=== PATIENT | male | born 1935 | race Caucasian/White ===

== ENCOUNTER 2016-03-05 15:58 | Observation (INO) | payer MEDICARE, BC, OTHER ==
[~2016-03-05] VITALS: Ht 190.5 cm; Wt 100.0 kg
[2016-03-05] VITALS (8 sets, daily range): BP systolic 122–224; BP diastolic 58–95; PULSE 56–78; RESP 16–18; TEMP 97.9; O2SAT 97–98
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
[2016-03-05 16:59] LABS: BLOOD, URINE TRACE (NEG); GLUCOSE,URINE 1000 mg/dL (NEG); KETONE, URINE NEG (NEG); NITRITE,URINE NEG (NEG); PH, URINE 5.5 (5.0-8.5); URINE COLOR LIGHT-YELLOW (YELLW/STRAW)
[2016-03-05 17:00] LABS: AUTOMATED NEUTROPHIL # 6.6 TH/MM3 (1.8-7.7); BASOPHIL % 0.4 % (0.0-2.0); EOSINOPHIL % 0.5 % (0.0-4.0); HEMATOCRIT 38.1 % (39.0-51.0); HEMO FLAGS DIFF FINAL; LYMPH % 16.5 % (9.0-44.0); LYMPHOCYTE # 1.5 TH/MM3 (1.0-4.8); MEAN CELL VOLUME 86.5 FL (80.0-100.0); MEAN CORPUSCULAR HEMOGLOBIN 28.3 PG (27.0-34.0); MEAN CORPUSCULAR HGB CONC 32.8 % (32.0-36.0); MONO % 8.5 % (0.0-8.0); NEUT % 74.1 % (16.0-70.0); PLATELET COUNT 178 TH/MM3 (150-450); RED BLOOD COUNT 4.41 MIL/MM3 (4.50-5.90); RED CELL DISTRIBUTION WIDTH 13.5 % (11.6-17.2); WHITE BLOOD COUNT 8.9 TH/MM3 (4.0-11.0)
[2016-03-05 17:00] LABS: COMMENT (UR) CULT NOT INDICATED; CULTURE IF INDICATED CULT NOT INDICATED
[2016-03-05 17:09] LABS: AMPHETAMINE, URINE NEG (NEG); BARBITURATES, URINE NEG (NEG); COCAINE, URINE NEG (NEG)
--- NOTE | 2016-03-05 17:20 | RADRPT ---
EXAM DATE/TIME: 03/05/2016 16:49 [facility] COMPARISON: No previous studies available for comparison. INDICATIONS : Chest pain, left chest mass removed recently. MEDICAL HISTORY : None. SURGICAL HISTORY : Left chest mass removed 03/03/16. ENCOUNTER: Initial ACUITY: 1 day PAIN SCORE: Non-responsive. LOCATION: Bilateral chest FINDINGS: A single view of the chest demonstrates the lungs to be symmetrically aerated without evidence of mas s, infiltrate or effusion. The cardiomediastinal contours are unremarkable. Osseous structures are intact. CONCLUSION: No acute disease. Gregg Chopra MD FACR on March 05, 2016 at 17:18 Board Certified Radiologist. This report was verified electronically.
[2016-03-05 17:30] LABS: ANION GAP 10 MEQ/L (5-15)
[2016-03-05 17:33] LABS: ALKALINE PHOSPHATASE 151 U/L (45-117); ALT (GPT) 28 U/L (12-78); AST (GOT) 18 U/L (15-37); BICARBONATE 23.6 MEQ/L (21.0-32.0); BLOOD UREA NITROGEN 29 MG/DL (7-18); CHLORIDE 103 MEQ/L (98-107); GLOMERULAR FILTRATION RATE 38 ML/MIN (>89); POTASSIUM 4.1 MEQ/L (3.5-5.1); SODIUM (NA) 137 MEQ/L (136-145); TOTAL BILIRUBIN ADULT 0.3 MG/DL (0.2-1.0)
[2016-03-05] MEDS ORDERED: INSULIN HUMAN REGULAR 1,000 UNITS/10 ML VIAL IVP ONE (18:15)
[2016-03-05] MEDS ORDERED: hydrALAZINE HCL 20 MG/ML VIAL IV PUSH PRN (20:00)
[2016-03-05] MEDS ORDERED: NALOXONE HCL 0.4 MG/ML AMP IV PRN (20:00)
[2016-03-05] MEDS ORDERED: SODIUM CHLORIDE 0.9% FLUSH 5 ML FLUSH FLUSH PRN (20:00)
[2016-03-05] MEDS ORDERED: GLUCAGON 1 MG/ML VIAL OTHER PRN (20:30)
[2016-03-05] MEDS ORDERED: DEXTROSE 50% IN WATER 50 ML VIAL(D50) IV PUSH PRN (20:30)
--- NOTE | 2016-03-05 20:48 | RADRPT ---
EXAM DATE/TIME: 03/05/2016 20:39 [facility] COMPARISON: No previous studies available for comparison. INDICATIONS : Severe confusion, worsening dementia. RADIATION DOSE: 47.63 CTDIvol (mGy) MEDICAL HISTORY : Dementia. Diabetes mellitus type 2. SURGICAL HISTORY : None. ENCOUNTER: Initial ACUITY: 1 day PAIN SCALE: 0/10 LOCATION: cranial TECHNIQUE: Multiple contiguous axial images were obtained of the head. Using automated exposure control and adj ustment of the mA and/or kV according to patient size, radiation dose was kept as low as reasonably a chievable to obtain optimal diagnostic quality images. FINDINGS: CEREBRUM: The ventricles are normal for age. Areas of low-attenuation are seen in the periventricular white mat ter. No evidence of midline shift, mass lesion, hemorrhage or acute infarction. No extra-axial flui d collections are seen. POSTERIOR FOSSA: The cerebellum and brainstem are intact. The 4th ventricle is midline. The cerebellopontine angle i s unremarkable. EXTRACRANIAL: The visualized portion of the orbits is intact. SKULL: The calvaria is intact. No evidence of skull fracture. CONCLUSION: No acute intracranial disease. Ryder Quevedo MD on March 05, 2016 at 20:46 Board Certified Radiologist. This report was verified electronically.
--- NOTE | 2016-03-05 21:26 | HHI.HP ---
[facility] Service [facility] Primary Care Physician Gael Gandhi MD Admission Diagnosis JOSE, dementia, hypertensive urgency Diagnoses: Chief Complaint: Argument with Travel History International Travel<30 Days: No Contact w/Intl Traveler <30 Da: No Traveled to Known Affected Are: No History of Present Illness History from ER PA Williams perez paperwork, and patient himself. patient however no doubt has baseline dementia and at times would forget some details. He tried to explain to me the circumstances of why he is here and her Kramer act. However he does not make much sense when he explained the details. While in emergency room, he was also noted to have blood pressure of 220s over 90s. The vitals were noted since 4 PM. However he did not receive any medications since he was not in a monitored bed in probable part. I was then called for medical admission because of these elevated blood pressure. I therefore requested for patient to be moved to medical pod immediately. Patient on examination was calm, no agitation. Also denies any pain. He reports to me that his blood pressure has been high while it at home as well. However denies any prior history of hypertension as for as he knows. Denies any headache/nausea/vomiting/chest pain/diaphoresis/shortness of breath. He does state that he is a diabetic. Review of Systems Constitutional: DENIES: Fatigue, Fever, Weight gain, Weight loss, Chills, Dizziness Respiratory: DENIES: Apneas, Cough, Wheezing, Hemoptysis, Sputum production, Shortness of breath Cardiovascular: DENIES: Chest pain, Palpitations, Syncope, Dyspnea on Exertion , PND, Lower Extremity Edema, Orthopnea, Claudication Gastrointestinal: DENIES: Abdominal pain, Black stools, Bloody stools, Constipation, Diarrhea, Nausea, Vomiting Genitourinary: DENIES: Urinary frequency, Urinary incontinence, Urgency, Hematuria, Dysuria Neurologic: DENIES: Abnormal gait, Headache, Localized weakness, Seizures, Poor Balance Past Family Social History Past Medical History Diabetes Recent lipoma resection of his chest 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 Past Surgical History Partial colectomy per patient. Reported Medications Patient's medications listed on EMRreviewed Allergies: Coded Allergies: No Known Allergies (Unverified , 03/05/16) Family History Denies family history of any medical issues. Social History Denies smoking/alcohol abuse/drug abuse. Physical Exam Vital Signs Vital Signs Date Time Temp Pulse Resp B/P Pulse Ox O2 Delivery O2 Flow Rate FiO2 03/05/16 21:23 59 16 175/74 98 Room Air 03/05/16 20:23 78 18 203/82 98 Room Air 03/05/16 20:05 63 18 03/05/16 19:59 65 18 176/84 98 Room Air 03/05/16 17:50 61 16 218/95 97 Room Air 03/05/16 16:04 97.9 56 16 224/91 97 Physical Exam GENERAL: This is a well-nourished, well-developed patient, in no apparent distress. SKIN: No rashes, ecchymoses or lesions. Cool and dry. HEAD: Atraumatic. Normocephalic. No temporal or scalp tenderness. EYES: No scleral icterus. No injection or drainage. ENT: Nose without bleeding, purulent drainage or septal hematoma.Airway patent. NECK: Trachea midline. No JVD. Supple, nontender, no meningeal signs. CARDIOVASCULAR: Regular rate and rhythm without murmurs, gallops, or rubs. RESPIRATORY: Clear to auscultation. Breath sounds equal bilaterally. No wheezes , rales, or rhonchi. GASTROINTESTINAL: Abdomen soft, non-tender, nondistended. No guarding. MUSCULOSKELETAL: Extremities without clubbing, cyanosis, or edema. No calf tenderness. NEUROLOGICAL: Awake and alert. Motor and sensory grossly within normal limits.Normal speech. Laboratory Laboratory Tests Test 03/05/16 03/05/16 16:21 16:38 Urine Color LIGHT-YELLOW Urine Turbidity CLEAR Urine pH 5.5 Urine Specific [place] 1.020 Urine Protein TRACE Urine Glucose (UA) 1000 Urine Ketones NEG Urine Occult Blood TRACE Urine Nitrite NEG Urine Bilirubin NEG Urine Urobilinogen LESS THAN 2.0 Urine Leukocyte Esterase NEG Urine RBC 1 Microscopic Urinalysis Comment CULT NOT INDICATED Urine Opiates Screen NEG Urine Barbiturates Screen NEG Urine Amphetamines Screen NEG Urine Benzodiazepines Screen NEG Urine Cocaine Screen NEG Urine Cannabinoids Screen NEG White Blood Count 8.9 Red Blood Count 4.41 Hemoglobin 12.5 Hematocrit 38.1 Mean Corpuscular Volume 86.5 Mean Corpuscular Hemoglobin 28.3 Mean Corpuscular Hemoglobin 32.8 Concent Red Cell Distribution Width 13.5 Platelet Count 178 Mean Platelet Volume 8.9 Neutrophils (%) (Auto) 74.1 Lymphocytes (%) (Auto) 16.5 Monocytes (%) (Auto) 8.5 Eosinophils (%) (Auto) 0.5 Basophils (%) (Auto) 0.4 Neutrophils # (Auto) 6.6 Lymphocytes # (Auto) 1.5 Monocytes # (Auto) 0.8 Eosinophils # (Auto) 0.0 Basophils # (Auto) 0.0 CBC Comment DIFF FINAL Differential Comment Sodium Level 137 Potassium Level 4.1 Chloride Level 103 Carbon Dioxide Level 23.6 Anion Gap 10 Blood Urea Nitrogen 29 Creatinine 1.75 Estimat Glomerular Filtration 38 Rate Random Glucose 308 Calcium Level 8.8 Total Bilirubin 0.3 Aspartate Amino Transf 18 (AST/SGOT) Alanine Aminotransferase 28 (ALT/SGPT) Alkaline Phosphatase 151 Total Protein 6.8 Albumin 3.4 Ethyl Alcohol Level LESS THAN 3 Result Diagram: 03/05/16 1638 03/05/16 1638 Imaging Last [address] 03/05/16 0000 Signed Impressions: Service Date/Time: Saturday, March 05, 2016 20:39 - CONCLUSION: No acute intracranial disease. Ryder Quevedo MD Chest X-Ray 03/05/16 0000 Signed Impressions: Service Date/Time: Saturday, March 05, 2016 16:49 - CONCLUSION: No acute disease. Gregg Chopra MD FACR Assessment and Plan Problem List: (1) Dementia ICD Code: F03.90 Status: Acute (2) Acute kidney injury ICD Code: N17.9 Status: Acute (3) Hypertensive urgency ICD Code: I16.0 Status: Acute Assessment and Plan Impression: Dementiawith acute worsening Acute renal failuresecondary to dehydration Dehydration Hypertensive crisis Kramer act status History of diabetes History of recent lipoma resection a few years ago from the chest Plan: Start patient on Norvasc 10 mg by mouth one dose now. If the blood pressure does not reach goal in about 40 minutes after Norvasc, will use hydralazine 10 mg IV every 30 minutes when necessary for blood pressure greater than 170/90. Patient's nurse is informed of the above orders and to be cautious with BP control. Head CT stat. DVT prophylaxiswith Xarelto. GI prophylaxis on pantoprazole. Discussed Condition With patient, ER Problem Qualifiers (1) Dementia: Qualified Code: F03.91 - Dementia with behavioral disturbance, unspecified dementia type Rafa Cunningham MD Mar 05, 2016 21:26
[2016-03-05] MEDS: SODIUM CHLORIDE 0.9% FLUSH 5 ML FLUSH FLUSH SCH (21:31)
[2016-03-05] MEDS: INSULIN ASPART SUPPLEMENTAL SCALE SQ SCH (21:31)
[2016-03-06] VITALS (9 sets, daily range): BP systolic 131–193; BP diastolic 60–94; PULSE 57–82; RESP 18–20; TEMP 96.7–98.2; O2SAT 95–98
[2016-03-06 04:49] LABS: AUTOMATED NEUTROPHIL # 4.9 TH/MM3 (1.8-7.7); BASOPHIL % 0.6 % (0.0-2.0); EOSINOPHIL # 0.1 TH/MM3 (0-0.4); EOSINOPHIL % 1.7 % (0.0-4.0); HEMATOCRIT 35.5 % (39.0-51.0); HEMO FLAGS DIFF FINAL; LYMPH % 25.6 % (9.0-44.0); LYMPHOCYTE # 2.1 TH/MM3 (1.0-4.8); MEAN CORPUSCULAR HEMOGLOBIN 28.6 PG (27.0-34.0); MEAN CORPUSCULAR HGB CONC 33.7 % (32.0-36.0); MONO % 10.6 % (0.0-8.0); NEUT % 61.5 % (16.0-70.0); PLATELET COUNT 196 TH/MM3 (150-450); RED BLOOD COUNT 4.17 MIL/MM3 (4.50-5.90); RED CELL DISTRIBUTION WIDTH 13.3 % (11.6-17.2)
[2016-03-06 05:13] LABS: BICARBONATE 28.2 MEQ/L (21.0-32.0); POTASSIUM 3.9 MEQ/L (3.5-5.1)
[2016-03-06] MEDS: INSULIN ASPART SUPPLEMENTAL SCALE SQ SCH ×4 (06:37→21:00)
[2016-03-06] MEDS ORDERED: DOCUSATE SODIUM 100 MG CAP PO PRN (08:45)
[2016-03-06] MEDS ORDERED: DOCUSATE SODIUM 50 MG/SENNA 8.6 MG TAB PO PRN (08:45)
[2016-03-06] MEDS ORDERED: cloNIDine HCL 0.1 MG TAB PO PRN (08:45)
[2016-03-06] MEDS ORDERED: ONDANSETRON HCL 4 MG/2 ML VIAL IV PRN (08:45)
[2016-03-06] MEDS ORDERED: CALCIUM CARBONATE 500 MG CHEWABLE TAB CHEW PRN (08:45)
[2016-03-06] MEDS ORDERED: ACETAMINOPHEN 325 MG TAB PO PRN (08:45)
[2016-03-06] MEDS ORDERED: amLODIPine BESYLATE 5 MG TAB PO SCH (09:00)
[2016-03-06] MEDS ORDERED: PILL SPLITTER OTHER PRN (09:00)
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
[2016-03-06 09:56] LABS: CKMB 5.4 NG/ML (0.5-3.6)
[2016-03-06] MEDS ORDERED: DONE5TAB7 PO (10:06)
[2016-03-06] MEDS ORDERED: HYDR-3366 PO (10:06)
[2016-03-06] MEDS ORDERED: NAME10TA PO (10:06)
[2016-03-06] MEDS ORDERED: LANTUS2P SQ (10:06)
[2016-03-06] MEDS: SODIUM CHLORIDE 0.9% FLUSH 5 ML FLUSH FLUSH SCH ×2 (10:21→21:00)
[2016-03-06] MEDS ORDERED: CITA10TA4 PO (10:34)
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
[2016-03-06] MEDS: INSULIN DETEMIR 100 UNITS/ML VIAL SQ SCH (16:07)
[2016-03-06] MEDS ORDERED: amLODIPine BESYLATE 5 MG TAB PO ONE (16:45)
[2016-03-06] MEDS: DONEPEZIL HCL 5 MG TAB PO SCH (22:16)
[2016-03-06] MEDS: MEMANTINE HCL 10 MG TAB PO SCH (22:16)
[2016-03-06] MEDS ORDERED: HALOPERIDOL LACTATE 5 MG/ML AMP IV PUSH ONE (23:00)
[2016-03-07] VITALS (8 sets, daily range): BP systolic 108–159; BP diastolic 55–75; PULSE 59–84; RESP 16–20; TEMP 96.9–98.3; O2SAT 93–96
[2016-03-07] MEDS ORDERED: HALOPERIDOL LACTATE 5 MG/ML AMP IM PRN (05:15)
[2016-03-07] MEDS: INSULIN ASPART SUPPLEMENTAL SCALE SQ SCH ×4 (06:21→21:00)
[2016-03-07] MEDS ORDERED: AMLO5 PO (07:58)
[2016-03-07] MEDS ORDERED: QUET1TAB7 PO (07:58)
[2016-03-07] MEDS ORDERED: LEVEMIR SQ (07:58)
[2016-03-07] MEDS ORDERED: NOVOLOGP2 SQ (07:58)
--- NOTE | 2016-03-07 07:59 | HHI.DCPOC ---
Discharge Care Plan Diagnosis: (1) Dementia (2) DM (diabetes mellitus) (3) HTN (hypertension) Goals to Promote Your Health * To prevent worsening of your condition and complications * To maintain your health at the optimal level Directions to Meet Your Goals Take your medications as prescribed Follow your dietary instruction Follow activity as directed Keep your appointments as scheduled Take your immunizations and boosters as scheduled If your symptoms worsen call your PCP, if no PCP go to Urgent Care Center or Emergency Room Smoking is Dangerous to Your Health. Avoid second hand smoke Call the 24-hour hour crisis hotline for domestic abuse at Tamela Vela PA-C Mar 07, 2016 07:59
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
[2016-03-07] MEDS: MEMANTINE HCL 10 MG TAB PO SCH ×2 (09:00→22:25)
[2016-03-07 09:26] LABS: AUTOMATED NEUTROPHIL # 5.3 TH/MM3 (1.8-7.7); BASOPHIL % 0.4 % (0.0-2.0); EOSINOPHIL # 0.1 TH/MM3 (0-0.4); EOSINOPHIL % 1.1 % (0.0-4.0); HEMATOCRIT 36.7 % (39.0-51.0); HEMO FLAGS DIFF FINAL; LYMPH % 19.3 % (9.0-44.0); LYMPHOCYTE # 1.5 TH/MM3 (1.0-4.8); MEAN CELL VOLUME 84.6 FL (80.0-100.0); MEAN CORPUSCULAR HEMOGLOBIN 28.6 PG (27.0-34.0); MEAN CORPUSCULAR HGB CONC 33.8 % (32.0-36.0); MONO % 9.6 % (0.0-8.0); NEUT % 69.6 % (16.0-70.0); PLATELET COUNT 200 TH/MM3 (150-450); RED BLOOD COUNT 4.34 MIL/MM3 (4.50-5.90); RED CELL DISTRIBUTION WIDTH 13.3 % (11.6-17.2); WHITE BLOOD COUNT 7.7 TH/MM3 (4.0-11.0)
[2016-03-07 09:32] LABS: BICARBONATE 26.5 MEQ/L (21.0-32.0); MAGNESIUM 2.1 MG/DL (1.5-2.5); POTASSIUM 3.7 MEQ/L (3.5-5.1)
[2016-03-07] MEDS: QUEtiapine FUMARATE 25 MG TAB PO SCH ×2 (09:32→13:45)
[2016-03-07] MEDS: HEPARIN SODIUM - SQ 10,000 UNITS/ML VIAL SQ SCH ×2 (09:32→22:25)
[2016-03-07] MEDS: SODIUM CHLORIDE 0.9% FLUSH 5 ML FLUSH FLUSH SCH ×2 (09:32→22:25)
[2016-03-07] MEDS: amLODIPine BESYLATE 5 MG TAB PO SCH (09:32)
[2016-03-07] MEDS: INSULIN DETEMIR 100 UNITS/ML VIAL SQ SCH (09:32)
[2016-03-07] MEDS: DONEPEZIL HCL 5 MG TAB PO SCH (22:25)
[2016-03-08 01:26] VITALS: PULSE 73
[2016-03-08 04:32] VITALS: BP 125/60; PULSE 62; RESP 20; TEMP 98.1; O2SAT 94
[2016-03-08] MEDS: INSULIN ASPART SUPPLEMENTAL SCALE SQ SCH ×2 (06:20→13:29)
[2016-03-08 07:52] VITALS: BP 146/65; PULSE 67; RESP 18; O2SAT 95
[2016-03-08 08:15] LABS: BICARBONATE 27.2 MEQ/L (21.0-32.0); MAGNESIUM 2.2 MG/DL (1.5-2.5); POTASSIUM 4.3 MEQ/L (3.5-5.1)
[2016-03-08] MEDS: INSULIN DETEMIR 100 UNITS/ML VIAL SQ SCH (08:46)
[2016-03-08] MEDS: HEPARIN SODIUM - SQ 10,000 UNITS/ML VIAL SQ SCH (08:46)
[2016-03-08] MEDS: amLODIPine BESYLATE 5 MG TAB PO SCH (08:47)
[2016-03-08] MEDS: QUEtiapine FUMARATE 25 MG TAB PO SCH ×2 (08:47→13:29)
[2016-03-08] MEDS: MEMANTINE HCL 10 MG TAB PO SCH (08:47)
[2016-03-08] MEDS: SODIUM CHLORIDE 0.9% FLUSH 5 ML FLUSH FLUSH SCH (08:47)
--- NOTE | 2016-03-08 10:12 | HHI.PR ---
Subjective Remarks Follow-up for dementia with agitation, awaiting psychiatric bed. The patient is seen with sitter at bedside. Discussed with RN, no acute events overnight. He denies any headache or dizziness. No medical complaints today. Objective Vitals Vital Signs Date Time Temp Pulse Resp B/P Pulse Ox O2 Delivery O2 Flow Rate FiO2 03/08/16 07:52 67 18 146/65 95 03/08/16 04:32 98.1 62 20 125/60 94 03/08/16 01:26 73 03/07/16 23:52 98.2 65 20 129/60 93 03/07/16 20:10 98.2 60 20 120/59 96 03/07/16 18:13 59 03/07/16 15:50 97.9 60 18 108/55 95 03/07/16 11:44 97.6 74 18 138/62 94 I/O 03/07/16 03/07/16 03/07/16 03/08/16 03/08/16 03/08/16 07:00 15:00 23:00 07:00 15:00 23:00 Intake Total 240 ml Output Total 25 ml 10 ml Balance 215 ml -10 ml Intake Oral 240 ml Output Drainage Total 25 ml 10 ml # Voids 1 2 1 Result Diagram: 03/07/16 0832 03/08/16 0750 Imaging Last Impressions Head CT 03/05/16 0000 Signed Impressions: Service Date/Time: Saturday, March 05, 2016 20:39 - CONCLUSION: No acute intracranial disease. Ryder Quevedo MD Chest X-Ray 03/05/16 0000 Signed Impressions: Service Date/Time: Saturday, March 05, 2016 16:49 - CONCLUSION: No acute disease. Gregg Chopra MD FACR Objective Remarks GENERAL: Well-developed well-nourished. In no acute distress. SKIN: Warm and dry. Horizontal surgical incision at left upper chest, secured with steri strips, no surrounding erythema/edema, nontender to palpation, MICK drain in place. HEENT: Normocephalic. Pupils equal and round. Mucous membranes pink and moist. CARDIOVASCULAR: Regular rate and rhythm. No murmur appreciated. RESPIRATORY: No accessory muscle use. Clear to auscultation. Breath sounds equal bilaterally. GASTROINTESTINAL: Abdomen soft, non-tender, nondistended. Bowel sounds x4. MUSCULOSKELETAL: No obvious deformities. No clubbing or cyanosis. No edema. NEUROLOGICAL: Awake and alert. No focal neurological deficits. Moves upper and lower extremities spontaneously. Normal speech. PSYCHIATRIC: Demented, calm mood and affect; insight and judgment limited. A/P Problem List: (1) Dementia ICD Code: F03.90 Status: Acute (2) Acute kidney injury ICD Code: N17.9 Status: Acute (3) Hypertensive urgency ICD Code: I16.0 Status: Resolved Assessment and Plan 80-year-old male with: Dementia with Behavioral Disturbance: presented under Kramer Act for aggressive behavior towards his . Likely worsening dementia compounded by dehydration with JOSE and hypertensive urgency. No SI/HI. Continue patient's Namenda/ Aricept. Consult PT/OT. Consulted psychiatry, recommended admission to inpatient psychiatry, started on Seroquel. Haldol IM prn. Restraints prn. Hypertensive Urgency with Accelerated HTN: BP 224/91 upon arrival with AMS as above. S/p Norvasc 10mg x1, BP now improving. Started on low dose Norvasc 5mg daily. DVT significantly improved. IV hydralazine and po clonidine prn. Diabetes Mellitus with hypoglycemia: Patient reported taking Lantus 30u daily, resumed at 20u hs. and blood glucose 74. Check hemoglobin A1c. Decreased baseline insulin to 14 units at bedtime. Continue Accu-cheks and cover with SSI. Hypoglycemic protocol. JOSE: Cr 1.75, likely secondary to dehydration, poor oral intake, no previous labs to compare. Renal function improved from admission. Monitor. Recent Lipoma Resection at Left Upper Chest: reportedly done at [facility] by Dr. Love. RN contacted surgeon, plan to remove MICK drain when < 20 cc output in 24 hrs. Patient with 35ml output today. Continue to monitor. DVT prophylaxis: SCDs Written by Anshul Bonilla, acting as scribe for Dr. Muniz on 03/08/16 at 10:09. The documentation accurately reflects the work performed [id number] by me on at [id number] Discharge Planning The patient is medically cleared for discharge awaiting psychiatric bed. Problem Qualifiers (1) Dementia: Qualified Code: F03.91 - Dementia with behavioral disturbance, unspecified dementia type Anshul Bonilla Mar 08, 2016 10:12 Heriberto Muniz MD Mar 08, 2016 14:31
[2016-03-08 12:00] VITALS: BP 132/63; PULSE 67; RESP 20; TEMP 95.5; O2SAT 96
--- NOTE | 2016-03-08 14:31 | HHI.DS ---
Discharge Summary Admission Date Mar 05, 2016 at 19:55 Discharge Date: Mar 08, 2016 Admitting Diagnosis JOSE, dementia, hypertensive urgency (1) Dementia ICD Code: F03.90 Diagnosis: Principal (2) Acute kidney injury ICD Code: N17.9 Diagnosis: Principal (3) Hypertensive urgency ICD Code: I16.0 Diagnosis: Principal Procedures none Brief History - From Admission History from ER ANGELIA perez paperwork, and patient himself. patient however no doubt has baseline dementia and at times would forget some details. He tried to explain to me the circumstances of why he is here and her Kramer act. However he does not make much sense when he explained the details. While in emergency room, he was also noted to have blood pressure of 220s over 90s. The vitals were noted since 4 PM. However he did not receive any medications since he was not in a monitored bed in probable part. I was then called for medical admission because of these elevated blood pressure. I therefore requested for patient to be moved to medical pod immediately. Patient on examination was calm, no agitation. Also denies any pain. He reports to me that his blood pressure has been high while it at home as well. However denies any prior history of hypertension as for as he knows. Denies any headache/nausea/vomiting/chest pain/diaphoresis/shortness of breath. He does state that he is a diabetic. CBC/BMP: 03/07/16 0832 03/08/16 0750 Significant Findings Laboratory Tests Test 03/05/16 03/05/16 03/06/16 03/07/16 16:21 16:38 04:29 08:32 Urine Glucose (UA) 1000 mg/dL (NEG) Urine Occult Blood TRACE (NEG) Red Blood Count 4.41 MIL/MM3 4.17 MIL/MM3 4.34 MIL/MM3 (4.50-5.90) (4.50-5.90) (4.50-5.90) Hemoglobin 12.5 GM/DL 11.9 GM/DL 12.4 GM/DL (13.0-17.0) (13.0-17.0) (13.0-17.0) Hematocrit 38.1 % 35.5 % 36.7 % (39.0-51.0) (39.0-51.0) (39.0-51.0) Neutrophils (%) (Auto) 74.1 % (16.0-70.0) Monocytes (%) (Auto) 8.5 % (0.0-8.0) 10.6 % 9.6 % (0.0-8.0) (0.0-8.0) Blood Urea Nitrogen 29 MG/DL (7-18) 27 MG/DL (7-18) 23 MG/DL (7-18) Creatinine 1.75 MG/DL 1.40 MG/DL 1.34 MG/DL (0.60-1.30) (0.60-1.30) (0.60-1.30) Estimat Glomerular Filtration 38 ML/MIN (>89) 49 ML/MIN (>89) 51 ML/MIN (>89) Rate Random Glucose 308 MG/DL (74-106) Alkaline Phosphatase 151 U/L (45-117) Total Creatine Kinase 430 U/L (39-308) Creatine Kinase MB 5.4 NG/ML (0.5-3.6) Test 03/08/16 07:50 Chloride Level 110 MEQ/L (98-107) Blood Urea Nitrogen 32 MG/DL (7-18) Creatinine 1.58 MG/DL (0.60-1.30) Estimat Glomerular Filtration 42 ML/MIN (>89) Rate Imaging Last Impressions Head CT 03/05/16 0000 Signed Impressions: Service Date/Time: Saturday, March 05, 2016 20:39 - CONCLUSION: No acute intracranial disease. Ryder Quevedo MD Chest X-Ray 03/05/16 0000 Signed Impressions: Service Date/Time: Saturday, March 05, 2016 16:49 - CONCLUSION: No acute disease. Gregg Chopra MD FACR PE at Discharge GENERAL: Well-developed well-nourished. In no acute distress. SKIN: Warm and dry. Horizontal surgical incision at left upper chest, secured with steri strips, no surrounding erythema/edema, nontender to palpation, MICK drain in place. HEENT: Normocephalic. Pupils equal and round. Mucous membranes pink and moist. CARDIOVASCULAR: Regular rate and rhythm. No murmur appreciated. RESPIRATORY: No accessory muscle use. Clear to auscultation. Breath sounds equal bilaterally. GASTROINTESTINAL: Abdomen soft, non-tender, nondistended. Bowel sounds x4. MUSCULOSKELETAL: No obvious deformities. No clubbing or cyanosis. No edema. NEUROLOGICAL: Awake and alert. No focal neurological deficits. Moves upper and lower extremities spontaneously. Normal speech. PSYCHIATRIC: Demented, calm mood and affect; insight and judgment limited. Hospital Course 80-year-old male with: Dementia with Behavioral Disturbance: presented under Kramer Act for aggressive behavior towards his . Likely worsening dementia compounded by dehydration with JOSE and hypertensive urgency. No SI/HI. Continue patient's Namenda/ Aricept. Consult PT/OT. Consulted psychiatry, recommended admission to inpatient psychiatry, started on Seroquel. Haldol IM prn. Restraints prn. Hypertensive Urgency with Accelerated HTN: BP 224/91 upon arrival with AMS as above. S/p Norvasc 10mg x1, BP now improving. Started on low dose Norvasc 5mg daily. DVT significantly improved. IV hydralazine and po clonidine prn. Diabetes Mellitus with hypoglycemia: Patient reported taking Lantus 30u daily, resumed at 20u hs. and blood glucose 74. Check hemoglobin A1c. Decreased baseline insulin to 14 units at bedtime. Continue Accu-cheks and cover with SSI. Hypoglycemic protocol. JOSE: Cr 1.75, likely secondary to dehydration, poor oral intake, no previous labs to compare. Renal function improved from admission. Monitor. Recent Lipoma Resection at Left Upper Chest: reportedly done at [facility] by Dr. Love. RN contacted surgeon, plan to remove MICK drain when < 20 cc output in 24 hrs. Patient with 35ml output today. Continue to monitor. DVT prophylaxis: SCDs Pt Condition on Discharge: Stable Discharge Disposition: Disc to Psych Care Fac Discharge Time: > 30 minutes Discharge Instructions DIET: Follow Instructions for: Heart Healthy Diet, Diabetic Diet Activities you can perform: Regular-No Restrictions Follow up Referrals: PCP Follow-up - 1 Week with Gael Gandhi MD New Medications: Insulin Aspart Inj (Novolog Inj) 1,000 Unit/10 Ml Vial 1-9 UNITS SQ ACHS sugars < 70,0units; sugars 150-199,1 unit sugars 200-249,3 units; sugars 250-299,5 units sugars 300-349,7 units; sugars > 349,9 units Blood Sugar Management #10 Ref 0 ML Amlodipine (Norvasc) 5 Mg Tab 5 MG PO DAILY Blood Pressure Management #30 TAB Insulin Detemir Inj (Levemir Inj) 1,000 unit/ 10 ML Vial 20 UNITS SQ DAILYAC Blood Sugar Management #10 INJECTION Quetiapine (Quetiapine) 25 Mg Tab 25 MG PO BID@09,12 Control Mood Swing #60 TAB Continued Medications: Donepezil (Donepezil) 5 Mg Tab 5 MG PO HS Dementia #30 Ref 0 TAB Memantine (Namenda) 10 Mg Tab 10 MG PO BID Alzheimer Disease #30 Ref 0 TAB Discontinued Medications: Hydrocodone-Acetaminophen (Elmo) 10-325 Mg Tab 1 TAB PO Q4H PRN PAIN Ref 0 TAB Insulin Glargine Inj (Lantus Inj) 1,000 Unit/10 Ml Vial 25-32 UNITS SQ SLIDING SCALE PROTOC Blood Sugar Management Ref 0 VIAL Heriberto Muniz MD Mar 08, 2016 14:31
[2016-03-08] MEDS ORDERED: LANTUS2P SQ (16:29)
[2016-03-08] MEDS ORDERED: LOPE7.5C PO (16:30)
[2016-03-09] MEDS ORDERED: INSULIN DETEMIR 100 UNITS/ML VIAL SQ SCH (08:00)
[2016-03-09 10:02] LABS: HEMOGLOBIN A1a 1.1 %; HEMOGLOBIN A1b 1.9 %; HEMOGLOBIN Ao 81.6 %; HEMOGLOBIN LA1C 2.5 %; HEMOGLOBIN P3 4.4 %
== END 2016-03-08 15:00 ==
LOC: NEPB 15:58 → INTOOBSV 19:55 → NEDA 19:55 → OBSVTOIN 19:55 → NEDH 03-06 00:20 → NEPFCDU 03-06 14:42 → NEPHCDU 03-06 16:37
PROVIDERS: ADMIT Internal Medicine; ATTEND Internal Medicine
DX: F03.91 Unspecified dementia, unspecified severity, with behavioral disturbance (principal); N17.9 Acute kidney failure, unspecified; I16.0 Hypertensive urgency; E86.0 Dehydration; E11.649 Type 2 diabetes mellitus with hypoglycemia without coma; I10 Essential (primary) hypertension; S80.211A Abrasion, right knee, initial encounter; Z78.1 Physical restraint status; Z86.73 Personal history of transient ischemic attack (TIA), and cerebral infarction without residual deficits; Z79.4 Long term (current) use of insulin; W01.0XXA Fall on same level from slipping, tripping and stumbling without subsequent striking against object, initial encounter
CPT/HCPCS: 70450; 71010; 80048; 80053; 80307; 81001; 82550; 82552; 82948; 83036; 83735; 85025; 96374; 97110; 97163; 97166; 97530; 99285; G0378; G8987; G8988; G8989; J1630; J1644; J1815; 80320

== ENCOUNTER 2016-03-08 12:35 | Inpatient (IN) | payer MEDICARE, BC ==
[~2016-03-08] VITALS: Ht 190.5 cm; Wt 87.7 kg
[~2016-03-08 12:35] MED LIST: AMLO5 PO; DONE5TAB7 PO; LEVEMIR SQ; NAME10TA PO; NOVOLOGP2 SQ; QUET1TAB7 PO
[2016-03-08 15:22] VITALS: BP 119/60; PULSE 85; RESP 18; TEMP 97.4; O2SAT 96
--- NOTE | 2016-03-08 15:28 | HHI.HP ---
Provisional Diagnosis Admission Date Mar 08, 2016 at 12:35 [place] I. Dementia with behavior disturbance [place] II. Deferred [place] III. History of hypertension and kidney injury [place] IV. Moderate stress with aggressive behavior [place] V. GAF of 40 Certification of Person's Competence To Provide Express and Informed Consent I have personally examined Janes Fields , a person being served at [facility] on, Mar 08, 2016 15:17. Express and informed consent means consent voluntarily given in writing, by a competent person, after sufficient explanation and disclosure of the subject matter involved to enable the person to make a knowing and willful decision without any element of force, fraud, deceit, duress, or other form of constraint or coercion. This person is 18 years of age or older, is not now known to be incompetent to consent to treatment with a guardian advocate, and does not have a health care surrogate or proxy currently making medical treatment decisions. I have found this person to be one of the following: [] Competent to provide express and informed consent, as defined above, for voluntary admission to this facility and is competent to provide express and informed consent for treatment. He/she has the consistent capacity to make well reasoned, willful, and knowing decisions concerning his or her medical or mental health treatment. The person fully and consistently understands the purpose of the admission for examination/placement and is fully capable of personally exercising all rights assured [place] [x] Incompetent to provide express and informed consent to voluntary admission, and this is incompetent to provide express and informed consent to treatment. The person must be transferred to involuntary status and a petition for a guardian advocate filed with the Circuit Court. [] Refusing to provide express and informed consent to voluntary admission but is competent to provide express and informed consent for treatment. The person must be discharged or transferred to involuntary status. Form shall be completed within 24 hours of a person's arrival at the receiving facility and filed in the clinical record of each person: 1. Admitted on a voluntary basis 2. Permitted to provide express and informed consent to his/her own treatment 3. Allowed to transfer from involuntary to voluntary status 4. Prior to permitting a person to consent to his or her own treatment after having been previously found incompetent to consent to treatment. History of Present Illness Capacity: Lacks Capacity HPI This is a 80-year-old white man who was transferred from [facility] for further evaluation and treatment. Patient was brought under Kramer act for his aggressive behavior towards his . Reportedly patient became extremely aggressive towards his due to thinking that he had been kidnapped. Patient was disoriented. Patient was under observation for hypertensive crisis and acute kidney injury. Once she was medically stable then he was transferred to psychiatric unit for further care. Patient has a history of dementia with aggressive behavior reportedly patient has been suffering with dementia for the last 3 or 4 years but in the last 6 months is getting worse where he has been having difficulty forming his thoughts he still believes that he may be in [place]. And his memory is declining. Patient is now fully dependent on his . And the feels that she is not able to take care of him and needs some professional assistance. Patient doesn't seem to be actively hallucinating however he has been having difficulty forming his thoughts he was not agitated Review of Systems Except as stated in HPI: all other systems reviewed are Neg Psychiatric: COMPLAINS OF: Confusion, Mood changes Past Psych History Psychological trauma history Denies any physical verbal or sexual abuse growing up Violence risk - others (6 mos) Patient has recently become aggressive towards his Violence risk - self (6 mos) Denied any suicidal ideation intentions or plan Substance Abuse History Drugs/Alcohol past 12 months Denies any alcohol or drug use and/or abuse Past Family Social History Coded Allergies: No Known Allergies (Unverified , 03/05/16) Active Scripts Insulin Aspart Inj (Novolog Inj)1,000 Unit/10 Ml Vial1-9 Units SQ ACHS #10 ML Ref 0 sugars < 70,0units; sugars 150-199,1 unit sugars 200-249,3 units; sugars 250-299,5 units sugars 300-349,7 units; sugars > 349,9 units Prov:Tamela Vela PA-C 03/07/16 Amlodipine (Norvasc)5 Mg Tab5 Mg PO DAILY #30 TAB Prov:Tamela Vela PA-C 03/07/16 Quetiapine 25 Mg Tab25 Mg PO BID@09,12 #60 TAB Prov:Tamela Vela PA-C 03/07/16 Insulin Detemir Inj (Levemir Inj)1,000 unit/ 10 ML Vial20 Units SQ DAILYAC #10 INJECTION Prov:Tamela Vela PA-C 03/07/16 Reported Medications Donepezil 5 Mg Tab5 Mg PO HS #30 TAB Ref 0 03/06/16 Memantine (Namenda)10 Mg Tab10 Mg PO BID #30 TAB Ref 0 03/06/16 Discontinued Reported Medications Hydrocodone-Acetaminophen ([place])10-325 Mg Tab1 Tab PO Q4H PRN (PAIN) Ref 0 03/06/16 Insulin Glargine Inj (Lantus Inj)1,000 Unit/10 Ml M[place]06-33 Units SQ SLIDING SCALE PROTOC Ref 0 03/06/16 Citalopram 10 Mg Tab10 Mg PO DAILY #30 TAB Ref 0 03/06/16 Family History Negative for any emotional difficulty nervous breakdown or suicide attempt Social History Patient was born in [place] and raised there. At the present time he lives in [place]. With his . He has bachelor's and master's degree. He has been to his and has 3 adult children. Patient worked prior to retiring in the [employer] department. Patient denied any alcohol or drug use and/ or abuse. No legal difficulty reported. Patient's Strengths (min. 2) Patient is cooperative and willing to take the medication to control his behavior Physical Exam Please see the emergency room evaluation patient is not complaining of any physical problem his vital signs are stable and he was medically cleared Mental Status Examination This is a 80-year-old white tall male who looks about the same as his stated age was alert oriented 1 cooperative casually dressed his speech was at times hesitant and difficulty forming his thoughts. His mood was described as feeling okay. His affect was labile. He denied any suicidal ideation intentions or plan. He has some difficulty forming his thoughts so he has loose association. He denied any active auditory or visual hallucinations. Or any suicidal ideation intentions of plan. Reportedly patient had been having difficulty controlling his impulses and aggression. Patient has a history of dementia and memory problem. His insight and judgment is poor gait is normal fund of knowledge average Previous Suicide Attempts: No Previous Homicide Attempts: No Assessment & Plan Problem List: (1) Dementia ICD Code: F03.90 Assessment & Plan Estimated LOS: 5 days. This is a 80-year-old white male with a history of advanced dementia. Gradually is becoming worse in terms of his cognitive impairment. He also has been becoming aggressive towards his and she feels unable to care for himself and needs some help area patient was hospitalized for stabilization of on office medication and management of his behavior dysregulation and poor impulse control. Admitted observe and evaluate and treat. Patient will participate in therapeutic activity on the floor We will initiate the first opinion cost for the second opinion. We will adjust the medication to control his behavior. Ask social staff worker to assist in aftercare and discharge planning as is not able to look after him. Vital signs every shift.. Request HC Surrog/Guard Advoc?: Yes Himanshu Duque MD Mar 08, 2016 15:28
[2016-03-08] MEDS ORDERED: ACETAMINOPHEN 325 MG TAB PO PRN ×2 (15:45)
[2016-03-08] MEDS ORDERED: LORazepam 2 MG/ML VIAL IM PRN (15:45)
[2016-03-08] MEDS ORDERED: ALUMINUM/MAGNESIUM/SIMETH 30 ML CUP PO PRN ×2 (15:45)
[2016-03-08] MEDS ORDERED: LORazepam 0.5 MG TAB PO PRN (15:45)
[2016-03-08] MEDS ORDERED: LORazepam 2 MG/ML VIAL - age > 65 yrs IM PRN (15:45)
[2016-03-08] MEDS ORDERED: LORazepam 0.5 MG TAB age > 65 yrs PO PRN (15:45)
[2016-03-08] MEDS ORDERED: MAGNESIUM HYDROXIDE SUSP 30 ML CUP PO PRN ×2 (15:45)
[2016-03-08] MEDS ORDERED: LANTUS2P SQ (16:29)
[2016-03-08] MEDS ORDERED: LOPE7.5C PO (16:30)
[2016-03-08] MEDS: LORazepam 0.5 MG TAB PO PRN (16:45)
[2016-03-08] MEDS ORDERED: DEXTROSE 50% IN WATER 50 ML VIAL(D50) IV PUSH PRN (18:00)
[2016-03-08] MEDS ORDERED: GLUCAGON 1 MG/ML VIAL OTHER PRN (18:00)
[2016-03-08] MEDS: QUEtiapine FUMARATE 100 MG TAB PO SCH ×2 (18:00→19:56)
[2016-03-08] MEDS: INSULIN ASPART SUPPLEMENTAL SCALE SQ SCH (19:45)
[2016-03-08] MEDS: INSULIN DETEMIR 100 UNITS/ML VIAL SQ SCH (19:57)
[2016-03-08] MEDS: REMOVE OLD NICOTINE PATCH T-DERMAL SCH (20:02)
[2016-03-09 05:46] VITALS: BP 172/72; PULSE 78; RESP 16; TEMP 98.4; O2SAT 96
[2016-03-09] MEDS: INSULIN ASPART SUPPLEMENTAL SCALE SQ SCH ×4 (06:06→21:00)
--- NOTE | 2016-03-09 08:35 | PD.CONS ---
[facility] team Reason for Consult Medical management hypertension, diabetes Primary Care Physician Gael Gandhi MD Diagnoses: History of Present Illness Patient is an 80 year old white male who came into the hospital under Kramer act. In the ED, patient's blood pressure noted to be 220s. He was admitted in the observation unit secondary to hypertensive crisis. Primary medical history includes dementia, diabetes. He was started on Norvasc, and when necessary hydralazine. CT of the head was done with no acute intracranial disease. Patient also has acute kidney injury during this admission but has improved. His overall status has improved. He is now admitted to inpatient psychiatry unit. Consulted for medical management. Patient seen today. Oriented to self only. Follows commands and answers questions occasionally. Denies pain and discomfort. Denies SOB/ dyspnea. Denies chestpain, palpitations, headaches, dizziness. Denies fevers, chills, n/v /d. Review of Systems ROS Limitations: Poor Historian Other Negative except for what is noted on history of present illness. Past Family Social History Allergies: Coded Allergies: No Known Allergies (Unverified , 03/05/16) Past Medical History Based on chart review Diabetes Recent lipoma resection on his chest History of colon cancer Past Surgical History Based on chart review Partial colectomy Reported Medications New Medications: Insulin Aspart Inj (Novolog Inj) 1,000 Unit/10 Ml Vial 1-9 UNITS SQ ACHS sugars < 70,0units; sugars 150-199,1 unit sugars 200-249,3 units; sugars 250-299,5 units sugars 300-349,7 units; sugars > 349,9 units Blood Sugar Management #10 Ref 0 ML Amlodipine (Norvasc) 5 Mg Tab 5 MG PO DAILY Blood Pressure Management #30 TAB Insulin Detemir Inj (Levemir Inj) 1,000 unit/ 10 ML Vial 20 UNITS SQ DAILYAC Blood Sugar Management #10 INJECTION Quetiapine (Quetiapine) 25 Mg Tab 25 MG PO BID@09,12 Control Mood Swing #60 TAB Continued Medications: Donepezil (Donepezil) 5 Mg Tab 5 MG PO HS Dementia #30 Ref 0 TAB Memantine (Namenda) 10 Mg Tab 10 MG PO BID Alzheimer Disease #30 Ref 0 TAB Active Ordered Medications Current Medications Medications (Trade) Dose Ordered Sig/Rose Mary Route Start Time Stop Time Status Last Admin (SEROquel) 100 mg DAILY@1800 PO 03/08/16 18:00 03/08/16 18:00 (SEROquel) 100 mg HS PO 03/08/16 21:00 03/08/16 19:56 (Ativan) 0.5 mg Q8H PRN PO 03/08/16 15:30 03/08/16 16:45 (Ativan) 0.5 mg Q12H PRN PO 03/08/16 15:45 (Ativan Inj) 0.5 mg Q12H PRN IM 03/08/16 15:45 (Tylenol) 650 mg Q4H PRN PO 03/08/16 15:45 (Milk Of Magnesia Liq) 30 ml DAILY PRN PO 03/08/16 15:45 (Mag-Al Plus Susp Liq) 30 ml Q6H PRN PO 03/08/16 15:45 (Habitrol 21 Mg Patch.24 Hr) 1 patch DAILY T-DERMAL 03/09/16 09:00 Miscellaneous Information 1 HS T-DERMAL 03/08/16 21:00 03/08/16 20:02 (Levemir Inj) 14 units HS SQ 03/08/16 21:00 03/08/16 19:57 (D50w (Vial) Inj) 25 ml UNSCH PRN IV PUSH 03/08/16 18:00 (Glucagon Inj) 1 mg UNSCH PRN OTHER 03/08/16 18:00 Family History Patient reports family history of hypertension and diabetes Social History Patient reports he is a former smoker but has not had a cigarette for "many years" Denies alcohol use Denies illicit drug use Physical Exam Vital Signs Vital Signs Date Time Temp Pulse Resp B/P Pulse Ox O2 Delivery O2 Flow Rate FiO2 03/09/16 05:46 98.4 78 16 172/72 96 03/08/16 15:22 97.4 85 18 119/60 96 Physical Exam GENERAL: This is a well-nourished, well-developed patient, in no apparent distress. SKIN: No rashes, ecchymoses or lesions. Cool and dry. HEAD: Atraumatic. Normocephalic. No temporal or scalp tenderness. EYES: Pupils equal round and reactive. Extraocular motions intact. No scleral icterus. No injection or drainage. ENT: Nose without bleeding. Throat without erythema. Uvula midline. Airway patent. NECK: Trachea midline. No JVD or lymphadenopathy. Supple, nontender, no meningeal signs. CARDIOVASCULAR: Regular rate and rhythm without murmurs, gallops, or rubs. RESPIRATORY: Clear to auscultation. Breath sounds equal bilaterally. No wheezes , rales, or rhonchi. GASTROINTESTINAL: Abdomen soft, non-tender, nondistended. No hepato-splenomegaly , or palpable masses. No guarding. MUSCULOSKELETAL: Extremities without clubbing, cyanosis, or edema. No joint tenderness, effusion, or edema noted. No calf tenderness. Negative Homans sign bilaterally. NEUROLOGICAL: Awake and alert. Oriented to self. VOGEL weakly. Slightly slurred speech. Assessment and Plan Problem List: (1) Dementia ICD Code: F03.90 Status: Acute (2) DM (diabetes mellitus) ICD Code: E11.9 Status: Acute (3) HTN (hypertension) ICD Code: I10 Status: Acute (4) Acute kidney injury ICD Code: N17.9 Status: Acute Assessment and Plan 80-year-old male with: Dementia with Behavioral Disturbance: presented under Kramer Act for aggressive behavior towards his . Likely worsening dementia compounded by dehydration with JOSE and hypertensive urgency. No SI/HI. Continue patient's Namenda/ Aricept. Consult PT/OT. Consulted psychiatry, recommended admission to inpatient psychiatry, started on Seroquel. Haldol IM prn. Restraints prn. HTN - continue Norvasc 5 mg daily, - Monitor BP trend Diabetes Mellitus 2 - hemoglobin A1c 8.2 - continue Levemir 14 units QHS. - Insulin sliding scale. May benefit with prandial insulin. - Monitor Accu-Cheks. Monitor for hypoglycemia. Chronic kidney disease - was in acute kidney injury during hospital admission. Improving creatinine. Probably baseline is 1.2-1.3 - Monitor BMP Recent Lipoma Resection at Left Upper Chest: reportedly done at [facility] by Dr. Love. RN contacted surgeon, plan to remove MICK drain when < 20 cc output in 24 hrs. Patient with 35ml output today. Continue to monitor. Thank you for this consultation. We will follow patient with you. Written by Abel Walker, acting as scribe for Dr. Barnes on 03/09/16 at 09: 56. The documentation accurately reflects the work performed [id number] by me on at 09:56. Code Status Full code Discussed Condition With Patient, nursing Abel Calero Mar 09, 2016 08:35 Elvira Barnes MD Mar 09, 2016 11:00
[2016-03-09] MEDS: NICOTINE 21 MG/24 HR PATCH T-DERMAL SCH (09:00)
[2016-03-09] MEDS ORDERED: QUEtiapine FUMARATE 100 MG TAB PO SCH (09:00)
[2016-03-09] MEDS ORDERED: hydrALAZINE HCL 10 MG TAB PO PRN (11:00)
[2016-03-09] MEDS ORDERED: cloNIDine HCL 0.1 MG TAB PO PRN (11:00)
[2016-03-09] MEDS: amLODIPine BESYLATE 5 MG TAB PO SCH (12:30)
[2016-03-09] MEDS: MEMANTINE HCL 10 MG TAB PO SCH (12:30)
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
[2016-03-09] MEDS: QUEtiapine FUMARATE 100 MG TAB PO SCH ×2 (18:56→21:21)
[2016-03-09] MEDS: REMOVE OLD NICOTINE PATCH T-DERMAL SCH (21:00)
[2016-03-09] MEDS: DONEPEZIL HCL 5 MG TAB PO SCH (21:20)
[2016-03-09] MEDS: INSULIN DETEMIR 100 UNITS/ML VIAL SQ SCH (21:26)
[2016-03-10] MEDS: LORazepam 0.5 MG TAB PO PRN ×2 (02:22→16:00)
[2016-03-10 05:20] VITALS: BP 138/60; PULSE 76; RESP 16; TEMP 97.7; O2SAT 95
[2016-03-10] MEDS: INSULIN ASPART SUPPLEMENTAL SCALE SQ SCH ×4 (06:32→21:02)
[2016-03-10 07:43] LABS: ANION GAP 6 MEQ/L (5-15); BLOOD UREA NITROGEN 43 MG/DL (7-18); CHLORIDE 105 MEQ/L (98-107); GLOMERULAR FILTRATION RATE 37 ML/MIN (>89); HDL CHOLESTEROL 84.8 MG/DL (40.0-60.0); LDL CHOLESTEROL 59 MG/DL (0-99); POTASSIUM 4.1 MEQ/L (3.5-5.1); SODIUM (NA) 139 MEQ/L (136-145)
[2016-03-10] MEDS: MEMANTINE HCL 10 MG TAB PO SCH (08:37)
[2016-03-10] MEDS: amLODIPine BESYLATE 5 MG TAB PO SCH (08:37)
[2016-03-10] MEDS: NICOTINE 21 MG/24 HR PATCH T-DERMAL SCH (08:40)
[2016-03-10 12:02] LABS: HEMOGLOBIN A1a 1.1 %; HEMOGLOBIN A1b 1.9 %; HEMOGLOBIN Ao 82.1 %; HEMOGLOBIN P3 4.6 %
--- NOTE | 2016-03-10 15:10 | HHI.PYPN ---
Subjective Remarks Patient discussed with treatment team, chart reviewed, patient seen on unit. Patient seen in [place] chair initially drowsing though arousable to awake alert though diffusely confused to place time and situation. Staff states he needs much encouragement with ADLs hygiene ambulation and eating. So far other been no behavioral problems. Will adjust schedule Seroquel to 50 mg noon 50 mg 6 PM and 100 mg at at bedtime. We'll also get PT referral to assess for ambulation Review of Systems Except as stated in HPI: all other systems reviewed are Neg Objective Alert: Yes (patient drowsy to alert) [place]: Person Mood: Calm Affect: Restricted Memory Intact: Comment (very poor) Hallucinations: Other (denies) Delusions: No Delusion Type: Paranoid Suicidal: Ideation (denies) Homicidal: Ideation (denies) Insight/Judgement Very poor Labs Test 03/10/16 06:44 Sodium Level 139 MEQ/L Potassium Level 4.1 MEQ/L Chloride Level 105 MEQ/L Carbon Dioxide Level 28.0 MEQ/L Anion Gap 6 MEQ/L Blood Urea Nitrogen 43 MG/DL Creatinine 1.76 MG/DL Estimat Glomerular Filtration 37 ML/MIN Rate Random Glucose 94 MG/DL Hemoglobin A1c 8.0 % Calcium Level 8.9 MG/DL Triglycerides Level 147 MG/DL Cholesterol Level 173 MG/DL LDL Cholesterol 59 MG/DL HDL Cholesterol 84.8 MG/DL Cholesterol/HDL Ratio 2.04 RATIO Vitals/IOs Vital Signs Date Time Temp Pulse Resp B/P Pulse Ox O2 Delivery O2 Flow Rate FiO2 03/10/16 05:20 97.7 76 16 138/60 95 Intake and Output 03/09/16 03/09/16 03/09/16 07:59 15:59 23:59 Intake Total 0 ml 720 ml 480 ml Balance 0 ml 720 ml 480 ml Assessment & Plan Problem List: (1) Dementia ICD Code: F03.90 Assessment & Plan Estimated LOS: days patient continues quite demented though no behavior problems noted so far. Please see medication changes above Justification for Cont. Inpt. At this time patient would significantly decompensated place a lower level of care Discharge Planning To be determined Request HC Surrog/Guard Advoc?: Yes Problem Qualifiers (1) Dementia: Qualified Code: F03.91 - Dementia with behavioral disturbance, unspecified dementia type Ari Antonio MD Mar 10, 2016 15:10
[2016-03-10 18:00] VITALS: BP 131/89; PULSE 92; RESP 17; O2SAT 96
[2016-03-10] MEDS: QUEtiapine FUMARATE 25 MG TAB PO SCH (18:12)
[2016-03-10] MEDS: REMOVE OLD NICOTINE PATCH T-DERMAL SCH (21:00)
[2016-03-10] MEDS: INSULIN DETEMIR 100 UNITS/ML VIAL SQ SCH (21:02)
[2016-03-10] MEDS: DONEPEZIL HCL 5 MG TAB PO SCH (21:03)
[2016-03-10] MEDS: QUEtiapine FUMARATE 100 MG TAB PO SCH (21:03)
[2016-03-11 05:07] VITALS: BP 142/74; PULSE 72; RESP 16; TEMP 97.9; O2SAT 96
[2016-03-11] MEDS: INSULIN ASPART SUPPLEMENTAL SCALE SQ SCH ×4 (06:04→21:00)
[2016-03-11] MEDS: NICOTINE 21 MG/24 HR PATCH T-DERMAL SCH (08:51)
[2016-03-11] MEDS: MEMANTINE HCL 10 MG TAB PO SCH (08:51)
[2016-03-11] MEDS: amLODIPine BESYLATE 5 MG TAB PO SCH (08:51)
--- NOTE | 2016-03-11 10:46 | HHI.PR ---
Subjective Remarks Follow-up hypertension, diabetes mellitus, acute on chronic kidney injury. Patient seen in day room in geriatric chair. Patient alert and oriented to person only poor historian and offers no specific complaints. Appears to be in no acute distress. Objective Vitals Vital Signs Date Time Temp Pulse Resp B/P Pulse Ox O2 Delivery O2 Flow Rate FiO2 03/11/16 05:07 97.9 72 16 142/74 96 03/10/16 18:00 92 17 131/89 96 I/O 03/10/16 03/10/16 03/10/16 03/11/16 03/11/16 03/11/16 07:00 15:00 23:00 07:00 15:00 23:00 Intake Total 0 ml 840 ml 0 ml Balance 0 ml 840 ml 0 ml Intake Oral 0 ml 840 ml 0 ml # Voids 2 3 1 # Bowel Movements 0 Result Diagram: 03/10/16 0644 Objective Remarks GENERAL: This is a well-nourished, well-developed patient, in no apparent distress. SKIN: No rashes, ecchymoses or lesions. Cool and dry. HEAD: Atraumatic. Normocephalic. No temporal or scalp tenderness. EYES: Extraocular motions intact. No scleral icterus. No injection or drainage. CARDIOVASCULAR: Regular rate and rhythm without murmurs, gallops, or rubs. RESPIRATORY: Clear to auscultation. Breath sounds equal bilaterally. No wheezes , rales, or rhonchi. GASTROINTESTINAL: Abdomen soft, non-tender, nondistended. No hepato-splenomegaly , or palpable masses. No guarding. MUSCULOSKELETAL: Extremities without clubbing, cyanosis, or edema. No joint tenderness, effusion, or edema noted. No calf tenderness. Negative Homans sign bilaterally. NEUROLOGICAL: Awake and alert. Oriented to self. Slightly slurred speech. A/P Problem List: (1) Dementia ICD Code: F03.90 Status: Acute (2) DM (diabetes mellitus) ICD Code: E11.9 Status: Acute (3) HTN (hypertension) ICD Code: I10 Status: Acute (4) Acute kidney injury ICD Code: N17.9 Status: Acute Assessment and Plan 80-year-old male with: Dementia with Behavioral Disturbance: presented under [place] Act for aggressive behavior towards his . Likely worsening dementia compounded by dehydration with JOSE and hypertensive urgency. No SI/HI. Continue patient's Namenda/ Aricept. Consult PT/OT. Consulted psychiatry, recommended admission to inpatient psychiatry, started on Seroquel. Haldol IM prn. Restraints prn. HTN - continue Norvasc 5 mg daily, - Monitor BP trend Diabetes Mellitus 2 - hemoglobin A1c 8.2 - continue Levemir 14 units QHS. - Insulin sliding scale. May benefit with prandial insulin. - Monitor Accu-Cheks. Monitor for hypoglycemia. JOSE on Chronic kidney disease - was in acute kidney injury during hospital admission. Creatinine had improved in patient with fluid but 03/10/2016 worsened 1.76. Probably baseline is 1.2-1.3 - Monitor BMP - encourage PO fluid intake Recent Lipoma Resection at Left Upper Chest: reportedly done at [facility] by Dr. Love. RN contacted surgeon, plan to remove MICK drain when < 20 cc output in 24 hrs. Patient with 35ml output today. Continue to monitor. Code Status Full code Discussed Condition With Patient, nursing and Dr. Sinha Problem Qualifiers (1) Dementia: Qualified Code: F03.91 - Dementia with behavioral disturbance, unspecified dementia type Nanci Paniagua Mar 11, 2016 10:46
[2016-03-11] MEDS: QUEtiapine FUMARATE 25 MG TAB PO SCH ×2 (12:22→16:38)
--- NOTE | 2016-03-11 13:08 | HHI.PYPN ---
Subjective Remarks Patient seen in day room with nurse Lorena, chart review, patient sitting in [place] chair he is alert though diffusely confused all 4 spheres responses are quite disorganized almost the point of word salad. He is showing no behavior problems at this time. He has been compliant with medications. Review of Systems Except as stated in HPI: all other systems reviewed are Neg Objective Alert: Yes (patient drowsy to alert) [place]: Person Mood: Calm Affect: Restricted Memory Intact: Comment (very poor) Hallucinations: Other (denies) Delusions: No Delusion Type: Paranoid Suicidal: Ideation (denies) Homicidal: Ideation (denies) Insight/Judgement Very poor Vitals/IOs Vital Signs Date Time Temp Pulse Resp B/P Pulse Ox O2 Delivery O2 Flow Rate FiO2 03/11/16 05:07 97.9 72 16 142/74 96 Intake and Output 03/10/16 03/10/16 03/11/16 08:00 16:00 00:00 Intake Total 0 ml 840 ml Balance 0 ml 840 ml Assessment & Plan Problem List: (1) Dementia ICD Code: F03.90 Assessment & Plan Estimated LOS: days patient is severely demented, but this time compliant medications no behavior problems. Need to observe further with his behaviors as reproach late afternoon and early evening Justification for Cont. Inpt. At this time patient would severely decompensate if placed on the lower level of care Discharge Planning To be determined Request HC Surrog/Guard Advoc?: Yes Problem Qualifiers (1) Dementia: Qualified Code: F03.91 - Dementia with behavioral disturbance, unspecified dementia type Ari Antonio MD Mar 11, 2016 13:08
[2016-03-11 20:15] VITALS: BP 175/85; PULSE 82; RESP 15; TEMP 98; O2SAT 96
[2016-03-11] MEDS: REMOVE OLD NICOTINE PATCH T-DERMAL SCH (21:00)
[2016-03-11] MEDS: QUEtiapine FUMARATE 100 MG TAB PO SCH (21:08)
[2016-03-11] MEDS: INSULIN DETEMIR 100 UNITS/ML VIAL SQ SCH (21:08)
[2016-03-11] MEDS: DONEPEZIL HCL 5 MG TAB PO SCH (21:08)
[2016-03-11 21:13] VITALS: BP 131/61; PULSE 73
[2016-03-11] MEDS: LORazepam 2 MG/ML VIAL IM PRN (22:29)
[2016-03-11] MEDS: OLANZapine IM 10 MG VIAL IM PRN (22:30)
[2016-03-12 06:14] VITALS: BP 101/56; PULSE 76; RESP 18; O2SAT 96
[2016-03-12] MEDS: INSULIN ASPART SUPPLEMENTAL SCALE SQ SCH ×4 (06:30→20:23)
[2016-03-12 07:35] LABS: BICARBONATE 25.7 MEQ/L (21.0-32.0); POTASSIUM 4.8 MEQ/L (3.5-5.1)
[2016-03-12] MEDS: NICOTINE 21 MG/24 HR PATCH T-DERMAL SCH (09:00)
[2016-03-12] MEDS: amLODIPine BESYLATE 5 MG TAB PO SCH (10:15)
[2016-03-12] MEDS: MEMANTINE HCL 10 MG TAB PO SCH (10:15)
[2016-03-12] MEDS: QUEtiapine FUMARATE 25 MG TAB PO SCH ×2 (11:30→17:28)
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
[2016-03-12] MEDS: OLANZapine IM 10 MG VIAL IM PRN (13:49)
[2016-03-12] MEDS: DONEPEZIL HCL 5 MG TAB PO SCH (20:13)
[2016-03-12] MEDS: QUEtiapine FUMARATE 100 MG TAB PO SCH (20:13)
[2016-03-12] MEDS: INSULIN DETEMIR 100 UNITS/ML VIAL SQ SCH (20:14)
[2016-03-12] MEDS: REMOVE OLD NICOTINE PATCH T-DERMAL SCH (20:24)
[2016-03-12 23:26] VITALS: BP 118/64; RESP 18; TEMP 97.9; O2SAT 97
[2016-03-12 23:41] LABS: C. DIFF EPI 027 PRESUMPTIVE NEGATIVE (NEGATIVE); C. DIFF TOXIN PCR NEGATIVE (NEGATIVE)
[2016-03-13] MEDS: LORazepam 2 MG/ML VIAL IM PRN (01:18)
[2016-03-13] MEDS: OLANZapine IM 10 MG VIAL IM PRN (01:18)
[2016-03-13] MEDS: INSULIN ASPART SUPPLEMENTAL SCALE SQ SCH ×4 (07:00→19:47)
[2016-03-13] MEDS: MEMANTINE HCL 10 MG TAB PO SCH (09:00)
[2016-03-13] MEDS: amLODIPine BESYLATE 5 MG TAB PO SCH (09:00)
[2016-03-13] MEDS: NICOTINE 21 MG/24 HR PATCH T-DERMAL SCH (09:00)
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
[2016-03-13 09:52] LABS: POTASSIUM 4.3 MEQ/L (3.5-5.1)
[2016-03-13] MEDS: QUEtiapine FUMARATE 25 MG TAB PO SCH ×2 (11:12→16:53)
--- NOTE | 2016-03-13 12:18 | HHI.PYPN ---
Subjective Remarks Patient seen in [place], retained by Compliance Representative Dealer Susana, to be guardian advocate. Patient continued with sundowning behaviors yesterday evening and night. Though he is calm today. He continues markedly confused disoriented in all 4 spheres. Will increase daily schedule Seroquel to 75 mg twice a day and increase at bedtime Seroquel to 150 mg Review of Systems Except as stated in HPI: all other systems reviewed are Neg Objective Alert: Yes (patient drowsy to alert) [place]: Person Mood: Calm Affect: Restricted Memory Intact: Comment (very poor) Hallucinations: Other (denies) Delusions: No Delusion Type: Paranoid Suicidal: Ideation (denies) Homicidal: Ideation (denies) Insight/Judgement Very poor Labs Test 03/12/16 03/13/16 21:30 09:15 Stool C. difficile Toxin (PCR) NEGATIVE Stl C. difficile Toxin PRESUMPTIVE Epiderm 027 NEGATIVE Sodium Level 139 MEQ/L Potassium Level 4.3 MEQ/L Chloride Level 106 MEQ/L Carbon Dioxide Level 25.0 MEQ/L Anion Gap 8 MEQ/L Blood Urea Nitrogen 51 MG/DL Creatinine 1.74 MG/DL Estimat Glomerular Filtration 38 ML/MIN Rate Random Glucose 129 MG/DL Calcium Level 9.3 MG/DL Vitals/IOs Vital Signs Date Time Temp Pulse Resp B/P Pulse Ox O2 Delivery O2 Flow Rate FiO2 03/12/16 23:26 97.9 18 118/64 97 03/12/16 06:14 76 Intake and Output 03/12/16 03/12/16 03/13/16 08:00 16:00 00:00 Intake Total 240 ml Balance 240 ml Assessment & Plan Problem List: (1) Dementia ICD Code: F03.90 Assessment & Plan Estimated LOS: days patient continues demented confused, with increased behavioral issues towards late afternoon into the evening. Also some irritability resistance when assisted with hygiene and ADLs Justification for Cont. Inpt. At this time the patient would significantly decompensated if placed on the lower level of care Discharge Planning To be determined Request HC Surrog/Guard Advoc?: Yes Problem Qualifiers (1) Dementia: Qualified Code: F03.91 - Dementia with behavioral disturbance, unspecified dementia type Ari Antonio MD Mar 13, 2016 12:18
[2016-03-13] MEDS ORDERED: PILL SPLITTER OTHER PRN (12:30)
[2016-03-13] MEDS: LORazepam 0.5 MG TAB PO PRN (19:48)
[2016-03-13] MEDS: DONEPEZIL HCL 5 MG TAB PO SCH (19:48)
[2016-03-13] MEDS: QUEtiapine FUMARATE 300 MG TAB PO SCH (19:48)
[2016-03-13] MEDS: INSULIN DETEMIR 100 UNITS/ML VIAL SQ SCH (19:49)
[2016-03-13 20:00] VITALS: BP 131/63; PULSE 70; RESP 16; TEMP 97; O2SAT 95
[2016-03-14 06:46] VITALS: BP 180/78; PULSE 73; RESP 18; TEMP 97.5; O2SAT 96
[2016-03-14] MEDS: INSULIN ASPART SUPPLEMENTAL SCALE SQ SCH ×4 (07:00→21:29)
[2016-03-14 07:51] LABS: BICARBONATE 24.3 MEQ/L (21.0-32.0); POTASSIUM 3.9 MEQ/L (3.5-5.1)
[2016-03-14] MEDS: MEMANTINE HCL 10 MG TAB PO SCH (10:33)
[2016-03-14] MEDS: amLODIPine BESYLATE 5 MG TAB PO SCH (10:33)
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
--- NOTE | 2016-03-14 12:37 | HHI.PYPN ---
Subjective Remarks Patient seen in day room with nurse Lorena, chart review, it appears patient had a somewhat quiet night last night. He is napping at this time though arousable to pleasantly confused. For now continue treatment Review of Systems Except as stated in HPI: all other systems reviewed are Neg Objective Alert: Yes (patient drowsy to alert) [place]: Person Mood: Calm Affect: Restricted Memory Intact: Comment (very poor) Hallucinations: Other (denies) Delusions: No Delusion Type: Paranoid Suicidal: Ideation (denies) Homicidal: Ideation (denies) Insight/Judgement Very poor Labs Test 03/14/16 06:29 Sodium Level 140 MEQ/L Potassium Level 3.9 MEQ/L Chloride Level 107 MEQ/L Carbon Dioxide Level 24.3 MEQ/L Anion Gap 9 MEQ/L Blood Urea Nitrogen 50 MG/DL Creatinine 1.75 MG/DL Estimat Glomerular Filtration 38 ML/MIN Rate Random Glucose 63 MG/DL Calcium Level 9.3 MG/DL Vitals/IOs Vital Signs Date Time Temp Pulse Resp B/P Pulse Ox O2 Delivery O2 Flow Rate FiO2 03/14/16 06:46 97.5 73 18 180/78 96 Intake and Output 03/13/16 03/13/16 03/14/16 08:00 16:00 00:00 Intake Total 360 ml 840 ml Balance 360 ml 840 ml Assessment & Plan Problem List: (1) Dementia ICD Code: F03.90 Assessment & Plan Estimated LOS: days patient continues demented that appears some of his "sundowning" behaviors have softened, for now continue treatment Justification for Cont. Inpt. At this time patient was significantly decompensated placed in a lower level of care Discharge Planning To be determined Request HC Surrog/Guard Advoc?: Yes Problem Qualifiers (1) Dementia: Qualified Code: F03.91 - Dementia with behavioral disturbance, unspecified dementia type Ari Antonio MD Mar 14, 2016 12:37
[2016-03-14] MEDS: QUEtiapine FUMARATE 25 MG TAB PO SCH ×3 (13:08→18:06)
[2016-03-14] MEDS: OLANZapine IM 10 MG VIAL IM PRN (13:26)
[2016-03-14] MEDS: LORazepam 2 MG/ML VIAL IM PRN (13:27)
[2016-03-14 19:23] VITALS: BP 117/63; PULSE 72; RESP 18; TEMP 97.6
[2016-03-14] MEDS: INSULIN DETEMIR 100 UNITS/ML VIAL SQ SCH (21:29)
[2016-03-14] MEDS: QUEtiapine FUMARATE 300 MG TAB PO SCH (21:30)
[2016-03-14] MEDS: DONEPEZIL HCL 5 MG TAB PO SCH (21:30)
[2016-03-15 06:15] VITALS: BP 154/70; PULSE 84; RESP 18; TEMP 96.9; O2SAT 98
[2016-03-15] MEDS: amLODIPine BESYLATE 5 MG TAB PO SCH (09:00)
[2016-03-15] MEDS: MEMANTINE HCL 10 MG TAB PO SCH (09:00)
[2016-03-15 09:02] LABS: BICARBONATE 25.7 MEQ/L (21.0-32.0); POTASSIUM 3.9 MEQ/L (3.5-5.1)
[2016-03-15] MEDS: INSULIN ASPART SUPPLEMENTAL SCALE SQ SCH ×3 (11:00→20:57)
[2016-03-15] MEDS: QUEtiapine FUMARATE 25 MG TAB PO SCH ×2 (12:00→18:28)
--- NOTE | 2016-03-15 12:12 | HHI.PR ---
Blank section for building Patient's creatinine stable between 1.5-1.7. Patient continues to refuse renal US for further workup. Blood glucose improved Will sign off. If patient's condition changes or further assistance is needed please reconsult. Recommend patient follow up with PCP after DC (Nanci Paniagua) Nanci Paniagua Mar 15, 2016 12:12 Arvind Sinha DO Mar 15, 2016 14:08
--- NOTE | 2016-03-15 13:48 | HHI.PYPN ---
Subjective Remarks Patient was seen and case discussed with nursing. Patient is nonverbal for this interview. His creatinine is elevated. Behaving well on the unit. Objective Alert: Yes (patient drowsy to alert) [place]: Person Mood: Calm Affect: Restricted Memory Intact: Comment (very poor) Hallucinations: Other (denies) Delusions: No Delusion Type: Paranoid Suicidal: Ideation (denies) Homicidal: Ideation (denies) Insight/Judgement Poor Labs Test 03/15/16 08:01 Sodium Level 140 MEQ/L Potassium Level 3.9 MEQ/L Chloride Level 105 MEQ/L Carbon Dioxide Level 25.7 MEQ/L Anion Gap 9 MEQ/L Blood Urea Nitrogen 47 MG/DL Creatinine 1.72 MG/DL Estimat Glomerular Filtration 38 ML/MIN Rate Random Glucose 106 MG/DL Calcium Level 9.7 MG/DL Vitals/IOs Vital Signs Date Time Temp Pulse Resp B/P Pulse Ox O2 Delivery O2 Flow Rate FiO2 03/15/16 06:15 96.9 84 18 154/70 98 Intake and Output 03/14/16 03/14/16 03/15/16 08:00 16:00 00:00 Intake Total 240 ml 0 ml Balance 240 ml 0 ml Assessment & Plan Problem List: (1) Dementia ICD Code: F03.90 Assessment & Plan Encourage fluids, consult medicine, medicine will consider treatment for rash Justification for Cont. Inpt. Patient would decompensate a less restrictive setting Request HC Surrog/Guard Advoc?: Yes Problem Qualifiers (1) Dementia: Qualified Code: F03.91 - Dementia with behavioral disturbance, unspecified dementia type Aman Casillas DO Mar 15, 2016 13:48
[2016-03-15] MEDS ORDERED: SODIUM CHLOR 0.9% 1000 ML INJ 1,000 ML IV SCH (15:15)
--- NOTE | 2016-03-15 16:23 | HHI.PR ---
Subjective Remarks Reconsulted for acute kidney injury as well as possible psoriasis lesions on finger nails. Patient is an 80 year male with a history of Alzheimer's dementia who was brought to the hospital under kramer act due to aggressive behavior towards his . Although this patient's baseline creatinine is not known, recent labs indicate his baseline is likely 1.2 - 1.3 range. He does not drink enough water per RN. Patient's and son present at the time of this interview. Patient's fingernail condition is not new, is aware of possible fungal nail. Objective Vitals Vital Signs Date Time Temp Pulse Resp B/P Pulse Ox O2 Delivery O2 Flow Rate FiO2 03/15/16 06:15 96.9 84 18 154/70 98 03/14/16 19:23 97.6 72 18 117/63 I/O 03/14/16 03/14/16 03/14/16 03/15/16 03/15/16 03/15/16 07:00 15:00 23:00 07:00 15:00 23:00 Intake Total 240 ml 0 ml Balance 240 ml 0 ml Intake Oral 240 ml 0 ml # Voids 2 1 2 3 # Bowel Movements 1 Result Diagram: 03/15/16 0801 Objective Remarks GENERAL: Alert, NAD. SKIN: Warm and dry. Fingernails are yellow and damaged diffusely. HEAD: Normocephalic. EYES: No scleral icterus. No injection or drainage. NECK: Supple, trachea midline. No JVD or lymphadenopathy. CARDIOVASCULAR: Regular rate and rhythm without murmurs, gallops, or rubs. RESPIRATORY: Breath sounds equal bilaterally. No accessory muscle use. GASTROINTESTINAL: Abdomen soft, non-tender, nondistended. MUSCULOSKELETAL: No cyanosis, or edema. BACK: Nontender without obvious deformity. No CVA tenderness. Procedures None. A/P Problem List: (1) Dementia ICD Code: F03.90 Status: Acute (2) DM (diabetes mellitus) ICD Code: E11.9 Status: Acute (3) HTN (hypertension) ICD Code: I10 Status: Acute (4) Acute kidney injury ICD Code: N17.9 Status: Acute Assessment and Plan Mr. Fields is an 80 year old male with a history of Alzheimer's dementia who was brought to the hospital under kramer act due to aggressive behavior towards his . - Dementia with Behavioral Disturbance: presented under Kramer Act for aggressive behavior towards his . Management per psychiatry. - HTN - continue Norvasc 5 mg daily, - Diabetes Mellitus 2 - hemoglobin A1c 8.2 - Continue Levemir 14 units and Sliding scale insulin. - Acute kidney injury - Probably has baseline CKD with creatinine around 1.2 - 1.3 - Currently Creatinine is around 1.7. This is likely due to poor oral intake. - Encouraged patient to drink more fluid. Patient's family will also encourage patient. - No need to transfer patient to medical or med-psych floor. - Will monitor BMP. - Patient has refused renal US before. - Probable dystrophic onychomycosis - Would avoid oral anti-fungal at this point. His nail lesions are not new. - If desired by family members, topical antifungal (Efinaconazole 10%) can be used for 48 weeks. Thank you for the consult. We will continue to follow this patient with you. Problem Qualifiers (1) Dementia: Qualified Code: F03.91 - Dementia with behavioral disturbance, unspecified dementia type Arvind Sinha DO Mar 15, 2016 16:23
[2016-03-15 20:15] VITALS: BP 152/68; PULSE 63; RESP 18; TEMP 96.9; O2SAT 96
[2016-03-15] MEDS: DONEPEZIL HCL 5 MG TAB PO SCH (20:55)
[2016-03-15] MEDS: OLANZapine IM 10 MG VIAL IM PRN (20:55)
[2016-03-15] MEDS: QUEtiapine FUMARATE 300 MG TAB PO SCH (20:56)
[2016-03-15] MEDS: INSULIN DETEMIR 100 UNITS/ML VIAL SQ SCH (20:57)
[2016-03-16] MEDS: INSULIN ASPART SUPPLEMENTAL SCALE SQ SCH ×4 (06:05→20:14)
[2016-03-16 06:24] VITALS: BP 135/73; PULSE 65; RESP 18; TEMP 97.6; O2SAT 100
[2016-03-16] MEDS: MEMANTINE HCL 10 MG TAB PO SCH (09:00)
[2016-03-16] MEDS: amLODIPine BESYLATE 5 MG TAB PO SCH (09:00)
[2016-03-16] MEDS: OLANZapine IM 10 MG VIAL IM PRN ×2 (09:20→16:22)
[2016-03-16] MEDS: QUEtiapine FUMARATE 25 MG TAB PO SCH ×2 (12:50→18:00)
--- NOTE | 2016-03-16 13:56 | HHI.PYPN ---
Subjective Remarks Patient was seen and case discussed with nursing. Medicine evaluated the patient and they decided not to transfer him to the medical floor. Creatinine remains elevated. Nursing has difficulty administering fluids to patient. Patient remains nonverbal during the interview Objective Alert: Yes (patient drowsy to alert) [place]: Person Mood: Calm Affect: Restricted Memory Intact: Comment (very poor) Hallucinations: Other (denies) Delusions: No Delusion Type: Paranoid Suicidal: Ideation (denies) Homicidal: Ideation (denies) Insight/Judgement Poor Vitals/IOs Vital Signs Date Time Temp Pulse Resp B/P Pulse Ox O2 Delivery O2 Flow Rate FiO2 03/16/16 06:24 97.6 65 18 135/73 100 Intake and Output 03/15/16 03/15/16 03/16/16 08:00 16:00 00:00 Intake Total 1200 ml Balance 1200 ml Assessment & Plan Problem List: (1) Dementia ICD Code: F03.90 Assessment & Plan We will contact medicine and consider transferring patient to the psych/ medicine unit for IV fluids. Justification for Cont. Inpt. Patient will decompensate outside of a less restrictive setting Request HC Surrog/Guard Advoc?: Yes Problem Qualifiers (1) Dementia: Qualified Code: F03.91 - Dementia with behavioral disturbance, unspecified dementia type Aman Casillas DO Mar 16, 2016 13:56
[2016-03-16 19:51] VITALS: BP 133/62; PULSE 73; RESP 18; TEMP 97.3; O2SAT 97
[2016-03-16] MEDS: DONEPEZIL HCL 5 MG TAB PO SCH (20:13)
[2016-03-16] MEDS: QUEtiapine FUMARATE 300 MG TAB PO SCH (20:13)
[2016-03-16] MEDS: INSULIN DETEMIR 100 UNITS/ML VIAL SQ SCH (20:14)
[2016-03-17 06:13] VITALS: BP 139/63; PULSE 71; RESP 18; TEMP 96; O2SAT 90
[2016-03-17] MEDS: INSULIN ASPART SUPPLEMENTAL SCALE SQ SCH ×4 (06:46→21:00)
[2016-03-17 07:45] LABS: BICARBONATE 26.1 MEQ/L (21.0-32.0); POTASSIUM 4.1 MEQ/L (3.5-5.1)
[2016-03-17] MEDS: MEMANTINE HCL 10 MG TAB PO SCH (09:48)
[2016-03-17] MEDS: amLODIPine BESYLATE 5 MG TAB PO SCH (09:48)
--- NOTE | 2016-03-17 11:29 | HHI.PR ---
Subjective Remarks Follow-up acute kidney injury on chronic kidney disease as well as possible psoriasis lesions on finger nails. Patient is an 80 year male with a history of Alzheimer's dementia who was brought to the hospital under kramer act due to aggressive behavior towards his . Although this patient's baseline creatinine is not known, recent labs indicate his baseline is likely 1.2 - 1.3 range. Patient has had periods of sleeping through meals and missing nutrition. Patient's fingernail condition is not new, is aware of possible fungal nail. Patient seen today more alert than he's been in the past. Coming out of the shower with assistance of attacks. Appears to be in no acute distress although continues to be confused. Objective Vitals Vital Signs Date Time Temp Pulse Resp B/P Pulse Ox O2 Delivery O2 Flow Rate FiO2 03/17/16 06:13 96.0 71 18 139/63 90 03/16/16 19:51 97.3 73 18 133/62 97 I/O 03/16/16 03/16/16 03/16/16 03/17/16 03/17/16 03/17/16 07:00 15:00 23:00 07:00 15:00 23:00 Intake Total 720 ml 240 ml 120 ml Balance 720 ml 240 ml 120 ml Intake Oral 720 ml 240 ml 120 ml # Voids 2 1 Result Diagram: 03/17/16 0639 Objective Remarks GENERAL: This is a well-nourished, well-developed patient, in no apparent distress. SKIN: No rashes, ecchymoses or lesions. Cool and dry. HEAD: Atraumatic. Normocephalic. No temporal or scalp tenderness. EYES: Extraocular motions intact. No scleral icterus. No injection or drainage. CARDIOVASCULAR: Regular rate and rhythm without murmurs, gallops, or rubs. RESPIRATORY: Clear to auscultation. Breath sounds equal bilaterally. No wheezes , rales, or rhonchi. GASTROINTESTINAL: Abdomen soft, non-tender, nondistended. No hepato-splenomegaly , or palpable masses. No guarding. MUSCULOSKELETAL: Extremities without clubbing, cyanosis, or edema. No joint tenderness, effusion, or edema noted. No calf tenderness. Negative Homans sign bilaterally. NEUROLOGICAL: Oriented to self. Procedures None. A/P Problem List: (1) Dementia ICD Code: F03.90 Status: Acute (2) DM (diabetes mellitus) ICD Code: E11.9 Status: Acute (3) HTN (hypertension) ICD Code: I10 Status: Acute (4) Acute kidney injury ICD Code: N17.9 Status: Acute Assessment and Plan 80-year-old male with: Dementia with Behavioral Disturbance: presented under Kramer Act for aggressive behavior towards his . Likely worsening dementia compounded by dehydration with JOSE and hypertensive urgency. No SI/HI. Continue patient's Namenda/ Aricept. Consult PT/OT. Consulted psychiatry, recommended admission to inpatient psychiatry, started on Seroquel. Haldol IM prn. Restraints prn. HTN - continue Norvasc 5 mg daily, - Monitor BP trend Diabetes Mellitus 2 - hypoglycemia this a.m. -hemoglobin A1c 8.2 -Decrease Levemir to 10 units QHS.- Patient's oral intake seems to be erratic therefore difficult to maintain - Insulin sliding scale. max nighttime dose of insulin 4 units. - Monitor Accu-Cheks. Monitor for hypoglycemia. Chronic kidney disease - was in acute kidney injury during hospital admission. Creatinine remains elevated - Continue to encourage PO fluid intake -Renal ultrasound has been canceled 2 patient has been uncooperative and refusing Probable dystrophic onychomycosis - Would avoid oral anti-fungal at this point. His nail lesions are not new. Code Status Full code Discussed Condition With Patient, nursing and patient Written by Nanci Paniagua, acting as scribe for Dr. Muniz on 03/17/16 at 11:29. The documentation accurately reflects the work performed [id number] by me on at 1129 Problem Qualifiers (1) Dementia: Qualified Code: F03.91 - Dementia with behavioral disturbance, unspecified dementia type Nanci Paniagua Mar 17, 2016 11:29 Heriberto Muniz MD Mar 17, 2016 14:47
[2016-03-17] MEDS: QUEtiapine FUMARATE 25 MG TAB PO SCH ×2 (12:00→17:13)
--- NOTE | 2016-03-17 17:17 | HHI.PYPN ---
Subjective Remarks Patient discussed with treatment team patient's and patient's son. Is much discussion about discharge and placement. Both the son and his son in [place] are working with arrangements for transfer of the patient to that. The facility there in a safe organized manner I'll also Hollywood that the closing up the parents apartment here and relocating their mother to that area. Patient continues somewhat labile and irritable though compliant with medications. For now continue treatment no change Review of Systems Except as stated in HPI: all other systems reviewed are Neg Objective Alert: Yes (patient drowsy to alert) [place]: Person Mood: Calm Affect: Restricted Memory Intact: Comment (very poor) Hallucinations: Other (denies) Delusions: No Delusion Type: Paranoid Suicidal: Ideation (denies) Homicidal: Ideation (denies) Insight/Judgement Very poor Labs Test 03/17/16 06:39 Sodium Level 141 MEQ/L Potassium Level 4.1 MEQ/L Chloride Level 106 MEQ/L Carbon Dioxide Level 26.1 MEQ/L Anion Gap 9 MEQ/L Blood Urea Nitrogen 50 MG/DL Creatinine 1.82 MG/DL Estimat Glomerular Filtration 36 ML/MIN Rate Random Glucose 58 MG/DL Calcium Level 9.2 MG/DL Vitals/IOs Vital Signs Date Time Temp Pulse Resp B/P Pulse Ox O2 Delivery O2 Flow Rate FiO2 03/17/16 06:13 96.0 71 18 139/63 90 Intake and Output 03/16/16 03/16/16 03/17/16 08:00 16:00 00:00 Intake Total 720 ml 360 ml Balance 720 ml 360 ml Assessment & Plan Problem List: (1) Dementia ICD Code: F03.90 Assessment & Plan Estimated LOS: days patient continues demented confused at times somewhat irritable labile. Justification for Cont. Inpt. At this time patient would significantly decompensated placed in a lower level of care Discharge Planning To be determined Request HC Surrog/Guard Advoc?: Yes Problem Qualifiers (1) Dementia: Qualified Code: F03.91 - Dementia with behavioral disturbance, unspecified dementia type Ari Antonio MD Mar 17, 2016 17:17
[2016-03-17 19:48] VITALS: BP 134/60; PULSE 69; O2SAT 95
[2016-03-17] MEDS: DONEPEZIL HCL 5 MG TAB PO SCH (21:44)
[2016-03-17] MEDS: QUEtiapine FUMARATE 300 MG TAB PO SCH (21:44)
[2016-03-17] MEDS: INSULIN DETEMIR 100 UNITS/ML VIAL SQ SCH (21:45)
[2016-03-18] MEDS: LORazepam 0.5 MG TAB PO PRN (01:00)
[2016-03-18 05:41] VITALS: BP 144/67; PULSE 55; RESP 15; TEMP 98.3; O2SAT 93
[2016-03-18] MEDS: INSULIN ASPART SUPPLEMENTAL SCALE SQ SCH ×4 (06:17→21:03)
[2016-03-18] MEDS: QUEtiapine FUMARATE 25 MG TAB PO SCH ×2 (12:33→17:14)
[2016-03-18] MEDS: MEMANTINE HCL 10 MG TAB PO SCH (12:33)
[2016-03-18] MEDS: amLODIPine BESYLATE 5 MG TAB PO SCH (12:33)
--- NOTE | 2016-03-18 13:25 | HHI.PYPN ---
Subjective Remarks Patient seen in day room with nurse Karen and patient's , patient initially was dosing with his sitting beside him, however lady did wake up and been seen by me was sitting in a Lavern chair a week alert calm but diffusely confused and appeared that he was not able to recognize either myself or his . However we have confirmed that there is a bed available at the facility, [facility], in [facility]. It appears that a staff from there [facility] located locally will be in 2 assess the patient today patient compliant with his medications Review of Systems Except as stated in HPI: all other systems reviewed are Neg Objective Alert: Yes (patient drowsy to alert) [place]: Person Mood: Calm Affect: Restricted Memory Intact: Comment (very poor) Hallucinations: Other (denies) Delusions: No Delusion Type: Paranoid Suicidal: Ideation (denies) Homicidal: Ideation (denies) Insight/Judgement Very poor Vitals/IOs Vital Signs Date Time Temp Pulse Resp B/P Pulse Ox O2 Delivery O2 Flow Rate FiO2 03/18/16 05:41 98.3 55 15 144/67 93 Intake and Output 03/17/16 03/17/16 03/18/16 08:00 16:00 00:00 Intake Total 0 ml 360 ml 720 ml Balance 0 ml 360 ml 720 ml Assessment & Plan Problem List: (1) Dementia ICD Code: F03.90 Assessment & Plan Estimated LOS: days patient continues demented markedly confused, though quite at the present time visiting with his staff his motor the patient is showing some sundowning late afternoon early evening with increased restlessness. For now continue treatment no change. Counselor has a verified that there is a bed available at the [facility], and that a staff member from there [facility] locally will begin today to assess patient Justification for Cont. Inpt. At this time patient would decompensate if placed in a lower level of care Discharge Planning To be determined Request HC Surrog/Guard Advoc?: Yes Problem Qualifiers (1) Dementia: Qualified Code: F03.91 - Dementia with behavioral disturbance, unspecified dementia type Ari Antonio MD Mar 18, 2016 13:25
[2016-03-18 19:00] VITALS: BP 147/63; PULSE 50; RESP 15; TEMP 98.2; O2SAT 97
[2016-03-18] MEDS: DONEPEZIL HCL 5 MG TAB PO SCH (21:00)
[2016-03-18] MEDS: QUEtiapine FUMARATE 300 MG TAB PO SCH ×2 (21:04→22:29)
[2016-03-18] MEDS: INSULIN DETEMIR 100 UNITS/ML VIAL SQ SCH (21:04)
[2016-03-19] MEDS: INSULIN ASPART SUPPLEMENTAL SCALE SQ SCH ×4 (06:52→21:16)
[2016-03-19] MEDS: amLODIPine BESYLATE 5 MG TAB PO SCH (09:00)
[2016-03-19] MEDS: MEMANTINE HCL 10 MG TAB PO SCH (09:00)
[2016-03-19] MEDS: QUEtiapine FUMARATE 25 MG TAB PO SCH ×2 (11:27→17:08)
--- NOTE | 2016-03-19 11:51 | HHI.PYPN ---
Subjective Remarks Patient seen in day room nurse Iraida and family practice resident Faye, he continues confused those pleasant with us at the present time. However review of nurse's notes show he was up through much of the night last night a did refuses nighttime meds for now continue to observe and continue treatment no change Review of Systems Except as stated in HPI: all other systems reviewed are Neg Objective Alert: Yes (patient drowsy to alert) [place]: Person Mood: Calm Affect: Restricted Memory Intact: Comment (very poor) Hallucinations: Other (denies) Delusions: No Delusion Type: Paranoid Suicidal: Ideation (denies) Homicidal: Ideation (denies) Insight/Judgement Very poor Vitals/IOs Vital Signs Date Time Temp Pulse Resp B/P Pulse Ox O2 Delivery O2 Flow Rate FiO2 03/18/16 19:00 98.2 50 15 147/63 97 Intake and Output 03/18/16 03/18/16 03/19/16 08:00 16:00 00:00 Intake Total 120 ml 240 ml Balance 120 ml 240 ml Assessment & Plan Problem List: (1) Dementia ICD Code: F03.90 Assessment & Plan Estimated LOS: days patient continues confused and demented, calm at the present time, but appears short some own late evening we'll continue to observe Justification for Cont. Inpt. At this time patient would significantly decompensate placed in a lower level of care Discharge Planning To be determined Request HC Surrog/Guard Advoc?: Yes Problem Qualifiers (1) Dementia: Qualified Code: F03.91 - Dementia with behavioral disturbance, unspecified dementia type Ari Antonio MD Mar 19, 2016 11:51
--- NOTE | 2016-03-19 14:23 | HHI.PR ---
Subjective Remarks Follow-up visit JOSE on CKD, lethargy, poor by mouth intake. Patient seen today. As per staff, she has been eating and drinking well 100% of meals. More awake than usual but gets tired in the afternoon and takes his naps. Patient with history of Alzheimer's dementia. Continues to have confusion answer some questions. Denies pain and discomfort. Denies SOB/ dyspnea. Denies chest pain, palpitations, headaches, dizziness. Denies fevers, chills, n/ v/d. Objective Vitals Vital Signs Date Time Temp Pulse Resp B/P Pulse Ox O2 Delivery O2 Flow Rate FiO2 03/18/16 19:00 98.2 50 15 147/63 97 I/O 03/18/16 03/18/16 03/18/16 03/19/16 03/19/16 03/19/16 07:00 15:00 23:00 07:00 15:00 23:00 Intake Total 360 ml 0 ml 240 ml 240 ml Balance 360 ml 0 ml 240 ml 240 ml Intake Oral 360 ml 0 ml 240 ml 240 ml # Voids 2 2 2 Result Diagram: 03/17/16 0639 Objective Remarks GENERAL: This is a well-nourished, well-developed patient, in no apparent distress. SKIN: No rashes, ecchymoses or lesions. Cool and dry. HEAD: Atraumatic. Normocephalic. No temporal or scalp tenderness. EYES: Extraocular motions intact. No scleral icterus. No injection or drainage. CARDIOVASCULAR: Regular rate and rhythm without murmurs, gallops, or rubs. RESPIRATORY: Clear to auscultation. Breath sounds equal bilaterally. No wheezes , rales, or rhonchi. GASTROINTESTINAL: Abdomen soft, non-tender, nondistended. No hepato-splenomegaly , or palpable masses. No guarding. MUSCULOSKELETAL: Extremities without clubbing, cyanosis, or edema. No joint tenderness, effusion, or edema noted. No calf tenderness. Negative Homans sign bilaterally. NEUROLOGICAL: Patient is awake/alert during exam. Confuse. Oriented to self. Moves all extremities weakly. Procedures None. A/P Problem List: (1) Dementia ICD Code: F03.90 Status: Acute (2) DM (diabetes mellitus) ICD Code: E11.9 Status: Acute (3) HTN (hypertension) ICD Code: I10 Status: Acute (4) Acute kidney injury ICD Code: N17.9 Status: Acute Assessment and Plan 80-year-old male with: Dementia with Behavioral Disturbance: presented under Kramer Act for aggressive behavior towards his . Likely worsening dementia compounded by dehydration with JOSE and hypertensive urgency. No SI/HI. Continue patient's Namenda/ Aricept. Consult PT/OT. Consulted psychiatry, recommended admission to inpatient psychiatry, started on Seroquel. Haldol IM prn. Restraints prn. HTN - continue Norvasc 5 mg daily, - Monitor BP trend Diabetes Mellitus 2 - hypoglycemia this a.m. -hemoglobin A1c 8.2 -Decrease Levemir to 10 units QHS.- Patient's oral intake seems to be erratic therefore difficult to maintain - Insulin sliding scale. max nighttime dose of insulin 4 units. - Monitor Accu-Cheks. Monitor for hypoglycemia. Chronic kidney disease - was in acute kidney injury during hospital admission. Creatinine remains elevated - Continue to encourage PO fluid intake - Renal ultrasound has been canceled 2 patient has been uncooperative and refusing - Creatinine continues to be elevated. May need IV fluids for hydration if persistent, however, family made note previously that they don't want to proceed with aggressive treatment for patient. Might benefit from Palliative care/ Hospice. Will consult Palliative Care. Probable dystrophic onychomycosis - Would avoid oral anti-fungal at this point. His nail lesions are not new. Code Status Full code Discussed Condition with Patient, nursing Written by Abel Walker, acting as scribe for Dr. Muniz on 03/19/16 at 14:12. The documentation accurately reflects the work performed [id number] by me on at 16:19. Problem Qualifiers (1) Dementia: Qualified Code: F03.91 - Dementia with behavioral disturbance, unspecified dementia type Abel Calero Mar 19, 2016 14:23 Heriberto Muniz MD Mar 19, 2016 16:19
[2016-03-19 19:25] VITALS: BP 136/65; PULSE 56; RESP 16; TEMP 97.8; O2SAT 98
[2016-03-19 21:00] VITALS: BP 131/70; PULSE 62; RESP 17; O2SAT 99
[2016-03-19] MEDS: DONEPEZIL HCL 5 MG TAB PO SCH (21:00)
[2016-03-19] MEDS: INSULIN DETEMIR 100 UNITS/ML VIAL SQ SCH (21:16)
[2016-03-19 22:00] VITALS: BP 126/61; PULSE 63; RESP 17; O2SAT 96
[2016-03-20 02:00] VITALS: BP 129/63; PULSE 56; RESP 16; O2SAT 96
[2016-03-20 05:42] VITALS: BP 138/63; PULSE 54; RESP 16
[2016-03-20] MEDS: INSULIN ASPART SUPPLEMENTAL SCALE SQ SCH ×4 (06:05→20:36)
[2016-03-20 06:19] VITALS: BP 138/63; PULSE 54; RESP 16; O2SAT 97
[2016-03-20] MEDS: amLODIPine BESYLATE 5 MG TAB PO SCH (09:00)
[2016-03-20] MEDS: MEMANTINE HCL 10 MG TAB PO SCH (09:00)
[2016-03-20] MEDS: QUEtiapine FUMARATE 25 MG TAB PO SCH ×2 (11:24→17:23)
--- NOTE | 2016-03-20 12:44 | HHI.PYPN ---
Subjective Remarks Patient seen in day room with nurse Iraida, chart reviewed, patient continues confused and disorganized patient drowsing in a Lavern chair, no arousable especially with questions by the nurse. This time no behavioral problems, compliant with his medications Review of Systems Except as stated in HPI: all other systems reviewed are Neg Objective Alert: Yes (patient drowsy to alert) [place]: Person Mood: Calm Affect: Restricted Memory Intact: Comment (very poor) Hallucinations: Other (denies) Delusions: No Delusion Type: Paranoid Suicidal: Ideation (denies) Homicidal: Ideation (denies) Insight/Judgement Very poor Vitals/IOs Vital Signs Date Time Temp Pulse Resp B/P Pulse Ox O2 Delivery O2 Flow Rate FiO2 03/20/16 06:19 54 16 138/63 97 03/19/16 19:25 97.8 Intake and Output 03/19/16 03/19/16 03/20/16 08:00 16:00 00:00 Intake Total 240 ml 1230 ml Balance 240 ml 1230 ml Assessment & Plan Problem List: (1) Dementia ICD Code: F03.90 Assessment & Plan Estimated LOS: days patient continues severely demented needing constant assistance. Compliant medications. For now continue treatment Justification for Cont. Inpt. At this time patient will decompensate if placed in a lower level of care Discharge Planning To be determined Request HC Surrog/Guard Advoc?: Yes Problem Qualifiers (1) Dementia: Qualified Code: F03.91 - Dementia with behavioral disturbance, unspecified dementia type Ari Antonio MD Mar 20, 2016 12:44
--- NOTE | 2016-03-20 16:01 | HHI.PR ---
Addendum To [facility] Progress Not Reason for addendum: Additonal documentation (Patient's creatinine stable between 1.5-1.8. Blood glucose within range. Has been eating and drinking as per staff. Palliative care consulted. Stable from hospitalist standpoint. We will sign off for now. Please reconsult us as needed.) (Abel Calero) Abel Calero Mar 20, 2016 16:01 Heriberto Muniz MD Mar 20, 2016 16:51
--- NOTE | 2016-03-20 16:31 | HHI.PR ---
Subjective Remarks Follow-up diabetes mellitus. Fingersticks reviewed. Patient tolerating by mouth. Discussed with RN Objective Vitals Vital Signs Date Time Temp Pulse Resp B/P Pulse Ox O2 Delivery O2 Flow Rate FiO2 03/20/16 06:19 54 16 138/63 97 03/20/16 05:42 54 16 138/63 03/20/16 02:00 56 16 129/63 96 03/19/16 22:00 63 17 126/61 96 03/19/16 21:00 62 17 131/70 99 03/19/16 19:25 97.8 56 16 136/65 98 I/O 03/19/16 03/19/16 03/19/16 03/20/16 03/20/16 03/20/16 07:00 15:00 23:00 07:00 15:00 23:00 Intake Total 240 ml 1230 ml 120 ml Balance 240 ml 1230 ml 120 ml Intake Oral 240 ml 1230 ml 120 ml # Voids 2 3 2 # Bowel Movements 1 Result Diagram: 03/17/16 0639 Objective Remarks GENERAL: This is a well-nourished, well-developed patient, in no apparent distress. SKIN: No rashes, ecchymoses or lesions. Cool and dry. HEAD: Atraumatic. Normocephalic. No temporal or scalp tenderness. EYES: Extraocular motions intact. No scleral icterus. No injection or drainage. CARDIOVASCULAR: Regular rate and rhythm without murmurs, gallops, or rubs. RESPIRATORY: Clear to auscultation. Breath sounds equal bilaterally. No wheezes , rales, or rhonchi. GASTROINTESTINAL: Abdomen soft, non-tender, nondistended. No guarding. MUSCULOSKELETAL: Extremities without clubbing, cyanosis, or edema. No joint tenderness, effusion, or edema noted. No calf tenderness. Negative Homans sign bilaterally. NEUROLOGICAL: Patient is awake/alert during exam. Confuse. Oriented to self. Moves all extremities weakly. Procedures None. A/P Problem List: (1) Dementia ICD Code: F03.90 Status: Acute (2) DM (diabetes mellitus) ICD Code: E11.9 Status: Acute (3) HTN (hypertension) ICD Code: I10 Status: Acute (4) Acute kidney injury ICD Code: N17.9 Status: Acute Assessment and Plan 80-year-old male with: Dementia with Behavioral Disturbance: presented under Kramer Act for aggressive behavior towards his . Likely worsening dementia compounded by dehydration with JOSE and hypertensive urgency. No SI/HI. Continue patient's Namenda/ Aricept. Consult PT/OT. Consulted psychiatry, recommended admission to inpatient psychiatry, started on Seroquel. Haldol IM prn. Restraints prn. HTN - continue Norvasc 5 mg daily, - Monitor BP trend Diabetes Mellitus 2 - stable -hemoglobin A1c 8.2 -Continue Levemir to 10 units QHS.- - Insulin sliding scale. max nighttime dose of insulin 2 units. - Monitor Accu-Cheks. Monitor for hypoglycemia. Chronic kidney disease - was in acute kidney injury during hospital admission. Creatinine remains elevated - Continue to encourage PO fluid intake - Renal ultrasound has been canceled 2 patient has been uncooperative and refusing - Creatinine continues to be elevated. May need IV fluids for hydration if persistent, however, family made note previously that they don't want to proceed with aggressive treatment for patient. Might benefit from Palliative care/ Hospice. Will consult Palliative Care. Probable dystrophic onychomycosis - Would avoid oral anti-fungal at this point. His nail lesions are not new. Code Status Full code Discussed Condition with Patient, nursing Discharge Planning Patient medically stable. We'll sign off. Problem Qualifiers (1) Dementia: Qualified Code: F03.91 - Dementia with behavioral disturbance, unspecified dementia type Heriberto Muniz MD Mar 20, 2016 16:31
--- NOTE | 2016-03-20 16:38 | PD.CONS ---
Consult Service Palliative Care Consult Requested By Dr. Heriberto Muniz MD. Primary Care Physician Gael Gandhi MD Reason for Consultation a. To assist with evaluation and management of symptoms including: debility. b. To assist medical decision maker(s) with: better understanding of current medical conditions; weighing benefits/burdens of medical treatment options; making medical treatment decisions. HPI History of Present Illness Mr. Fields is an 80 y/o male with a medical history significant for Alzheimer's dementia with behavioral disturbances, HTN, diabetes mellitus type 2 and CKD. Patient presented to the ED on 03/08/16 secondary to aggressive behavior towards his , patient was placed under Kramer Act and evaluated by psychiatry. Patient seen in psychiatry floor, he us unable to provide medical history secondary to clinical condition/dementia. Medical history obtained from medical records. It was reported that prior to presented to the ED, patient became very aggressive towards his . Upon immediate presentation, patient was noted to be severely hypertensive with SBP in the 220s and was in the observation unit secondary to hypertensive crisis. As per medical records, patient has been suffering with dementia for the last 3- 4 years, with worsening cognitive and functional decline in the past 6 months. It appears that he was residing at home with his , who has been his primary caregiver. At time of admission, reports that she was no longer able to care for him and required some professional assistance. Patient was admitted to the psychiatric floor for further evaluation and management. While in the inpatient psychiatric unit, patient continued severely demented requiring constant supervision and assistance. As per medical records, family verbalize previously that they do not want to proceed with aggressive treatment for patient and requested a no CODE STATUS. Palliative care has been consulted for assistance and clarifications of goals of care in the setting of patient's progressive cognitive and physical decline and poor prognosis for an improved quality of life or long-term survival. Telephone call to patient's Paula Fields, left message on voicemail. Patient seen in psychiatric floor, he was sitting up eating geriatric chair in no acute distress. Patient resting with eyes closed, not arousable to tactile or verbal stimuli. Patient appears calm. A febrile, stable blood pressure. Last laboratory 03/17/16, NA 141, K4.1, BUN/creatinine 50/1.82. Head CT on negative for acute process. Chest x-ray 03/05/16 negative for acute disease. Telephone conversation the patient's Paula Fields. Reviewed the role of palliative care and advance illness in regards to symptom management as well as support surrounding goals of care and advance care planning. Pt's tells me that patient is to be transferred to assisted facility in [place], [place] on 04/05/16. She reports that medical transport has been already set up. Reviewed progression of dementia as a terminal condition, to include continuation of cognitive and physical decline and dysphagia. Patient's not receptive of this conversation. However she tells me that patient is a no code. Discussed the future role of hospice services should patient's symptoms burden continues to increase or continued decline. tells me that patient is not ready for hospice at this time. . Function/Cognitive Trajectory Progressive cognitive and physical decline over the past 4 year secondary to dementia. Independently living with is the primary caregiver. Patient requires full assistance with all ADLs. . Review of Systems ROS Limitations: Clinical Condition, Altered Mental Status Constitutional: COMPLAINS OF: Change in appetite Respiratory: DENIES: Cough Gastrointestinal: DENIES: Abdominal pain, Diarrhea, Nausea, Vomiting Integumentary: COMPLAINS OF: Pruritus Hematologic/Lymphatics: COMPLAINS OF: Bruising Immunologic/Allergic: COMPLAINS OF: Eczema Psychiatric: COMPLAINS OF: Anxiety, Confusion, Hallucinations, Agitation Other ROS: Limited review of systems secondary to patient's clinical condition, dementia. Past Family Social History Coded Allergies: No Known Allergies (Unverified , 03/05/16) Past Medical History Alzheimer's dementia, with behavioral disturbances Hypertension Diabetes mellitus type 2 Chronic kidney disease History of colon cancer . Past Surgical History Partial colectomy Recent lipoma resection at left upper chest . Reported Medications Amlodipine 5 mg by mouth daily Seroquel 25 mg by mouth twice a day Donepezil 5 mg by mouth at bedtime Namenda 10 mg by mouth twice a day . Current Medications Medications (Trade) Dose Ordered Sig/Rose Mary Route Start Time Stop Time Status Last Admin (Ativan) 0.5 mg Q8H PRN PO 03/08/16 15:30 03/18/16 01:00 (Tylenol) 650 mg Q4H PRN PO 03/08/16 15:45 (D50w (Vial) Inj) 25 ml UNSCH PRN IV PUSH 03/08/16 18:00 (Glucagon Inj) 1 mg UNSCH PRN OTHER 03/08/16 18:00 (Norvasc) 5 mg DAILY PO 03/09/16 11:00 03/20/16 09:00 (Catapres) 0.1 mg Q6H PRN PO 03/09/16 11:00 (Apresoline) 10 mg Q6HR PRN PO 03/09/16 11:00 (Aricept) 5 mg HS PO 03/09/16 21:00 03/19/16 21:00 (Namenda) 10 mg DAILY PO 03/09/16 11:00 03/20/16 09:00 (ZyPREXA INJ) 5 mg Q6H PRN IM 03/11/16 18:30 03/16/16 16:22 (Ativan Inj) 1 mg Q6H PRN IM 03/11/16 18:30 03/14/16 13:27 (SEROquel) 150 mg HS PO 03/13/16 21:00 03/18/16 21:04 (SEROquel) 75 mg DAILY@12,18 PO 03/13/16 18:00 03/20/16 11:24 (Pill Splitter) 1 ea UNSCH PRN OTHER 03/13/16 12:30 (Levemir Inj) 10 units HS SQ 03/17/16 21:00 03/19/16 21:16 Family History Family history of diabetes and hypertension. Patient has 3 children who are alive and well. . Substance Use Tobacco: Former smoker. Unknown when he quit. Alcohol: Denies. Prescription med abuse: Denies. Illicits: Denies. . Psychosocial History Patient is to Paual Fields. They have 3 children together. Retired, independently living prior to these hospitalization. Patient originally from [place]. Patient worked as a scientist engineer prior to alf. . Spiritual/Cultural Factors No confucianist affiliation. . Living Will: Never completed Health Care Surrogate: Never completed Durable Power of Associate Dean Of Students: Never completed Health Care Surrogate(s): As per [place] statute, healthcare proxy decision falls to his , Paula Fields. . Documented care wishes: No living will completed. . Today's verbally stated goals: Patient unable to participate in goals of care conversation secondary to clinical state. . Family/friends goals: NO CODE. Continue current medical plan of care for symptom management with the goal of transferring patient to a assisted facility in [place], [place]. . Ethical and Legal Issues No ethical legal issues have been identified. No living will completed. . Physical Exam Vital Signs Date Time Temp Pulse Resp B/P Pulse Ox O2 Delivery O2 Flow Rate FiO2 03/20/16 06:19 54 16 138/63 97 03/20/16 05:42 54 16 138/63 03/20/16 02:00 56 16 129/63 96 03/19/16 22:00 63 17 126/61 96 03/19/16 21:00 62 17 131/70 99 03/19/16 19:25 97.8 56 16 136/65 98 03/19/16 03/20/16 19:00 07:00 Intake Total 960 ml 510 ml Balance 960 ml 510 ml Intake Oral 960 ml 510 ml # Voids 2 3 # Bowel Movements 1 Exam CONSTITUTIONAL/GENERAL: This is an elderly man in no apparent distress. SKIN: Pale. No jaundice. Ecchymoses on upper extremities. Dressing to right forearm. Dry scabs to right knee. Skin temperature appropriate. Not diaphoretic. Dry skin. HEAD: Atraumatic. Normocephalic. EYES: Eyes closed. Did not open eyes during my visit. ENT: Unable to assess hearing. Nose without bleeding or purulent drainage. Mouth close, unable to assess. NECK: Trachea midline. Supple, nontender. CARDIOVASCULAR: Regular rate and rhythm. Peripheral pulses symmetric. Ankle edema bilaterally. RESPIRATORY/CHEST: Symmetric, unlabored respirations. Diminished, Clear to auscultation. Breath sounds equal bilaterally. GASTROINTESTINAL: Abdomen soft, non-tender, nondistended. Bowel sounds present. GENITOURINARY: Without palpable bladder distension. MUSCULOSKELETAL: Extremities without clubbing, or mottling. NEUROLOGICAL: Eyes closed during the visit, did not arouse to verbal or tactile stimuli. PSYCHIATRIC: Unable to assess secondary to clinical condition. Appears calm. . Diagnostic Tests Result Diagram: 03/17/16 0639 Patient/Family Conference Present at Family Conference: Paula Fields. Family Conference Time (mins): 26 Family Conference Location: Telephone Issues Discussed: * Palliative care role, purpose, approach * Additional medical, psychosocial, and spiritual history * Patients general health, functional status, and cognitive changes in the months leading up to the current hospitalization * Family understanding of the current medical problems * Family understanding of prognosis --including dementia as a terminal condition. * Patients goals of care as best understood from advance directives and/or conversations and/or values * Current medical treatment options * Likely scenarios comparing ongoing aggressive care with a transition to comfort measures only * Questions answered to the best of my ability * Palliative care contact information provided * Hospice philosophy and benefits . Assessment and Plan Disease Oriented Problem List: (1) Dementia Comment: With behavioral disturbances (2) HTN (hypertension) (3) DM (diabetes mellitus) Symptom Scale: (1) Debility 0-10 Scale: Unable to quantify Comment: Progressive over the past 4 years, worsened. Pertinent Non-Medical Issues Psychosocial: . Has 3 children. Spiritual: No confucianist affiliation. Legal: No living will completed. Ethical issues impacting care: No ethical issues have been identified. . Important Contacts Paula Fields [phone]. . Prognosis Mr. Fields is an 80 y/o male with a medical history significant for Alzheimer's dementia with behavioral disturbances, HTN, diabetes mellitus type 2 and CKD. Patient presented to the ED on 03/08/16 secondary to aggressive behavior towards his , patient was placed under Kramer Act and evaluated by psychiatry. Patient at high risk for complications, continued decline and . Patient's overall prognosis is poor and improved quality of life or long-term survival given his age, pre-existing functional status, advanced dementia, and multiple chronic comorbidities. Patient appears hospice appropriate, however, not in line with family's goals of care. . Code Status: No Code Plan * NO CODE. * Patient incapacitated to make medical decisions secondary to severe Alzheimer' s dementia. As per [place] statute, healthcare proxy decision falls to his , Paula Fields. * NO CODE. Continue current medical plan of care for symptom management with the goal of transferring patient to a assisted facility in [place], [place]. As per , transfer has been set up for 04/06/16 via medical transport. One of patient's sons resides in [facility]. Patient' s will also be relocating. Reviewed with pt's progression of dementia as a terminal condition, to include continuation of cognitive and physical decline and dysphagia. Patient's not receptive of this conversation. However she confirmed that patient is a no code. tells me that patient is not ready for hospice at this time. Discussed the future role of hospice services should patient's symptoms burden continues to increase or continued decline. * SYMPTOMS: == Debility: Progressive over the past 4 years secondary to dementia. Patient is a total care. PPS 30%. * Palliative care contact information has been provided to patient's . * Palliative care will continue to follow-up for further clarification of goals. However at this time goals appear to be clear. . Time Spent Total Floor Time (mins): 75 (Total time to include review of available medical records, physical exam, telephone conversation with patient's , and case discussion with psych staff.) Face to Face Time (mins): 28 >50% Counseling/Coord of Care: Yes Thank you for the opportunity to participate in the care of Mr. Fields. Attestation To help prompt me to consider important information that might be impacting today's encounter and assessment, information from prior notes written by myself or my colleagues may have been "brought forward" into today's note. My signature on this note, however, is an attestation that I personally performed the exam, history, and/or decision-making noted today, and, unless otherwise indicated, the interactions with patient, family, and staff as well as the review of records all occurred today. I also attest that the listed assessment and stated plan reflect my best clinical judgment today based on the combination of historical information, prior notes, and today's exam/ interactions. When time spent is documented, it refers only to time spent today by the signer, or if indicated, combined time spent today by collaborating physician/nurse practitioner. Angela Ellis Mar 20, 2016 16:36
[2016-03-20] MEDS: QUEtiapine FUMARATE 300 MG TAB PO SCH (20:21)
[2016-03-20] MEDS: INSULIN DETEMIR 100 UNITS/ML VIAL SQ SCH (20:21)
[2016-03-20] MEDS: DONEPEZIL HCL 5 MG TAB PO SCH (20:21)
[2016-03-21] MEDS: LORazepam 0.5 MG TAB PO PRN (00:39)
[2016-03-21] MEDS: OLANZapine IM 10 MG VIAL IM PRN ×2 (01:44→08:30)
[2016-03-21 05:13] VITALS: BP 113/56; PULSE 60; RESP 16; TEMP 97.9
[2016-03-21] MEDS: INSULIN ASPART SUPPLEMENTAL SCALE SQ SCH ×4 (06:27→21:00)
[2016-03-21] MEDS: amLODIPine BESYLATE 5 MG TAB PO SCH (09:00)
[2016-03-21] MEDS: MEMANTINE HCL 10 MG TAB PO SCH (09:00)
[2016-03-21] MEDS: QUEtiapine FUMARATE 25 MG TAB PO SCH ×2 (11:26→18:00)
[2016-03-21] MEDS: LORazepam 2 MG/ML VIAL IM PRN (11:36)
--- NOTE | 2016-03-21 14:00 | HHI.PYPN ---
Subjective Remarks Patient seen in dayroom with floor staff, patient continues at times irritable special ed being approached for hygiene are care. Continues markedly demented with little responses to verbal stimuli. Compliant medications. For now continue treatment Review of Systems Except as stated in HPI: all other systems reviewed are Neg Objective Alert: Yes (patient drowsy to alert) [place]: Person Mood: Calm Affect: Restricted Memory Intact: Comment (very poor) Hallucinations: Other (denies) Delusions: No Delusion Type: Paranoid Suicidal: Ideation (denies) Homicidal: Ideation (denies) Insight/Judgement Poor Vitals/IOs Vital Signs Date Time Temp Pulse Resp B/P Pulse Ox O2 Delivery O2 Flow Rate FiO2 03/21/16 05:13 97.9 60 16 113/56 03/20/16 06:19 97 Intake and Output 03/20/16 03/20/16 03/21/16 08:00 16:00 00:00 Intake Total 120 ml 0 ml Balance 120 ml 0 ml Assessment & Plan Problem List: (1) Dementia ICD Code: F03.90 Assessment & Plan Estimated LOS: days patient continues to mentate with some agitation, compliant medications. Justification for Cont. Inpt. At this time patient was seriously decompensate if placed in the lower level of care Discharge Planning To be determined Request HC Surrog/Guard Advoc?: Yes Problem Qualifiers (1) Dementia: Qualified Code: F03.91 - Dementia with behavioral disturbance, unspecified dementia type Ari Antonio MD Mar 21, 2016 14:00
[2016-03-21] MEDS: DONEPEZIL HCL 5 MG TAB PO SCH ×2 (20:31→20:50)
[2016-03-21] MEDS: QUEtiapine FUMARATE 300 MG TAB PO SCH ×2 (20:32→20:50)
[2016-03-21] MEDS: INSULIN DETEMIR 100 UNITS/ML VIAL SQ SCH (20:32)
[2016-03-22 05:59] VITALS: BP 147/60; PULSE 51; RESP 16; TEMP 97.6; O2SAT 99
[2016-03-22] MEDS: INSULIN ASPART SUPPLEMENTAL SCALE SQ SCH ×4 (06:40→19:46)
[2016-03-22] MEDS: LORazepam 2 MG/ML VIAL IM PRN (07:01)
[2016-03-22] MEDS: amLODIPine BESYLATE 5 MG TAB PO SCH (10:02)
[2016-03-22] MEDS: MEMANTINE HCL 10 MG TAB PO SCH (10:02)
[2016-03-22] MEDS: QUEtiapine FUMARATE 25 MG TAB PO SCH ×2 (11:47→18:00)
--- NOTE | 2016-03-22 13:57 | HHI.PYPN ---
Subjective Remarks Pt seen and discussed with staff. Pt was agitated this morning and received an ativan x1. He has been calm and resting in day room. Compliant with medications. No SI/HI Objective Alert: Yes (patient drowsy to alert) [place]: Person Mood: Calm Affect: Restricted Memory Intact: Comment (very poor) Hallucinations: Other (denies) Delusions: No Delusion Type: Paranoid Suicidal: Ideation (denies) Homicidal: Ideation (denies) Insight/Judgement poor Vitals/IOs Vital Signs Date Time Temp Pulse Resp B/P Pulse Ox O2 Delivery O2 Flow Rate FiO2 03/22/16 05:59 97.6 51 16 147/60 99 Intake and Output 03/21/16 03/21/16 03/22/16 08:00 16:00 00:00 Intake Total 1440 ml 480 ml Balance 1440 ml 480 ml Assessment & Plan Problem List: (1) Dementia ICD Code: F03.90 Assessment & Plan Continue current tx plan. Estimated LOS: days Justification for Cont. Inpt. impairments in safety Request HC Surrog/Guard Advoc?: Yes Problem Qualifiers (1) Dementia: Qualified Code: F03.91 - Dementia with behavioral disturbance, unspecified dementia type Tasha Baum MD Mar 22, 2016 13:57
[2016-03-22] MEDS ORDERED: diphenhydrAMINE HCL 50 MG/ML VIAL IM PRN (17:15)
[2016-03-22] MEDS ORDERED: diphenhydrAMINE HCL 50 MG CAP PO PRN (17:15)
[2016-03-22] MEDS ORDERED: BENZTROPINE MESYLATE 2 MG/2 ML VIAL IM ONE (17:15)
[2016-03-22] MEDS: INSULIN DETEMIR 100 UNITS/ML VIAL SQ SCH (19:45)
[2016-03-22] MEDS: LORazepam 0.5 MG TAB PO PRN (20:27)
[2016-03-22] MEDS: QUEtiapine FUMARATE 300 MG TAB PO SCH (20:27)
[2016-03-22] MEDS: DONEPEZIL HCL 5 MG TAB PO SCH (20:27)
[2016-03-23 05:13] VITALS: BP 116/59; PULSE 49; RESP 18; O2SAT 95
[2016-03-23] MEDS: INSULIN ASPART SUPPLEMENTAL SCALE SQ SCH ×4 (06:14→21:00)
[2016-03-23] MEDS: amLODIPine BESYLATE 5 MG TAB PO SCH (09:00)
[2016-03-23] MEDS: MEMANTINE HCL 10 MG TAB PO SCH (09:00)
[2016-03-23 11:46] VITALS: BP 103/54; PULSE 55
[2016-03-23] MEDS: QUEtiapine FUMARATE 25 MG TAB PO SCH ×2 (12:00→17:23)
--- NOTE | 2016-03-23 16:40 | HHI.PYPN ---
Subjective Remarks Pt seen and discussed with staff. Pt has been sleeping off and on most of day. Staff report that pt's appetite has decreased. No agitation. Objective Alert: Yes (patient drowsy to alert) [place]: Person Mood: Calm Affect: Restricted Memory Intact: Comment (very poor) Hallucinations: Other (denies) Delusions: No Delusion Type: Other (none) Suicidal: Ideation (denies) Homicidal: Ideation (denies) Insight/Judgement poor Vitals/IOs Vital Signs Date Time Temp Pulse Resp B/P Pulse Ox O2 Delivery O2 Flow Rate FiO2 03/23/16 11:46 55 103/54 03/23/16 05:13 18 95 03/22/16 05:59 97.6 Intake and Output 03/22/16 03/22/16 03/23/16 08:00 16:00 00:00 Intake Total 360 ml 600 ml 180 ml Balance 360 ml 600 ml 180 ml Assessment & Plan Problem List: (1) Dementia ICD Code: F03.90 Assessment & Plan Continue current tx plans. Estimated LOS: days Justification for Cont. Inpt. impairments in self care Request HC Surrog/Guard Advoc?: Yes Problem Qualifiers (1) Dementia: Qualified Code: F03.91 - Dementia with behavioral disturbance, unspecified dementia type Tasha Baum MD Mar 23, 2016 16:40
[2016-03-23 19:35] VITALS: BP 116/59; PULSE 49; RESP 18
[2016-03-23] MEDS: DONEPEZIL HCL 5 MG TAB PO SCH (20:47)
[2016-03-23] MEDS: QUEtiapine FUMARATE 300 MG TAB PO SCH (20:48)
[2016-03-23] MEDS: INSULIN DETEMIR 100 UNITS/ML VIAL SQ SCH (21:00)
[2016-03-24 05:18] VITALS: BP 107/62; PULSE 61; RESP 18; O2SAT 97
[2016-03-24] MEDS: INSULIN ASPART SUPPLEMENTAL SCALE SQ SCH ×4 (06:28→21:00)
[2016-03-24] MEDS: amLODIPine BESYLATE 5 MG TAB PO SCH (09:29)
[2016-03-24] MEDS: MEMANTINE HCL 10 MG TAB PO SCH (09:29)
[2016-03-24] MEDS: QUEtiapine FUMARATE 25 MG TAB PO SCH ×2 (11:54→18:00)
--- NOTE | 2016-03-24 15:48 | HHI.PR ---
Subjective Remarks patient sitting up in chair. Denies any pain. Objective Vitals Vital Signs Date Time Temp Pulse Resp B/P Pulse Ox O2 Delivery O2 Flow Rate FiO2 03/24/16 05:18 61 18 107/62 97 03/23/16 19:35 49 18 116/59 I/O 03/23/16 03/23/16 03/23/16 03/24/16 03/24/16 03/24/16 07:00 15:00 23:00 07:00 15:00 23:00 Intake Total 0 ml 0 ml 360 ml Balance 0 ml 0 ml 360 ml Intake Oral 0 ml 0 ml 360 ml # Voids 2 2 2 Objective Remarks GENERAL: This is a well-nourished, well-developed patient, in no apparent distress. SKIN: No rashes, ecchymoses or lesions. Cool and dry. HEAD: Atraumatic. Normocephalic. No temporal or scalp tenderness. EYES: Extraocular motions intact. No scleral icterus. No injection or drainage. CARDIOVASCULAR: Regular rate and rhythm without murmurs, gallops, or rubs. RESPIRATORY: Clear to auscultation. Breath sounds equal bilaterally. No wheezes , rales, or rhonchi. GASTROINTESTINAL: Abdomen soft, non-tender, nondistended. No hepato-splenomegaly , or palpable masses. No guarding. MUSCULOSKELETAL: Extremities without clubbing, cyanosis, or edema. No joint tenderness, effusion, or edema noted. No calf tenderness. Negative Homans sign bilaterally. NEUROLOGICAL: Patient is awake/alert during exam. Confused. Oriented to self. Moves all extremities weakly. Procedures None. A/P Problem List: (1) Dementia ICD Code: F03.90 Status: Acute (2) DM (diabetes mellitus) ICD Code: E11.9 Status: Acute (3) HTN (hypertension) ICD Code: I10 Status: Acute (4) Acute kidney injury ICD Code: N17.9 Status: Acute Assessment and Plan 80-year-old male with: Dementia with Behavioral Disturbance: presented under Kramer Act for aggressive behavior towards his . Likely worsening dementia compounded by dehydration with JOSE and hypertensive urgency. No SI/HI. Continue patient's Namenda/ Aricept. Consult PT/OT. Consulted psychiatry, recommended admission to inpatient psychiatry, started on Seroquel. Haldol IM prn. Restraints prn. HTN - continue Norvasc 5 mg daily, - Monitor BP trend Diabetes Mellitus 2 - stable -hemoglobin A1c 8.2 -Continue Levemir to 10 units QHS.- - Insulin sliding scale. max nighttime dose of insulin 2 units. - Monitor Accu-Cheks. Monitor for hypoglycemia. Chronic kidney disease - was in acute kidney injury during hospital admission. Creatinine remains elevated. - Continue to encourage PO fluid intake - Renal ultrasound has been canceled 2 patient has been uncooperative and refusing - Creatinine continues to be elevated. Recheck BMP - Palliative care was consulted. As per , plan for patient is to go to a shelter facility and [place]. He declines hospice involvement. Probable dystrophic onychomycosis - Would avoid oral anti-fungal at this point. His nail lesions are not new. Encourage PO fluid intake, ensure with meals Code Status Full code Discussed Condition with Patient, nursing Written by Abel Walker, acting as scribe for Dr. Gonzalez on 03/24/16 at 15:00. The documentation accurately reflects the work performed [id number] by me, Dr. Gonzalez on 03/24/16 at 15:00. Problem Qualifiers (1) Dementia: Qualified Code: F03.91 - Dementia with behavioral disturbance, unspecified dementia type Abel Calero Mar 24, 2016 15:48 Cholo Gonzalez MD Mar 25, 2016 18:37
--- NOTE | 2016-03-24 16:17 | HHI.PYPN ---
Subjective Remarks Patient discussed with treatment team patient's and medical student Chandni, chart reviewed, patient seen on unit, patient just has some difficulty with feeding though he does better when assisted by his at lunchtime. It appears plans are being finalized for transfer this patient to a facility in [place] to be near his and children. It appears this will be done on 04/07 patient was does notice some decrease in his functioning we will check his urine Review of Systems Except as stated in HPI: all other systems reviewed are Neg Objective Alert: Yes (patient drowsy to alert) [place]: Person Mood: Calm Affect: Restricted Memory Intact: Comment (very poor) Hallucinations: Other (denies) Delusions: No Delusion Type: Other (none) Suicidal: Ideation (denies) Homicidal: Ideation (denies) Insight/Judgement Very poor Vitals/IOs Vital Signs Date Time Temp Pulse Resp B/P Pulse Ox O2 Delivery O2 Flow Rate FiO2 03/24/16 05:18 61 18 107/62 97 03/22/16 05:59 97.6 Intake and Output 03/23/16 03/23/16 03/24/16 08:00 16:00 00:00 Intake Total 0 ml 0 ml Balance 0 ml 0 ml Assessment & Plan Problem List: (1) Dementia ICD Code: F03.90 Assessment & Plan Estimated LOS: days patient continues demented, times somewhat irritable, it appears transportation schedule is being set up for this gentleman, will check urine Justification for Cont. Inpt. This time patient would significant a decompensate if placed on lower level of care Discharge Planning To be determined Request HC Surrog/Guard Advoc?: Yes Problem Qualifiers (1) Dementia: Qualified Code: F03.91 - Dementia with behavioral disturbance, unspecified dementia type Ari Antonio MD Mar 24, 2016 16:17
[2016-03-24] MEDS: DONEPEZIL HCL 5 MG TAB PO SCH (21:00)
[2016-03-24] MEDS: QUEtiapine FUMARATE 300 MG TAB PO SCH (21:00)
[2016-03-24] MEDS: INSULIN DETEMIR 100 UNITS/ML VIAL SQ SCH (21:00)
[2016-03-24 21:32] VITALS: BP 99/54; PULSE 50; RESP 18
[2016-03-25] MEDS: INSULIN ASPART SUPPLEMENTAL SCALE SQ SCH ×3 (06:11→16:18)
[2016-03-25 06:17] VITALS: BP 126/61; PULSE 71; RESP 18; TEMP 97.3; O2SAT 95
[2016-03-25 08:22] LABS: BLOOD, URINE NEG (NEG); COMMENT (UR) CULT NOT INDICATED; CULTURE IF INDICATED CULT NOT INDICATED; GLUCOSE,URINE NEG (NEG); GRANULAR CAST, URINE 1 /lpf; HYALINE CAST, URINE 25 /lpf (RARE); KETONE, URINE NEG (NEG); MUCUS URINE FEW /lpf (OCC); NITRITE,URINE NEG (NEG); SQUAMOUS EPITHELIAL CELL URINE <1 /hpf (0-5); URINE COLOR YELLOW (YELLW/STRAW)
[2016-03-25] MEDS: amLODIPine BESYLATE 5 MG TAB PO SCH (08:26)
[2016-03-25] MEDS: MEMANTINE HCL 10 MG TAB PO SCH (08:31)
[2016-03-25] MEDS: QUEtiapine FUMARATE 25 MG TAB PO SCH (12:13)
--- NOTE | 2016-03-25 14:00 | HHI.PYPN ---
Subjective Remarks Patient seen in day room with floor staff, patient in [place] chair somewhat sleepy and mapping arousable to confused. Discussed case with nursing staff patient showing very poor oral intake, is concerned about patient's hydration and ability to care for self at this time that is showing a significant international exchange coordinator the past 1-2 days. I did discuss this with the hospitalist on-call for this unit he is coming down to assess patient. I will order stat CBC with differential and CMP for him. Review of Systems Except as stated in HPI: all other systems reviewed are Neg Objective Alert: Yes (patient drowsy to alert) [place]: Person Mood: Calm Affect: Restricted Memory Intact: Comment (very poor) Hallucinations: Other (denies) Delusions: No Delusion Type: Other (none) Suicidal: Ideation (denies) Homicidal: Ideation (denies) Insight/Judgement Very poor Labs Test 03/25/16 07:30 Urine Color YELLOW Urine Turbidity CLEAR Urine pH 5.0 Urine Specific [place] 1.021 Urine Protein NEG mg/dL Urine Glucose (UA) NEG mg/dL Urine Ketones NEG mg/dL Urine Occult Blood NEG Urine Nitrite NEG Urine Bilirubin NEG Urine Urobilinogen LESS THAN 2.0 MG/DL Urine Leukocyte Esterase NEG Urine RBC 1 /hpf Urine WBC 2 /hpf Urine Squamous Epithelial <1 /hpf Cells Urine Hyaline Casts 25 /lpf Urine Granular Casts 1 /lpf Urine Mucus FEW /lpf Microscopic Urinalysis Comment CULT NOT INDICATED Vitals/IOs Vital Signs Date Time Temp Pulse Resp B/P Pulse Ox O2 Delivery O2 Flow Rate FiO2 03/25/16 06:17 97.3 71 18 126/61 95 Intake and Output 03/24/16 03/24/16 03/25/16 08:00 16:00 00:00 Intake Total 360 ml 0 ml Balance 360 ml 0 ml Assessment & Plan Problem List: (1) Dementia ICD Code: F03.90 Assessment & Plan Estimated LOS: days patient showing altered level of consciousness, with poor oral intake, have reconsulted hospitalist to assess and make recommendations. Stat labs have been drawn Justification for Cont. Inpt. At this time there is altered level of consciousness, hospitalist is being reconsulted stat labs drawn Discharge Planning To be determined Request HC Surrog/Guard Advoc?: Yes Problem Qualifiers (1) Dementia: Qualified Code: F03.91 - Dementia with behavioral disturbance, unspecified dementia type Caliendo,Ari E. MD Mar 25, 2016 14:00
[2016-03-25 14:06] LABS: AUTOMATED NEUTROPHIL # 10.1 TH/MM3 (1.8-7.7); BASOPHIL % 0.3 % (0.0-2.0); EOSINOPHIL % 0.3 % (0.0-4.0); HEMO FLAGS DIFF FINAL; LYMPH % 7.6 % (9.0-44.0); LYMPHOCYTE # 0.9 TH/MM3 (1.0-4.8); MEAN CELL VOLUME 83.8 FL (80.0-100.0); MEAN CORPUSCULAR HEMOGLOBIN 28.6 PG (27.0-34.0); MEAN CORPUSCULAR HGB CONC 34.2 % (32.0-36.0); NEUT % 83.8 % (16.0-70.0); PLATELET COUNT 169 TH/MM3 (150-450); RED BLOOD COUNT 4.29 MIL/MM3 (4.50-5.90); RED CELL DISTRIBUTION WIDTH 14.1 % (11.6-17.2); WHITE BLOOD COUNT 12.1 TH/MM3 (4.0-11.0)
--- NOTE | 2016-03-25 16:14 | HHI.PYPN ---
Subjective Remarks Patient seen in room with nurse Davie and medical student Mary, patient calm though somewhat confused and delusional. It appears we have been contacted by some type of governmental agency. They claim that they have letter 's that were sent on this patient to the government and wish to visit with him. We will see if we get permission from the guardian advocate for this. I did speak with Lavern about this he denies having any letters to any government agencies. He became somewhat adamant and upset with this. I reassured him that we will be investigated and this also. Otherwise patient overall no behavioral problems continue to work with placement issues. Review of Systems Except as stated in HPI: all other systems reviewed are Neg Objective Alert: Yes (patient drowsy to alert) [place]inton: Person Mood: Calm Affect: Restricted Memory Intact: Comment (very poor) Hallucinations: Other (denies) Delusions: No Delusion Type: Other (none) Suicidal: Ideation (denies) Homicidal: Ideation (denies) Insight/Judgement Very poor Labs Test 03/25/16 03/25/16 07:30 13:52 Urine Color YELLOW Urine Turbidity CLEAR Urine pH 5.0 Urine Specific [place] 1.021 Urine Protein NEG mg/dL Urine Glucose (UA) NEG mg/dL Urine Ketones NEG mg/dL Urine Occult Blood NEG Urine Nitrite NEG Urine Bilirubin NEG Urine Urobilinogen LESS THAN 2.0 MG/DL Urine Leukocyte Esterase NEG Urine RBC 1 /hpf Urine WBC 2 /hpf Urine Squamous Epithelial <1 /hpf Cells Urine Hyaline Casts 25 /lpf Urine Granular Casts 1 /lpf Urine Mucus FEW /lpf Microscopic Urinalysis Comment CULT NOT INDICATED White Blood Count 12.1 TH/MM3 Red Blood Count 4.29 MIL/MM3 Hemoglobin 12.3 GM/DL Hematocrit 36.0 % Mean Corpuscular Volume 83.8 FL Mean Corpuscular Hemoglobin 28.6 PG Mean Corpuscular Hemoglobin 34.2 % Concent Red Cell Distribution Width 14.1 % Platelet Count 169 TH/MM3 Mean Platelet Volume 8.9 FL Neutrophils (%) (Auto) 83.8 % Lymphocytes (%) (Auto) 7.6 % Monocytes (%) (Auto) 8.0 % Eosinophils (%) (Auto) 0.3 % Basophils (%) (Auto) 0.3 % Neutrophils # (Auto) 10.1 TH/MM3 Lymphocytes # (Auto) 0.9 TH/MM3 Monocytes # (Auto) 1.0 TH/MM3 Eosinophils # (Auto) 0.0 TH/MM3 Basophils # (Auto) 0.0 TH/MM3 CBC Comment DIFF FINAL Differential Comment Vitals/IOs Vital Signs Date Time Temp Pulse Resp B/P Pulse Ox O2 Delivery O2 Flow Rate FiO2 03/25/16 06:17 97.3 71 18 126/61 95 Intake and Output 03/24/16 03/24/16 03/25/16 08:00 16:00 00:00 Intake Total 360 ml 0 ml Balance 360 ml 0 ml Assessment & Plan Problem List: (1) Dementia ICD Code: F03.90 Assessment & Plan Estimated LOS: days patient continues confused and disorganized, translucent increased irritability when discussing the communication and some government agency Justification for Cont. Inpt. At this time patient would significantly decompensate if placed in a lower level of care Discharge Planning To be determined Request HC Surrog/Guard Advoc?: Yes Problem Qualifiers (1) Dementia: Qualified Code: F03.91 - Dementia with behavioral disturbance, unspecified dementia type Ari Antonio MD Mar 25, 2016 16:14
--- NOTE | 2016-03-25 17:23 | HHI.PR ---
Subjective Remarks Follow up JOSE on CKD, poor PO intake, DM and sedation. Frail elderly 80 year old male patient, sitting in kvng chair in day room lethargic/sedated offers minimal response Patient offer no complaints Per RN and tech poor PO intake Objective Vitals Vital Signs Date Time Temp Pulse Resp B/P Pulse Ox O2 Delivery O2 Flow Rate FiO2 03/25/16 06:17 97.3 71 18 126/61 95 03/24/16 21:32 50 18 99/54 I/O 03/24/16 03/24/16 03/24/16 03/25/16 03/25/16 03/25/16 07:00 15:00 23:00 07:00 15:00 23:00 Intake Total 360 ml 0 ml 480 ml Output Total 200 ml Balance 360 ml 0 ml 280 ml Intake Oral 360 ml 0 ml 480 ml Output Urine Total 200 ml # Voids 2 2 2 0 Result Diagram: 03/25/16 1352 Objective Remarks GENERAL: This is a frail elderly 80 year old male patient, lethargic/sedated in day room offers minimal response SKIN: No rashes, ecchymoses or lesions. dry. HEAD: Atraumatic. Normocephalic. No temporal or scalp tenderness. EYES: Extraocular motions intact. No scleral icterus. No injection or drainage. CARDIOVASCULAR: Regular rate and rhythm without murmurs, gallops, or rubs. RESPIRATORY: Clear to auscultation. Breath sounds equal bilaterally. No wheezes , rales, or rhonchi. GASTROINTESTINAL: Abdomen soft, non-tender, nondistended. No hepato-splenomegaly , or palpable masses. No guarding. MUSCULOSKELETAL: Extremities without clubbing, cyanosis, or edema. No joint tenderness, effusion, or edema noted. No calf tenderness. Negative Homans sign bilaterally. NEUROLOGICAL: Patient lethargic/sedated in day room. Oriented to self. Moves all extremities weakly. Procedures None. A/P Problem List: (1) Dementia ICD Code: F03.90 Status: Acute (2) DM (diabetes mellitus) ICD Code: E11.9 Status: Acute (3) HTN (hypertension) ICD Code: I10 Status: Acute (4) Acute kidney injury ICD Code: N17.9 Status: Acute Assessment and Plan 80-year-old male with dementia with Behavioral Disturbance: presented under [place] Act for aggressive behavior towards his . Likely worsening dementia compounded by dehydration with JOSE and hypertensive urgency. No SI/HI. Continue patient's Namenda/Aricept. Consult PT/OT. Consulted psychiatry, recommended admission to inpatient psychiatry, started on Seroquel. HTN - continue Norvasc 5 mg daily, - Monitor BP trend Diabetes Mellitus 2 - stable -hemoglobin A1c 8.2 -Continue Levemir to 10 units QHS.- - Insulin sliding scale. max nighttime dose of insulin 2 units. - Monitor Accu-Cheks. Monitor for hypoglycemia. //toxic encephalopathy Likely secondary to Seroquel in the setting of renal failure //Possible uremic encephalopathy. Secondary to kidney failure. We'll need IV hydration in the hospital. acute kidney injury with Chronic kidney disease - Creatinine remains elevated. - Continue to encourage PO fluid intake - Renal ultrasound has been canceled 2 patient has been uncooperative and refusing - Creatinine continues to be elevated. Recheck CMP pending - Palliative care was consulted. As per , plan for patient is to go to a intermediate facility and [place]. He declines hospice involvement. -03/25. Worsening renal failure. Creatinine 2.4. Very poor by mouth intake. Most likely secondary to Seroquel, which is 70% renally cleared. Have discontinued Seroquel, however patient will need hydration at least for a couple days while Seroquel clears. patient's previously declined IV fluids during this admission, however have discussed with her on 03/25, and she agrees with transfer to Hospital for IV fluids. 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 His nail lesions are not new. Encourage PO fluid intake, ensure with meals Code Status Full code Discussed Condition with Patient, nursing, Dr. Antonio and Patient's Paula Written by Nanci Paniagua, acting as scribe for Dr. Gonzalez on 03/25/16 at 17 :19. The documentation accurately reflects the work performed [id number] by me, Dr. Gonzalez on 03/25/16 at 17:19. Discharge Planning discharge patient, admit to inpatient setting for IV hydration while Seroquel wears off Problem Qualifiers (1) Dementia: Qualified Code: F03.91 - Dementia with behavioral disturbance, unspecified dementia type Nanci Paniagua Mar 25, 2016 17:22 Cholo Gonzalez MD Mar 25, 2016 18:42
[2016-03-25 17:29] LABS: ALT (GPT) 58 U/L (12-78); ANION GAP 8 MEQ/L (5-15); AST (GOT) 25 U/L (15-37); BICARBONATE 25.5 MEQ/L (21.0-32.0); BLOOD UREA NITROGEN 70 MG/DL (7-18); CHLORIDE 100 MEQ/L (98-107); GLOMERULAR FILTRATION RATE 26 ML/MIN (>89); POTASSIUM 4.9 MEQ/L (3.5-5.1); SODIUM (NA) 133 MEQ/L (136-145)
[2016-03-25 17:31] LABS: ALKALINE PHOSPHATASE 131 U/L (45-117); TOTAL BILIRUBIN ADULT 0.3 MG/DL (0.2-1.0)
[2016-03-25] MEDS ORDERED: LEVEMIR SQ (18:35)
[2016-03-25 19:36] VITALS: BP 117/58; PULSE 51; RESP 18; TEMP 97.6; O2SAT 96
--- NOTE | 2016-05-01 08:34 | HHI.DS ---
Psychiatry Discharge Summary Inpatient Psychiatric care?: Yes Advance Directive: No Reason Not Provided: Due to Patient Condition Mental Health AdvanceDirective: No Health Care Proxy: Yes Admission Admission Date Mar 08, 2016 at 12:35 Admission Diagnosis: (1) Acute renal failure ICD Code: N17.9 (2) Dementia with behavioral disturbance ICD Code: F03.91 Brief History Pt was seen and discussed with staff. Chart reviewed. Pt is an 80 YOWM with a hx of dementia who was admitted to psychiatry under a BA due to aggression towards . Allegedly pt became aggressive due to belief that he had been kidnapped. Dementia has worsened significantly over past six months. He is noted to be oriented only to self. He states he thinks it is November 17, 1993 and he is in [facility]. He displays poverty of thought. He requires assistance with ADLs. He sings God FabZat when MD asks why he is in the hospital. Tobacco Use In Past 30 Days: No Tobacco Past 30 Days Alcohol Use: Never Hospital Course Patient's dementing process was consistent through his stay. The was various communications with his family and . With the goal for transfer facility in [place] to be near his family since the had already made plans to move to that area. However during the process patient experienced acute renal failure and was transferred to the medical floor under visit [phone]. Patient is treated at that unit, when he recovered the timing was such that he was transferred directly to the facility in [place]. He did not return to the psychiatric unit Results Blood Pressure 117 / 58 Blood pressure 117/58 pulse 51 respirations 18 Please see EMR for full lab results Summary of Procedures None done Pending results at discharge: No Medications # of Antipsychotic meds at D/C: 1 Approp Antipsych med options 1 - Minimum of three failed multiple trials of monotherapy. 2 - Documented plan to taper to monotherapy due to previous use of multiple meds OR cross-taper in progress at D/C. 3 - Documentation of augmentation of Clozapine. 4 - Justification other than those listed in allowable values 1-3, document here : Discharge Discharge Date: Mar 25, 2016 Discharge Diagnosis: (1) Acute renal failure ICD Code: N17.9 (2) Alzheimer's dementia with behavioral disturbance ICD Code: G30.8 Mental Status Exam at Disch Alert diffusely disorganized white male appears stated age sitting in [place] chair , affect shows decreased range intensity mood is quite restricted. Speech rate and rhythm are somewhat decreased markedly circumstantial and tangential. No autofusion hallucinations noted no delusions noted insight and judgment is very poor cognition markedly limited Pt Condition on Discharge: Guarded Discharge Disposition: Disch to Another Hospital Discharge Instructions Diet Instructions: As Tolerated, No Restrictions Activities you can perform: Regular-No Restrictions Scheduled Appointment: admit to [facility] medical service Discharge Time > 30 minutes Discharge/Advance Care Plan Health Problems: (1) Dementia Goals to promote your health * To prevent worsening of your condition and complications * To maintain your health at the optimal level Directions to meet your goals Take your medications as prescribed Follow your dietary instruction Follow activity as directed Keep your appointments as scheduled Take your immunizations and boosters as scheduled If your symptoms worsen call your PCP, if no PCP go to Urgent Care Center or Emergency Room For 24/ questions related to your inpatient stay or results of tests pending at discharge, please contact Dr. Ari Antonio at Smoking is Dangerous to Your Health. Avoid second hand smoking Ari Antonio MD May 01, 2016 08:34
== END 2016-03-25 19:55 | disposition short-term general hospital (02) | DRG 56 ==
LOC: H250 12:35
PROVIDERS: ADMIT Psychiatry & Neurology Psychiatry; ATTEND Psychiatry & Neurology Psychiatry
DX: G30.9 Alzheimer's disease, unspecified (principal); G92 Toxic encephalopathy; N17.9 Acute kidney failure, unspecified; F02.81 Dementia in other diseases classified elsewhere, unspecified severity, with behavioral disturbance; B35.1 Tinea unguium; I16.0 Hypertensive urgency; I12.9 Hypertensive chronic kidney disease with stage 1 through stage 4 chronic kidney disease, or unspecified chronic kidney disease; N18.9 Chronic kidney disease, unspecified; Z87.891 Personal history of nicotine dependence; Z79.4 Long term (current) use of insulin; Z85.038 Personal history of other malignant neoplasm of large intestine; Z66 Do not resuscitate; Z98.890 Other specified postprocedural states; Z48.03 Encounter for change or removal of drains; E86.0 Dehydration; E11.649 Type 2 diabetes mellitus with hypoglycemia without coma; S80.211A Abrasion, right knee, initial encounter; Z78.1 Physical restraint status; Z86.73 Personal history of transient ischemic attack (TIA), and cerebral infarction without residual deficits; W01.0XXA Fall on same level from slipping, tripping and stumbling without subsequent striking against object, initial encounter
CPT/HCPCS: 80048; 80053; 80061; 81001; 82948; 83036; 83735; 85025; 87493; J0515; J1644; J1815; J2060

== ENCOUNTER 2016-03-25 21:55 | Inpatient (IN) | payer MEDICARE, BC ==
[~2016-03-25] VITALS: Ht 182.9 cm; Wt 93.1 kg
[2016-03-25 20:05] VITALS: BP 122/60; PULSE 53; RESP 16; TEMP 95; O2SAT 94
[~2016-03-25 21:55] MED LIST changes: -QUET1TAB7 PO
[2016-03-26] VITALS: BP 117/73; PULSE 54; RESP 16; TEMP 94.5; O2SAT 94
[2016-03-26] MEDS: SODIUM CHLOR 0.9% 1000 ML INJ 1,000 ML IV SCH ×3 (01:13→20:18)
[2016-03-26 04:00] VITALS: BP 123/58; PULSE 65; RESP 16; TEMP 95.1; O2SAT 94
[2016-03-26 08:05] VITALS: BP 110/72; PULSE 70; RESP 20; TEMP 97.2; O2SAT 94
--- NOTE | 2016-03-26 11:35 | HHI.HP ---
[facility] Gael Gandhi MD Admission Diagnosis Diagnoses: (1) Acute renal injury Diagnosis: Principal Chief Complaint: Confused, none of which appear. Travel History International Travel<30 Days: No Contact w/Intl Traveler <30 Da: No Traveled to Known Affected Are: No History of Present Illness 80-year-old white male with a history of dementia, hypertension, diabetes mellitus type 2, chronic kidney disease stage III who was recently admitted to psychiatric unit for dementia with behavior disturbance who was recently transferred to be admitted to the medical surgical floor due to acute kidney injury superimposed on chronic kidney disease stage III due to poor oral intake and dehydration and increased sedation due to Seroquel use. At this time, patient is sitting in the geriatric chair pleasantly confused, he was able to follow simple commands 11 exam and his heart and lungs. He has no questions for me. He tells me he can do whatever I wanted. Review of Systems ROS Limitations: Poor Historian Past Family Social History Past Medical History Dementia Hypertension diabetes mellitus type 2, Chronic kidney disease stage 3 Past Surgical History Lipoma resection colon Cancer with partial colectomy Reported Medications Norvasc 5 mg by mouth daily Donepezil 5 mg by mouth daily at bedtime NovoLog sliding scale insulin LEVEMIR 10 units subcutaneous daily at bedtime Namenda 10 mg by mouth twice a day Allergies: Coded Allergies: No Known Allergies (Unverified , 03/05/16) Family History Unable to obtain due to dementia. Social History Unable to obtain Physical Exam Vital Signs Vital Signs Date Time Temp Pulse Resp B/P Pulse Ox O2 Delivery O2 Flow Rate FiO2 03/26/16 08:05 97.2 70 20 110/72 94 03/26/16 04:00 95.1 65 16 123/58 94 03/26/16 00:00 94.5 54 16 117/73 94 03/25/16 20:05 95.0 53 16 122/60 94 Physical Exam GENERAL: This is a well-nourished, well-developed pleasantly confused patient, in no apparent distress sitting up in a geriatric chair. SKIN: Drying of the skin with keratotic take changes in the bilateral nail beds , bilateral dry bandage on bilateral forearm. Cool and dry. HEAD: Atraumatic. Normocephalic. No temporal or scalp tenderness. EYES: Pupils equal round and reactive. Extraocular motions intact. No scleral icterus. No injection or drainage. ENT: Nose without bleeding, purulent drainage or septal hematoma. Throat without erythema, t NECK: Trachea midline. No JVD or lymphadenopathy. Supple, nontender, no meningeal signs. CARDIOVASCULAR: Regular rate and rhythm RESPIRATORY: Clear to auscultation. Breath sounds equal bilaterally. No wheezes , rales, or rhonchi. GASTROINTESTINAL: Abdomen soft, non-tender, nondistended. Normoactive bowel sounds MUSCULOSKELETAL: Extremities without clubbing, cyanosis, elevated, trace edema NEUROLOGICAL: Confused, not oriented to person, time or situation, oriented to place. Cranial nerves II through XII intact. Motor and sensory grossly within normal limits follow simple commands. Normal speech. Assessment and Plan Problem List: (1) Acute renal injury ICD Code: N17.9 Status: Acute Assessment and Plan 1. Acute kidney injury superimposed on chronic kidney disease stage IIIthis is likely due to dehydration report or intake in the psychiatric unit due to increased sedation with Seroquel well which has been discontinued. At this token the will hydration and monitor renal function. Avoid nephrotoxins. Increase oral intake with supplemental feedings. 2. Chronic dementia with recent behavior disturbancescurrently stable internal resume home medications. Will stop Seroquel. 3. Hypertension, benign, essentialresume antihypertensive Norvasc and continue to monitor blood pressure during hospitalization. 4. Diabetes TYPE IIcontinue Accu-Cheks and sliding scale insulin. Resume basal insulin adjustments based on blood sugar trends. 5. Deconditioningphysical therapy consult 6. Moderate malnutrition - dietary consult and Glucerna supplements, and encourage by mouth intake. 6. DVT prophylaxisLovenox Susan Martin MD Mar 26, 2016 11:34
[2016-03-26] MEDS ORDERED: DEXTROSE 50% IN WATER 50 ML VIAL(D50) IV PUSH PRN (11:45)
[2016-03-26] MEDS ORDERED: GLUCAGON 1 MG/ML VIAL OTHER PRN (11:45)
[2016-03-26] MEDS ORDERED: ACETAMINOPHEN 325 MG TAB PO PRN ×2 (11:45)
[2016-03-26] MEDS ORDERED: ONDANSETRON HCL 4 MG/2 ML VIAL IVP PRN (11:45)
[2016-03-26] MEDS ORDERED: SODIUM CHLORIDE 0.9% FLUSH 5 ML FLUSH FLUSH PRN (11:45)
[2016-03-26] MEDS ORDERED: MAGNESIUM HYDROXIDE SUSP 30 ML CUP PO PRN (11:45)
[2016-03-26 12:24] VITALS: BP 108/66; PULSE 62; RESP 20; TEMP 97.4; O2SAT 94
[2016-03-26 12:31] LABS: AUTOMATED NEUTROPHIL # 8.9 TH/MM3 (1.8-7.7); BASOPHIL % 0.3 % (0.0-2.0); EOSINOPHIL % 0.2 % (0.0-4.0); HEMATOCRIT 36.5 % (39.0-51.0); HEMO FLAGS DIFF FINAL; LYMPH % 7.7 % (9.0-44.0); LYMPHOCYTE # 0.8 TH/MM3 (1.0-4.8); MEAN CELL VOLUME 84.7 FL (80.0-100.0); MEAN CORPUSCULAR HEMOGLOBIN 28.8 PG (27.0-34.0); MONO % 6.1 % (0.0-8.0); NEUT % 85.7 % (16.0-70.0); PLATELET COUNT 175 TH/MM3 (150-450); RED BLOOD COUNT 4.31 MIL/MM3 (4.50-5.90); RED CELL DISTRIBUTION WIDTH 14.2 % (11.6-17.2); WHITE BLOOD COUNT 10.3 TH/MM3 (4.0-11.0)
[2016-03-26] MEDS: ENOXAPARIN SODIUM 30 MG/0.3 ML SYRINGE SQ SCH (12:33)
[2016-03-26 14:29] LABS: BICARBONATE 20.9 MEQ/L (21.0-32.0); POTASSIUM 5.1 MEQ/L (3.5-5.1)
[2016-03-26] MEDS: INSULIN ASPART SUPPLEMENTAL SCALE SQ SCH ×2 (15:51→20:19)
[2016-03-26 16:05] VITALS: BP 98/56; PULSE 62; RESP 21; TEMP 97.6; O2SAT 94
[2016-03-26 20:00] VITALS: BP 123/75; PULSE 60; RESP 20; TEMP 98.8; O2SAT 94
[2016-03-26] MEDS: SODIUM CHLORIDE 0.9% FLUSH 5 ML FLUSH FLUSH SCH (20:16)
[2016-03-27] VITALS: BP 137/67; PULSE 68; RESP 22; TEMP 98.7; O2SAT 94
[2016-03-27 04:00] VITALS: BP 122/75; PULSE 67; RESP 20; TEMP 98.6; O2SAT 94
[2016-03-27] MEDS: INSULIN ASPART SUPPLEMENTAL SCALE SQ SCH ×4 (06:06→20:12)
[2016-03-27 06:49] LABS: BICARBONATE 22.4 MEQ/L (21.0-32.0)
[2016-03-27 07:04] LABS: POTASSIUM 5.3 MEQ/L (3.5-5.1)
[2016-03-27 08:00] VITALS: BP 133/71; PULSE 63; RESP 20; TEMP 97.8; O2SAT 96
[2016-03-27] MEDS: SODIUM CHLORIDE 0.9% FLUSH 5 ML FLUSH FLUSH SCH ×2 (09:00→20:13)
[2016-03-27] MEDS: SODIUM CHLOR 0.9% 1000 ML INJ 1,000 ML IV SCH ×3 (10:19→12:12)
[2016-03-27 12:00] VITALS: BP 124/58; PULSE 74; RESP 20; TEMP 97.8; O2SAT 98
[2016-03-27] MEDS ORDERED: SODIUM POLYSTYRENE SULFONATE SUSP 15 GM/60 ML CUP PO ONE (12:00)
[2016-03-27] MEDS: ENOXAPARIN SODIUM 30 MG/0.3 ML SYRINGE SQ SCH (12:13)
--- NOTE | 2016-03-27 12:41 | HHI.PR ---
Subjective Remarks No complaints. at bedside states that he still has poor oral intake and not really eating anything this morning. Objective Vitals Vital Signs Date Time Temp Pulse Resp B/P Pulse Ox O2 Delivery O2 Flow Rate FiO2 03/27/16 08:00 97.8 63 20 133/71 96 03/27/16 04:00 98.6 67 20 122/75 94 03/27/16 00:00 98.7 68 22 137/67 94 03/26/16 20:00 98.8 60 20 123/75 94 03/26/16 16:05 97.6 62 21 98/56 94 I/O 03/26/16 03/26/16 03/26/16 03/27/16 03/27/16 03/27/16 07:00 15:00 23:00 07:00 15:00 23:00 Intake Total 410 ml 360 ml 240 ml Balance 410 ml 360 ml 240 ml Intake Oral 0 ml 360 ml 240 ml IV Total 410 ml # Voids 2 1 3 # Bowel Movements 0 0 Result Diagram: 03/26/16 1130 03/27/16 0505 Objective Remarks GENERAL: This is a well-nourished, well-developed patient, in no apparent distress sitting up in geriatric chair. CARDIOVASCULAR: Regular rate and rhythm RESPIRATORY: Clear to auscultation. Breath sounds equal bilaterally. No wheezes , rales, or rhonchi. GASTROINTESTINAL: Abdomen soft, non-tender, nondistended. Normal active bowel sounds MUSCULOSKELETAL: Extremities without clubbing, cyanosis, trace edema NEURO: Confused and oriented to person only but not to time or situation. Moves all ext x4 and follows instructions A/P Problem List: (1) Acute renal injury ICD Code: N17.9 Status: Acute (2) CKD (chronic kidney disease), stage III ICD Code: N18.3 Status: Chronic Assessment and Plan 1. Acute kidney injury superimposed on chronic kidney disease stage IIIthis is likely due to dehydration and poor oral intake in the psychiatric unit due to increased sedation with Seroquel well which has been discontinued. Continue IV fluid hydration and monitor renal function. I did discuss with his at bedside who will bring food from home to encourage continued oral intake. A Avoid nephrotoxins. Increase oral intake with supplemental feedings, Glucerna. 2. Chronic dementia with recent behavior disturbancescurrently stable internal resume home medications. Will stop Seroquel. 3. Hypertension, benign, essentialresume antihypertensive Norvasc and continue to monitor blood pressure during hospitalization. 4. Diabetes TYPE IIcontinue Accu-Cheks and sliding scale insulin. Resume basal insulin adjustments based on blood sugar trends and oral intake. 5. Deconditioningphysical therapy consult 6. Moderate malnutrition - dietary consult and Glucerna supplements, and encourage by mouth intake. 7. DVT prophylaxisLovenox I discussed with his at bedside who confirmed patient's living will and advanced directive and desires a DO NOT RESUSCITATE status for the patient Discharge Planning states that she's made transportation arrangements to get the patient and her back to [facility] from next Thursday. Case management to assist with coordination. Susan Martin MD Mar 27, 2016 12:41
[2016-03-27 16:00] VITALS: BP 146/62; PULSE 62; RESP 22; TEMP 97.8; O2SAT 100
[2016-03-27 20:00] VITALS: BP 127/76; PULSE 65; RESP 20; TEMP 97.2; O2SAT 96
[2016-03-28 00:30] VITALS: BP 112/84; PULSE 77; RESP 20; TEMP 98.4; O2SAT 95
[2016-03-28 04:00] VITALS: BP 148/62; PULSE 84; RESP 20; TEMP 98.6; O2SAT 95
[2016-03-28] MEDS: SODIUM CHLOR 0.9% 1000 ML INJ 1,000 ML IV SCH ×3 (05:42→18:08)
[2016-03-28] MEDS: INSULIN ASPART SUPPLEMENTAL SCALE SQ SCH ×4 (06:15→21:00)
[2016-03-28] MEDS: SODIUM CHLORIDE 0.9% FLUSH 5 ML FLUSH FLUSH SCH ×2 (07:41→21:00)
[2016-03-28 08:00] VITALS: BP 146/64; PULSE 70; RESP 20; TEMP 98.8; O2SAT 94
--- NOTE | 2016-03-28 10:20 | HHI.PR ---
Subjective Remarks Patient is nonverbal and noninteractive. Not eating or drinking. Objective Vitals Vital Signs Date Time Temp Pulse Resp B/P Pulse Ox O2 Delivery O2 Flow Rate FiO2 03/28/16 08:00 98.8 70 20 146/64 94 03/28/16 04:00 98.6 84 20 148/62 95 03/28/16 00:30 98.4 77 20 112/84 95 03/27/16 20:00 97.2 65 20 127/76 96 03/27/16 16:00 97.8 62 22 146/62 100 03/27/16 12:00 97.8 74 20 124/58 98 I/O 03/27/16 03/27/16 03/27/16 03/28/16 03/28/16 03/28/16 07:00 15:00 23:00 07:00 15:00 23:00 Intake Total 1225 ml 480 ml 1350 ml Balance 1225 ml 480 ml 1350 ml Intake Oral 480 ml 480 ml 0 ml IV Total 745 ml 1350 ml # Voids 3 3 1 3 # Bowel Movements 0 1 Result Diagram: 03/26/16 1130 03/27/16 0505 Objective Remarks GENERAL: Non-interactive, withdraw to pain. Resting. CARDIOVASCULAR: Normal rate and regular rhythm without murmurs, gallops, or rubs. RESPIRATORY: Clear to auscultation bilaterally. GASTROINTESTINAL: Abdomen soft, non-tender, non-distended. Normal active bowel sounds NEURO: Alert to self only, does not interact with me today. PSYCH: Calm A/P Problem List: (1) Acute renal injury ICD Code: N17.9 Status: Acute (2) CKD (chronic kidney disease), stage III ICD Code: N18.3 Status: Chronic Assessment and Plan 80-year-old male with what appeared to be end-stage dementia transferred from the psychiatric unit for dehydration, acute kidney injury due to poor oral intake. Patient's goal is to take him back to [place]. Transport has been arrange for him to go back on Thursday. 1. Acute kidney injury superimposed on chronic kidney disease stage IIIthis is likely due to dehydration and poor oral intake in the psychiatric unit. Continue IV fluid hydration and monitor renal function. Staff to continue to encourage patient to eat and drink. 2. Chronic dementia with recent behavior disturbancescurrently stable. Seroquel was discontinued to avoid oversedation. 3. Hypertension, benign, essentialcontinue antihypertensive Norvasc and continue to monitor blood pressure during hospitalization. 4. Diabetes TYPE IIcontinue Accu-Cheks and sliding scale insulin. 5. Deconditioningphysical therapy consult 6. Moderate malnutrition -probably due to worsening dementia and lack of oral intake. Encourage supplements. 7. DVT prophylaxisLovenox Discharge Planning Plan for discharge Thursday to [place]. states that she's made transportation arrangements to get the patient and her back to [facility] Thursday. CM following. Donavon Staton MD Mar 28, 2016 10:19
[2016-03-28] MEDS: ENOXAPARIN SODIUM 30 MG/0.3 ML SYRINGE SQ SCH (11:30)
[2016-03-28 12:00] VITALS: BP 140/69; PULSE 80; RESP 22; TEMP 98.9; O2SAT 92
[2016-03-28 16:00] VITALS: BP 139/67; PULSE 65; RESP 20; TEMP 98.6; O2SAT 94
[2016-03-28 20:00] VITALS: BP 117/75; PULSE 55; RESP 18; TEMP 97.5; O2SAT 96
[2016-03-29] MEDS: SODIUM CHLOR 0.9% 1000 ML INJ 1,000 ML IV SCH ×2 (00:25→10:54)
[2016-03-29 00:36] VITALS: BP 121/69; PULSE 68; RESP 20; TEMP 98.6; O2SAT 97
[2016-03-29 04:00] VITALS: BP 162/65; PULSE 68; RESP 18; TEMP 98; O2SAT 95
[2016-03-29] MEDS: INSULIN ASPART SUPPLEMENTAL SCALE SQ SCH ×4 (06:11→20:34)
[2016-03-29] MEDS: SODIUM CHLORIDE 0.9% FLUSH 5 ML FLUSH FLUSH SCH ×2 (07:25→20:34)
[2016-03-29 08:00] VITALS: BP 152/66; PULSE 99; RESP 18; TEMP 97; O2SAT 98
[2016-03-29 08:09] LABS: BICARBONATE 17.5 MEQ/L (21.0-32.0); POTASSIUM 4.9 MEQ/L (3.5-5.1)
[2016-03-29] MEDS: ENOXAPARIN SODIUM 30 MG/0.3 ML SYRINGE SQ SCH (10:55)
[2016-03-29 12:00] VITALS: BP 111/64; PULSE 89; RESP 18; TEMP 97; O2SAT 97
--- NOTE | 2016-03-29 14:49 | HHI.PR ---
Subjective Remarks Patient not eating or drinking fluids Unable to answer my questions as per RN poor appetite creatinine trending down episode of HTN Objective Vitals Vital Signs Date Time Temp Pulse Resp B/P Pulse Ox O2 Delivery O2 Flow Rate FiO2 03/29/16 12:00 97.0 89 18 111/64 97 03/29/16 08:00 97.0 99 18 152/66 98 03/29/16 04:00 98.0 68 18 162/65 95 03/29/16 00:36 98.6 68 20 121/69 97 03/28/16 20:00 97.5 55 18 117/75 96 03/28/16 16:00 98.6 65 20 139/67 94 I/O 03/28/16 03/28/16 03/28/16 03/29/16 03/29/16 03/29/16 07:00 15:00 23:00 07:00 15:00 23:00 Intake Total 1350 ml 692 ml 1144 ml 742 ml Balance 1350 ml 692 ml 1144 ml 742 ml Intake Oral 0 ml 120 ml 120 ml 0 ml IV Total 1350 ml 572 ml 1024 ml 742 ml # Voids 3 2 2 2 # Bowel Movements 1 1 Result Diagram: 03/26/16 1130 03/29/16 0717 Objective Remarks GENERAL: Patient is awake and alert, nad CARDIOVASCULAR: Normal rate and regular rhythm without murmurs, gallops, or rubs. RESPIRATORY: Clear to auscultation bilaterally. GASTROINTESTINAL: Abdomen soft, non-tender, non-distended. Normal active bowel sounds NEURO: Alert to self only, does not interact with me today. PSYCH: Calm A/P Problem List: (1) Acute renal injury ICD Code: N17.9 Status: Acute Plan: 80-year-old male with what appears to be end-stage dementia transferred from psychiatric unit for dehydration, acute kidney injury due to poor oral intake. The patient's close taking back to [place]. Apparently transport has been arranged for him to go back on Thursday. JOSE on CKD stage III is likely due to dehydration and poor oral intake in the psychiatric unit. Continue with IV fluids and monitor renal function. Cor oral intake of food and liquids. (2) CKD (chronic kidney disease), stage III ICD Code: N18.3 Status: Chronic (3) Dementia with behavioral disturbance ICD Code: F03.91 Status: Acute Plan: Patient has long-standing dementia, now not eating or drinking. This is likely end-stage dementia. Seroquel has been discontinued to avoid oversedation. Consults palliative care to help address goals of care. (4) HTN (hypertension) ICD Code: I10 Status: Chronic Plan: Blood pressure seems to be stable at this time. Continue Norvasc and continue to monitor vital signs throughout hospitalization. (5) DM (diabetes mellitus) ICD Code: E11.9 Status: Chronic Plan: Continue AzaSite with insulin NovoLog. Blood sugar stable. (6) Debility ICD Code: R53.81 Status: Acute Plan: Patient has physical deconditioning. Physical therapy consulted. Physical therapy recommends PT at rehabilitation and the use of a wheelchair. (7) Moderate protein malnutrition ICD Code: E44.0 Status: Chronic Plan: Due to poor oral intake. Recommended 1999 ADA diet, which is a PhD and encourage by mouth intake. I will start the patient on megestrol acetate for appetite stimulant. I will S dietitian to do a calorie count. Problem Qualifiers (1) HTN (hypertension): Qualified Code: I10 - Essential hypertension (2) DM (diabetes mellitus): Qualified Code: E11.8 - Type 2 diabetes mellitus with complication, without long-term current use of insulin Braxton Ruelas MD Mar 29, 2016 14:49
[2016-03-29] MEDS: LACTATED RINGER'S 1000 ML INJ 1,000 ML IV SCH (14:55)
[2016-03-29 16:00] VITALS: BP 138/56; PULSE 67; RESP 20; TEMP 98.5; O2SAT 93
[2016-03-29 16:40] LABS: BLOOD, URINE TRACE (NEG); GLUCOSE,URINE NEG (NEG); KETONE, URINE 10 mg/dL (NEG); MUCUS URINE FEW /lpf (OCC); NITRITE,URINE NEG (NEG); PH, URINE 5.5 (5.0-8.5); URINE COLOR YELLOW (YELLW/STRAW)
[2016-03-29 16:41] LABS: COMMENT (UR) CULT NOT INDICATED; CULTURE IF INDICATED CULT NOT INDICATED
[2016-03-29] MEDS: MEGESTROL ACETATE SUSP 400 MG/10 ML CUP PO SCH (16:54)
[2016-03-29 20:00] VITALS: BP 163/73; PULSE 67; RESP 16; TEMP 97.6; O2SAT 97
[2016-03-30] VITALS: BP 159/72; PULSE 61; RESP 18; TEMP 97.7; O2SAT 98
[2016-03-30] MEDS: LACTATED RINGER'S 1000 ML INJ 1,000 ML IV SCH (01:11)
[2016-03-30 04:00] VITALS: BP 158/72; PULSE 80; RESP 14; TEMP 98.7; O2SAT 97
[2016-03-30] MEDS: INSULIN ASPART SUPPLEMENTAL SCALE SQ SCH (05:43)
[2016-03-30 07:44] LABS: AUTOMATED NEUTROPHIL # 5.8 TH/MM3 (1.8-7.7); BASOPHIL % 0.2 % (0.0-2.0); EOSINOPHIL # 0.1 TH/MM3 (0-0.4); EOSINOPHIL % 1.1 % (0.0-4.0); HEMATOCRIT 29.5 % (39.0-51.0); HEMO FLAGS DIFF FINAL; LYMPHOCYTE # 1.2 TH/MM3 (1.0-4.8); MEAN CELL VOLUME 84.2 FL (80.0-100.0); MEAN CORPUSCULAR HEMOGLOBIN 28.5 PG (27.0-34.0); MEAN CORPUSCULAR HGB CONC 33.8 % (32.0-36.0); NEUT % 75.7 % (16.0-70.0); PLATELET COUNT 123 TH/MM3 (150-450); RED CELL DISTRIBUTION WIDTH 13.4 % (11.6-17.2); WHITE BLOOD COUNT 7.7 TH/MM3 (4.0-11.0)
[2016-03-30 08:04] VITALS: BP 163/70; PULSE 72; RESP 24; TEMP 98.6; O2SAT 98
[2016-03-30 08:20] LABS: ALKALINE PHOSPHATASE 104 U/L (45-117); ALT (GPT) 49 U/L (12-78); ANION GAP 6 MEQ/L (5-15); AST (GOT) 36 U/L (15-37); BICARBONATE 23.6 MEQ/L (21.0-32.0); BLOOD UREA NITROGEN 39 MG/DL (7-18); CHLORIDE 115 MEQ/L (98-107); GLOMERULAR FILTRATION RATE 41 ML/MIN (>89); SODIUM (NA) 145 MEQ/L (136-145); TOTAL BILIRUBIN ADULT 0.4 MG/DL (0.2-1.0)
[2016-03-30] MEDS: ENOXAPARIN SODIUM 40 MG/0.4 ML SYRINGE SQ SCH (09:57)
[2016-03-30] MEDS: MEGESTROL ACETATE SUSP 400 MG/10 ML CUP PO SCH (09:57)
[2016-03-30] MEDS: SODIUM CHLORIDE 0.9% FLUSH 5 ML FLUSH FLUSH SCH ×2 (09:58→21:00)
[2016-03-30 12:04] VITALS: BP 160/98; PULSE 74; RESP 24; TEMP 98.5; O2SAT 98
--- NOTE | 2016-03-30 15:36 | HHI.PR ---
Subjective Remarks Pressure noted to be elevated. As per our report the patient has been sleeping most of the time today. Phosphorus noted to be low. Objective Vitals Vital Signs Date Time Temp Pulse Resp B/P Pulse Ox O2 Delivery O2 Flow Rate FiO2 03/30/16 12:04 98.5 74 24 160/98 98 03/30/16 08:04 98.6 72 24 163/70 98 03/30/16 04:00 98.7 80 14 158/72 97 03/30/16 00:00 97.7 61 18 159/72 98 03/29/16 20:00 97.6 67 16 163/73 97 03/29/16 16:00 98.5 67 20 138/56 93 I/O 03/29/16 03/29/16 03/29/16 03/30/16 03/30/16 03/30/16 07:00 15:00 23:00 07:00 15:00 23:00 Intake Total 742 ml 2396 ml 1159 ml Balance 742 ml 2396 ml 1159 ml Intake Oral 0 ml 960 ml 180 ml IV Total 742 ml 1436 ml 979 ml # Voids 2 4 4 # Bowel Movements 1 0 Result Diagram: 03/30/16 0619 03/30/1619 Objective Remarks GENERAL: Patient is awake and alert, nad CARDIOVASCULAR: Normal rate and regular rhythm without murmurs, gallops, or rubs. RESPIRATORY: Clear to auscultation bilaterally. GASTROINTESTINAL: Abdomen soft, non-tender, non-distended. Normal active bowel sounds NEURO: Alert to self only, does not interact with me today. PSYCH: Calm Medications and IVs Current Medications Medications (Trade) Dose Ordered Sig/Rose Mary Route Start Time Stop Time Status Last Admin (NS Flush) 2 ml UNSCH PRN FLUSH 03/26/16 11:45 (NS Flush) 2 ml BID FLUSH 03/26/16 21:00 03/30/16 09:58 (Tylenol) 650 mg Q4H PRN PO 03/26/16 11:45 (Zofran Inj) 4 mg Q6H PRN IVP 03/26/16 11:45 (Milk Of Magnesia Liq) 30 ml Q12H PRN PO 03/26/16 11:45 (Tylenol) 650 mg Q6H PRN PO 03/26/16 11:45 (D50w (Vial) Inj) 25 ml UNSCH PRN IV PUSH 03/26/16 11:45 Glucagon 1 mg 1 mg UNSCH PRN OTHER 03/26/16 11:45 (Lr 1000 ml Inj) 1,000 ml @ 100 mls/hr Q10H IV 03/29/16 15:00 03/30/16 01:11 (Megace Liq) 400 mg DAILY PO 03/29/16 15:30 03/30/16 09:57 (Lovenox Inj) 40 mg Q24H SQ 03/30/16 09:00 03/30/16 09:57 (K-Phos Neutral) 250 mg Q8HR PO 03/30/16 15:45 Urinary Catheter: No Vascular Central Line Catheter: No A/P Problem List: (1) Acute renal injury ICD Code: N17.9 Status: Acute Plan: 80-year-old male with what appears to be end-stage dementia transferred from psychiatric unit for dehydration, acute kidney injury due to poor oral intake. The patient's close taking back to [place]. Apparently transport has been arranged for him to go back on Thursday. JOSE on CKD stage III is likely due to dehydration and poor oral intake in the psychiatric unit. Continue with IV fluids and monitor renal function. . (2) CKD (chronic kidney disease), stage III ICD Code: N18.3 Status: Chronic Plan: As above. (3) Dementia with behavioral disturbance ICD Code: F03.91 Status: Acute Plan: Patient has long-standing dementia, now not eating or drinking. This is likely end-stage dementia. Seroquel has been discontinued to avoid oversedation. Consults palliative care to help address goals of care. Resume Namenda (4) HTN (hypertension) ICD Code: I10 Status: Chronic Plan: Blood pressure seems to be elevated and uncontrolled. I will increase the Norvasc to 10 minutes by mouth daily. I will also place limiting as needed for systolic blood pressure more than 160. (5) DM (diabetes mellitus) ICD Code: E11.9 Status: Chronic Plan: Continue AzaSite with insulin NovoLog. Blood sugar stable. (6) Debility ICD Code: R53.81 Status: Acute Plan: Patient has physical deconditioning. Physical therapy consulted. Physical therapy recommends PT at rehabilitation and the use of a wheelchair. (7) Moderate protein malnutrition ICD Code: E44.0 Status: Chronic Plan: Due to poor oral intake. Recommended 1999 ADA diet, which is a PhD and encourage by mouth intake. Continue megestrol acetate, the patient still with poor oral intake. Follow-up dietitian recommendations on calorie count. (8) Hypophosphatemia ICD Code: E83.39 Status: Acute Plan: Due to poor oral intake. I will set the patient on oral Neutra-Phos. Continue to monitor phosphorus and other electrolytes. Assessment and Plan DVT prophylaxis: SCDs, Lovenox subcutaneously Discharge Planning Continue to monitor on the medical floor. DC pending palliative care consultation. Stabilization of blood pressure. Problem Qualifiers (1) HTN (hypertension): Qualified Code: I10 - Essential hypertension (2) DM (diabetes mellitus): Qualified Code: E11.8 - Type 2 diabetes mellitus with complication, without long-term current use of insulin Braxton Ruelas MD Mar 30, 2016 15:36
[2016-03-30] MEDS: POTASSIUM PHOSPHATE/SODIUM PHOSPHATE 250 MG TAB PO SCH (15:45)
[2016-03-30 16:04] VITALS: BP 177/71; PULSE 51; RESP 22; TEMP 98.7; O2SAT 97
[2016-03-30 20:00] VITALS: BP 153/67; PULSE 66; RESP 14; TEMP 98.6; O2SAT 96
[2016-03-31] VITALS (7 sets, daily range): BP systolic 136–169; BP diastolic 60–83; PULSE 57–83; RESP 12–20; TEMP 97.6–98.6; O2SAT 92–97
[2016-03-31] MEDS: LACTATED RINGER'S 1000 ML INJ 1,000 ML IV SCH ×4 (00:03→23:15)
[2016-03-31] MEDS: INSULIN ASPART SUPPLEMENTAL SCALE SQ SCH ×5 (00:04→23:30)
[2016-03-31] MEDS: POTASSIUM PHOSPHATE/SODIUM PHOSPHATE 250 MG TAB PO SCH ×5 (00:07→23:17)
[2016-03-31 07:28] LABS: BICARBONATE 21.5 MEQ/L (21.0-32.0)
[2016-03-31 07:34] LABS: POTASSIUM 4.1 MEQ/L (3.5-5.1)
[2016-03-31 07:46] LABS: HEMATOCRIT 32.3 % (39.0-51.0); MEAN CELL VOLUME 86.5 FL (80.0-100.0); MEAN CORPUSCULAR HEMOGLOBIN 28.8 PG (27.0-34.0); MEAN CORPUSCULAR HGB CONC 33.2 % (32.0-36.0); PLATELET COUNT 121 TH/MM3 (150-450); RED BLOOD COUNT 3.73 MIL/MM3 (4.50-5.90); RED CELL DISTRIBUTION WIDTH 13.5 % (11.6-17.2); REVIEW FLAG FINAL; WHITE BLOOD COUNT 10.3 TH/MM3 (4.0-11.0)
[2016-03-31] MEDS: SODIUM CHLORIDE 0.9% FLUSH 5 ML FLUSH FLUSH SCH ×2 (09:00→21:00)
[2016-03-31] MEDS: MEGESTROL ACETATE SUSP 400 MG/10 ML CUP PO SCH (10:25)
[2016-03-31] MEDS: ENOXAPARIN SODIUM 40 MG/0.4 ML SYRINGE SQ SCH ×2 (10:25→14:00)
--- NOTE | 2016-03-31 11:09 | HHI.PR ---
Subjective Remarks Per RN patient has hematuria Patient also ate all breakfast patient seems more alert and awake denies cp/sob patient is confused and talking Bp elevated overnight - better now creatinine trending down Objective Vitals Vital Signs Date Time Temp Pulse Resp B/P Pulse Ox O2 Delivery O2 Flow Rate FiO2 03/31/16 08:00 97.6 72 16 136/60 95 03/31/16 05:00 158/68 03/31/16 04:00 98.6 63 17 161/70 96 03/31/16 00:00 97.7 57 16 158/69 97 03/30/16 20:00 98.6 66 14 153/67 96 03/30/16 16:04 98.7 51 22 177/71 97 03/30/16 12:04 98.5 74 24 160/98 98 I/O 03/30/16 03/30/16 03/30/16 03/31/16 03/31/16 03/31/16 07:00 15:00 23:00 07:00 15:00 23:00 Intake Total 1159 ml 360 ml 120 ml 2410 ml Balance 1159 ml 360 ml 120 ml 2410 ml Intake Oral 180 ml 360 ml 120 ml 80 ml IV Total 979 ml 2330 ml # Voids 4 4 0 5 # Bowel Movements 0 0 0 Result Diagram: 03/31/1661903/31/1620 Objective Remarks GENERAL: Patient is awake and alert, nad, sitting up in chair, talkative CARDIOVASCULAR: Normal rate and regular rhythm without murmurs, gallops, or rubs. RESPIRATORY: Clear to auscultation bilaterally. GASTROINTESTINAL: Abdomen soft, non-tender, non-distended. Normal active bowel sounds NEURO: Alert to self only, does not interact with me today. PSYCH: Calm, very talkative but confused. Medications and IVs Current Medications Medications (Trade) Dose Ordered Sig/Rose Mary Route Start Time Stop Time Status Last Admin (NS Flush) 2 ml UNSCH PRN FLUSH 03/26/16 11:45 (NS Flush) 2 ml BID FLUSH 03/26/16 21:00 03/31/16 09:00 (Tylenol) 650 mg Q4H PRN PO 03/26/16 11:45 (Zofran Inj) 4 mg Q6H PRN IVP 03/26/16 11:45 (Milk Of Magnesia Liq) 30 ml Q12H PRN PO 03/26/16 11:45 (Tylenol) 650 mg Q6H PRN PO 03/26/16 11:45 (D50w (Vial) Inj) 25 ml UNSCH PRN IV PUSH 03/26/16 11:45 Glucagon 1 mg 1 mg UNSCH PRN OTHER 03/26/16 11:45 (Lr 1000 ml Inj) 1,000 ml @ 100 mls/hr Q10H IV 03/29/16 15:00 03/31/16 10:27 (Megace Liq) 400 mg DAILY PO 03/29/16 15:30 03/31/16 10:25 (Lovenox Inj) 40 mg Q24H SQ 03/30/16 09:00 03/31/16 10:25 (K-Phos Neutral) 250 mg Q8HR PO 03/30/16 15:45 03/31/16 05:44 Urinary Catheter: No Vascular Central Line Catheter: No A/P Problem List: (1) Acute renal injury ICD Code: N17.9 Status: Resolved Plan: 80-year-old male with what appears to be end-stage dementia transferred from psychiatric unit for dehydration, acute kidney injury due to poor oral intake. The patient's close taking back to [place]. Apparently transport has been arranged for him to go back on Thursday. JOSE on CKD stage III is likely due to dehydration and poor oral intake in the psychiatric unit. Continue with IV fluids and monitor renal function. 03/31 Creatinine trending down from 1.63-1.41, good urine output. Continue IV normal saline and to monitor BUN and creatinine. . (2) CKD (chronic kidney disease), stage III ICD Code: N18.3 Status: Chronic Plan: As above. (3) Dementia with behavioral disturbance ICD Code: F03.91 Status: Acute Plan: Patient has long-standing dementia, now not eating or drinking. This is likely end-stage dementia. Seroquel has been discontinued to avoid oversedation. Consults palliative care to help address goals of care. continue Namenda. (4) HTN (hypertension) ICD Code: I10 Status: Chronic Plan: BP elevated on 03/30 - dose of amlodipine was increased to 10 mg po daily Bp now much better, continue to monitor vital signs clonidine prn. (5) DM (diabetes mellitus) ICD Code: E11.9 Status: Chronic Plan: Continue AzaSite with insulin NovoLog. Blood sugar stable. (6) Debility ICD Code: R53.81 Status: Acute Plan: Patient has physical deconditioning. Physical therapy consulted. Physical therapy recommends PT at rehabilitation and the use of a wheelchair. (7) Moderate protein malnutrition ICD Code: E44.0 Status: Chronic Plan: Due to poor oral intake. Recommended 1999 ADA diet, which is a PhD and encourage by mouth intake. Continue megestrol acetate, the patient still with poor oral intake. appreciate diet recommendations - Calorie count under way from 03/31 to 04/02 (8) Hypophosphatemia ICD Code: E83.39 Status: Acute Plan: Likely due to previous poor oral intake. Started the patient on Neutra- Phos on 2016. Hypophosphatemia resolved with phosphorus 2.5. Continue Neutra-Phos for today. (9) Hematuria ICD Code: R31.9 Status: Acute Plan: Reported hematuria by RN. Will DC heparin SQ. Check urinalysis. Assessment and Plan DVT prophylaxis: SCDs, DC lovenox due to hematuria. Discharge Planning Continue to monitor on the medical floor. DC pending palliative care consultation. Stabilization of blood pressure. Problem Qualifiers (1) HTN (hypertension): Qualified Code: I10 - Essential hypertension (2) DM (diabetes mellitus): Qualified Code: E11.8 - Type 2 diabetes mellitus with complication, without long-term current use of insulin Braxton Ruelas MD Mar 31, 2016 11:09
--- NOTE | 2016-03-31 11:38 | HHI.HCPN ---
Reason for visit a. To assist with evaluation and management of symptoms including: debility and decreased oral intake. b. To assist medical decision maker(s) with: better understanding of current medical conditions; weighing benefits/burdens of medical treatment options; making medical treatment decisions. Mr. Fields is well-known to palliative care services, originally seen on . Palliative care reconsulted for further clarifications of goals of care in the setting of patient's progressive cognitive and physical decline and poor prognosis for an improved quality of life or long-term survival. . Subjective/Interval History Mr. Fields is an 80 y/o male with a medical history significant for Alzheimer's dementia with behavioral disturbances, HTN, diabetes mellitus type 2 and CKD. Patient presented to the ED on 03/08/16 secondary to aggressive behavior towards his , patient was placed under Kramer Act and evaluated by psychiatry. It was reported that prior to presented to the ED, patient became very aggressive towards his . Upon immediate presentation, patient was noted to be severely hypertensive with SBP in the 220s and was in the observation unit secondary to hypertensive crisis. Patient was admitted to the psychiatric floor from 03/08/16 to 03/25/16 and transfer to the medical floor on 03/25/16 secondary to dehydration and poor by mouth intake. While on the medical floor, Seroquel was stopped secondary to sedation. Patient's renal failure has been improved with IV hydration, BUN/creatinine 33/1.41. As per prior history obtained from , patient has been suffering with dementia for the last 3-4 years, with worsening cognitive and functional decline in the past 6 months. His has been his primary caregiver. At time of admission, reported that she was no longer able to care for him and required some professional assistance. While admitted in the psychiatric floor, family verbalized that they did not want to proceed with aggressive treatment for patient and requested a no CODE STATUS. At that time, reported that patient was to be transferred to a [facility] facility in [place], [place] on 04/05/16. Telephone call to patient's stephani Mitchell message on voicemail. Palliative care to review concerns regarding patient's progressive functional and cognitive decline secondary to severe dementia. 16:12. Telephone call to patient's . Left another message in VM. Palliative care to cont attempting at schedule meeting with pt's . . Family/friend interactions See interval note. Advance Directives Living Will: Never completed Health Care Surrogate: Never completed Durable Power of Assembly Line Driver: Never completed Advance Directive Specifics Health Care Surrogate(s): As per [place] statute, healthcare proxy decision falls to his , Paula Fields. . Documented care wishes: No living will has been completed. . Significant change in goals: NO CODE. Continue current medical plan of care for symptom management with the goal of transferring patient to a fci facility in [place], [place]. . Objective Vital Signs Date Time Temp Pulse Resp B/P Pulse Ox O2 Delivery O2 Flow Rate FiO2 03/31/16 08:00 97.6 72 16 136/60 95 03/31/16 05:00 158/68 03/31/16 04:00 98.6 63 17 161/70 96 03/31/16 00:00 97.7 57 16 158/69 97 03/30/16 20:00 98.6 66 14 153/67 96 03/30/16 16:04 98.7 51 22 177/71 97 03/30/16 12:04 98.5 74 24 160/98 98 Intake & Output 03/31/16 03/31/16 07:00 19:00 Intake Total 2530 ml Balance 2530 ml Intake Oral 200 ml IV Total 2330 ml # Voids 5 # Bowel Movements 0 Physical Exam CONSTITUTIONAL/GENERAL: This is an elderly man in no apparent distress. Alert to self, following commands. SKIN: Pale. No jaundice. Ecchymoses on upper extremities. Dry scabs on bilateral arms and right knee. Skin temperature appropriate. Not diaphoretic. Dry skin. HEAD: Atraumatic. Normocephalic. EYES: Reactive to light. No icterus. ENT: Appears normal hearing.. Nose without bleeding or purulent drainage. Mouth without lesions. NECK: Trachea midline. Supple, nontender. CARDIOVASCULAR: Regular rate and rhythm. Peripheral pulses symmetric. Ankle edema bilaterally. RESPIRATORY/CHEST: Symmetric, unlabored respirations. Diminished, Clear to auscultation. Breath sounds equal bilaterally. GASTROINTESTINAL: Abdomen soft, non-tender, nondistended. Bowel sounds present. GENITOURINARY: Without palpable bladder distension. MUSCULOSKELETAL: Extremities without clubbing, or mottling. NEUROLOGICAL: Alert to self, verbal but not always able to communicate needs secondary to confusion/dementia. Following commands. Pleasant and cooperative. PSYCHIATRIC: Calm. Diagnostic Tests Laboratory Laboratory Tests Test 03/29/16 03/29/16 03/30/16 03/30/16 07:17 16:04 06:19 07:19 Sodium Level 143 MEQ/L 145 MEQ/L (136-145) (136-145) Potassium Level 4.9 MEQ/L 4.0 MEQ/L (3.5-5.1) (3.5-5.1) Chloride Level 116 MEQ/L 115 MEQ/L (98-107) (98-107) Carbon Dioxide Level 17.5 MEQ/L 23.6 MEQ/L (21.0-32.0) (21.0-32.0) Anion Gap 10 MEQ/L (5-15) 6 MEQ/L (5-15) Blood Urea Nitrogen 37 MG/DL (7-18) 39 MG/DL (7-18) Creatinine 1.60 MG/DL 1.63 MG/DL (0.60-1.30) (0.60-1.30) Estimat Glomerular Filtration 42 ML/MIN (>89) 41 ML/MIN (>89) Rate Random Glucose 101 MG/DL 95 MG/DL (74-106) (74-106) Calcium Level 8.4 MG/DL 8.2 MG/DL (8.5-10.1) (8.5-10.1) Urine Color YELLOW (YELLW/STRAW) Urine Turbidity CLEAR (CLEAR) Urine pH 5.5 (5.0-8.5) Urine Specific Sayre 1.017 (1.002-1.035) Urine Protein NEG mg/dL (NEG-TRACE) Urine Glucose (UA) NEG mg/dL (NEG) Urine Ketones 10 mg/dL (NEG) Urine Occult Blood TRACE (NEG) Urine Nitrite NEG (NEG) Urine Bilirubin NEG (NEG) Urine Urobilinogen LESS THAN 2.0 MG/DL (LESS THAN 2.0) Urine Leukocyte Esterase NEG (NEG) Urine RBC 3 /hpf (0-3) Urine WBC LESS THAN 1 /hpf (0-5) Urine Mucus FEW /lpf (OCC) Microscopic Urinalysis Comment CULT NOT INDICATED White Blood Count 7.7 TH/MM3 (4.0-11.0) Red Blood Count 3.50 MIL/MM3 (4.50-5.90) Hemoglobin 10.0 GM/DL (13.0-17.0) Hematocrit 29.5 % (39.0-51.0) Mean Corpuscular Volume 84.2 FL (80.0-100.0) Mean Corpuscular Hemoglobin 28.5 PG (27.0-34.0) Mean Corpuscular Hemoglobin 33.8 % Concent (32.0-36.0) Red Cell Distribution Width 13.4 % (11.6-17.2) Platelet Count 123 TH/MM3 (150-450) Mean Platelet Volume 7.5 FL (7.0-11.0) Neutrophils (%) (Auto) 75.7 % (16.0-70.0) Lymphocytes (%) (Auto) 15.0 % (9.0-44.0) Monocytes (%) (Auto) 8.0 % (0.0-8.0) Eosinophils (%) (Auto) 1.1 % (0.0-4.0) Basophils (%) (Auto) 0.2 % (0.0-2.0) Neutrophils # (Auto) 5.8 TH/MM3 (1.8-7.7) Lymphocytes # (Auto) 1.2 TH/MM3 (1.0-4.8) Monocytes # (Auto) 0.6 TH/MM3 (0-0.9) Eosinophils # (Auto) 0.1 TH/MM3 (0-0.4) Basophils # (Auto) 0.0 TH/MM3 (0-0.2) CBC Comment DIFF FINAL Differential Comment Phosphorus Level 1.7 MG/DL (2.5-4.9) Magnesium Level 2.0 MG/DL (1.5-2.5) Total Bilirubin 0.4 MG/DL (0.2-1.0) Aspartate Amino Transf 36 U/L (15-37) (AST/SGOT) Alanine Aminotransferase 49 U/L (12-78) (ALT/SGPT) Alkaline Phosphatase 104 U/L (45-117) Total Protein 5.0 GM/DL (6.4-8.2) Albumin 2.3 GM/DL (3.4-5.0) Test 03/31/16 06:20 White Blood Count 10.3 TH/MM3 (4.0-11.0) Red Blood Count 3.73 MIL/MM3 (4.50-5.90) Hemoglobin 10.7 GM/DL (13.0-17.0) Hematocrit 32.3 % (39.0-51.0) Mean Corpuscular Volume 86.5 FL (80.0-100.0) Mean Corpuscular Hemoglobin 28.8 PG (27.0-34.0) Mean Corpuscular Hemoglobin 33.2 % Concent (32.0-36.0) Red Cell Distribution Width 13.5 % (11.6-17.2) Platelet Count 121 TH/MM3 (150-450) Mean Platelet Volume 8.7 FL (7.0-11.0) Sodium Level 143 MEQ/L (136-145) Potassium Level 4.1 MEQ/L (3.5-5.1) Chloride Level 112 MEQ/L (98-107) Carbon Dioxide Level 21.5 MEQ/L (21.0-32.0) Anion Gap 10 MEQ/L (5-15) Blood Urea Nitrogen 33 MG/DL (7-18) Creatinine 1.41 MG/DL (0.60-1.30) Estimat Glomerular Filtration 48 ML/MIN (>89) Rate Random Glucose 93 MG/DL (74-106) Calcium Level 8.3 MG/DL (8.5-10.1) Phosphorus Level 2.5 MG/DL (2.5-4.9) Magnesium Level 2.0 MG/DL (1.5-2.5) Result Diagram: 03/31/16 0620 03/31/16 0620 Assessment and Plan Disease Oriented Problem List: (1) Dementia with behavioral disturbance (2) CKD (chronic kidney disease), stage III (3) HTN (hypertension) (4) Moderate protein malnutrition Symptom Scale: (1) Debility 0-10 Scale: Unable to quantify Comment: Progressive secondary to severe dementia. (2) Decreased oral intake 0-10 Scale: Unable to quantify Pertinent Non-Medical Issues Psychosocial: , has 3 children. Spiritual: No tenriism affiliation. Legal: No living will completed. Ethical issues impacting care: No ethical issues have been identified. . Important Contacts Paula Fields [phone]. . Prognosis Mr. Fields is an 80 y/o male with a medical history significant for Alzheimer's dementia with behavioral disturbances, HTN, diabetes mellitus type 2 and CKD. Patient presented to the ED on 03/08/16 secondary to aggressive behavior towards his , patient was placed under Kramer Act and evaluated by psychiatry. Patient at high risk for complications, continued decline and . Patient's overall prognosis is poor and improved quality of life or long-term survival given his age, pre-existing functional status, advanced dementia, and multiple chronic comorbidities. Patient appears hospice appropriate, however, not in line with family's goals of care. . Code Status: No Code Plan * CODE STATUS: NO CODE -DNR/DNI. * Decision-making capacity: Patient incapacitated to make medical decisions secondary to severe Alzheimer's dementia. As per [place] statute, healthcare proxy decision falls to his , Paula Fields. * GOALS OF CARE: NO CODE. As per , continue at medical management with the goal of transfer patient to SNF in [place], [place]. Several attempts today at scheduling meeting with pt's . Palliative care to discuss progression of dementia for goals of care clarification. * SYMPTOMS: == Debility: Progressive over the past 4 years secondary to dementia. Patient is a total care. PPS 30%. == Decrease oral intake/protein malnutrition. On high caloric diet and Megace. * Case discussed with bedside RN. * Palliative care contact information has been provided to patient's . * Palliative care will continue to follow-up for further clarification of goals. . Time Spent Total Floor Time (mins): 32 (Total time to include review and summarization of available medical records to include prior psych hospitalization, physical exam , tc to pt's x2 and case discussion with bedside RN. ) >50% Counseling/Coord of Care: Yes Attestation To help prompt me to consider important information that might be impacting today's encounter and assessment, information from prior notes written by myself or my colleagues may have been "brought forward" into today's note. My signature on this note, however, is an attestation that I personally performed the exam, history, and/or decision-making noted today, and, unless otherwise indicated, the interactions with patient, family, and staff as well as the review of records all occurred today. I also attest that the listed assessment and stated plan reflect my best clinical judgment today based on the combination of historical information, prior notes, and today's exam/ interactions. When time spent is documented, it refers only to time spent today by the signer, or if indicated, combined time spent today by collaborating physician/nurse practitioner. Angela Ellis Mar 31, 2016 11:38
[2016-03-31 19:30] LABS: BACTERIA, URINE FEW /hpf; BLOOD, URINE LARGE (NEG); COMMENT (UR) CATH-CULTURE IND; CULTURE IF INDICATED CATH CULTURE IND; GLUCOSE,URINE 70 mg/dL (NEG); KETONE, URINE NEG (NEG); NITRITE,URINE NEG (NEG); PH, URINE 7.5 (5.0-8.5)
[2016-03-31 19:31] LABS: URINE COLOR DARK-RED (YELLW/STRAW)
[2016-04-01 01:59] VITALS: BP 155/71; PULSE 71; RESP 16; TEMP 97.5; O2SAT 97
[2016-04-01] MEDS: POTASSIUM PHOSPHATE/SODIUM PHOSPHATE 250 MG TAB PO SCH ×3 (05:29→21:03)
[2016-04-01] MEDS: INSULIN ASPART SUPPLEMENTAL SCALE SQ SCH ×4 (05:29→21:03)
[2016-04-01 06:36] VITALS: BP 158/70; PULSE 75; RESP 18; TEMP 99.8; O2SAT 97
[2016-04-01 08:00] VITALS: BP 163/66; PULSE 56; RESP 16; TEMP 98.7; O2SAT 96
[2016-04-01] MEDS: MEGESTROL ACETATE SUSP 400 MG/10 ML CUP PO SCH (09:25)
[2016-04-01] MEDS: SODIUM CHLORIDE 0.9% FLUSH 5 ML FLUSH FLUSH SCH ×2 (09:25→21:00)
[2016-04-01 09:40] LABS: HEMATOCRIT 31.3 % (39.0-51.0); MEAN CELL VOLUME 83.9 FL (80.0-100.0); MEAN CORPUSCULAR HEMOGLOBIN 28.7 PG (27.0-34.0); MEAN CORPUSCULAR HGB CONC 34.2 % (32.0-36.0); PLATELET COUNT 123 TH/MM3 (150-450); RED BLOOD COUNT 3.73 MIL/MM3 (4.50-5.90); RED CELL DISTRIBUTION WIDTH 13.3 % (11.6-17.2); REVIEW FLAG FINAL; WHITE BLOOD COUNT 10.9 TH/MM3 (4.0-11.0)
[2016-04-01 10:02] LABS: MAGNESIUM 1.9 MG/DL (1.5-2.5); POTASSIUM 3.9 MEQ/L (3.5-5.1)
[2016-04-01 12:00] VITALS: BP 150/91; PULSE 74; RESP 16; TEMP 98.2; O2SAT 96
--- NOTE | 2016-04-01 15:07 | HHI.HCPN ---
Reason for visit a. To assist with evaluation and management of symptoms including: debility and decreased oral intake. b. To assist medical decision maker(s) with: better understanding of current medical conditions; weighing benefits/burdens of medical treatment options; making medical treatment decisions. . Subjective/Interval History Patient seen in his room. He was sitting up in bed in no acute distress. Awake , alert, following some commands. Pleasant and cooperative. Verbal but not always able to communicate needs secondary to confusion. Denies pain, nausea vomiting, or any discomfort. No family at bedside. No acute events overnight. Max temperature today 99.8, hypertensive with SBP in the 150s-160s. Tolerating room air with O2 sats in the mid 90s. Labs today to include WBC 10.9 , Hgb 10.7, platelet count 123. Sodium 142, potassium 3.9, BUN/creatinine 30/ 1.39. No new imaging. Patient on high calorie count diet, eating between 50- 100% of his meals. Participating in PT, requires maximum assistance x2 people with transfers. Telephone call to patient's Paulastephani message on voicemail. Several attempts at contacting patient's , unsuccessful. Palliative care will continue to follow-up. . Family/friend interactions See interval note. . Advance Directives Living Will: Never completed Health Care Surrogate: Never completed Durable Power of Baler: Never completed Advance Directive Specifics Health Care Surrogate(s): As per [place] statute, healthcare proxy decision falls to his , Paula Fields. . Documented care wishes: No living will has been completed. . Significant change in goals: No code. Continue current medical management with a goal of transfer patient to detention facility in [place], [place]. . Objective Vital Signs Date Time Temp Pulse Resp B/P Pulse Ox O2 Delivery O2 Flow Rate FiO2 04/01/16 12:00 98.2 74 16 150/91 96 04/01/16 08:00 98.7 56 16 163/66 96 04/01/16 06:36 99.8 75 18 158/70 97 04/01/16 01:59 97.5 71 16 155/71 97 03/31/16 21:24 97.9 65 20 169/65 94 03/31/16 20:00 Room Air 03/31/16 16:00 98.4 67 12 168/74 97 Intake & Output 04/01/16 04/01/16 06:59 18:59 # Voids 1 # Bowel Movements 0 Physical Exam CONSTITUTIONAL/GENERAL: This is an elderly man in no apparent distress. Alert to self, following commands. Pleasant. SKIN: Pale. No jaundice. Ecchymoses on upper extremities. Dry scabs on bilateral arms and right knee. Skin temperature appropriate. Not diaphoretic. Dry skin. HEAD: Atraumatic. Normocephalic. EYES: Reactive to light. No icterus. ENT: Appears normal hearing. Nose without bleeding or purulent drainage. Mouth without lesions. NECK: Trachea midline. Supple, nontender. CARDIOVASCULAR: Regular rate and rhythm. Peripheral pulses symmetric. Ankle edema bilaterally. RESPIRATORY/CHEST: Symmetric, unlabored respirations. Diminished, Clear to auscultation. Breath sounds equal bilaterally. GASTROINTESTINAL: Abdomen soft, non-tender, nondistended. Bowel sounds present. MUSCULOSKELETAL: Extremities without clubbing, or mottling. NEUROLOGICAL: Alert to self, verbal but not always able to communicate needs secondary to confusion/dementia. Following commands. Pleasant and cooperative. PSYCHIATRIC: Calm. . Diagnostic Tests Laboratory Laboratory Tests Test 03/29/16 03/30/16 03/30/16 03/31/16 16:04 06:19 07:19 06:20 Urine Color YELLOW (YELLW/STRAW) Urine Turbidity CLEAR (CLEAR) Urine pH 5.5 (5.0-8.5) Urine Specific [place] 1.017 (1.002-1.035) Urine Protein NEG mg/dL (NEG-TRACE) Urine Glucose (UA) NEG mg/dL (NEG) Urine Ketones 10 mg/dL (NEG) Urine Occult Blood TRACE (NEG) Urine Nitrite NEG (NEG) Urine Bilirubin NEG (NEG) Urine Urobilinogen LESS THAN 2.0 MG/DL (LESS THAN 2.0) Urine Leukocyte Esterase NEG (NEG) Urine RBC 3 /hpf (0-3) Urine WBC LESS THAN 1 /hpf (0-5) Urine Mucus FEW /lpf (OCC) Microscopic Urinalysis Comment CULT NOT INDICATED White Blood Count 7.7 TH/MM3 10.3 TH/MM3 (4.0-11.0) (4.0-11.0) Red Blood Count 3.50 MIL/MM3 3.73 MIL/MM3 (4.50-5.90) (4.50-5.90) Hemoglobin 10.0 GM/DL 10.7 GM/DL (13.0-17.0) (13.0-17.0) Hematocrit 29.5 % 32.3 % (39.0-51.0) (39.0-51.0) Mean Corpuscular Volume 84.2 FL 86.5 FL (80.0-100.0) (80.0-100.0) Mean Corpuscular Hemoglobin 28.5 PG 28.8 PG (27.0-34.0) (27.0-34.0) Mean Corpuscular Hemoglobin 33.8 % 33.2 % Concent (32.0-36.0) (32.0-36.0) Red Cell Distribution Width 13.4 % 13.5 % (11.6-17.2) (11.6-17.2) Platelet Count 123 TH/MM3 121 TH/MM3 (150-450) (150-450) Mean Platelet Volume 7.5 FL 8.7 FL (7.0-11.0) (7.0-11.0) Neutrophils (%) (Auto) 75.7 % (16.0-70.0) Lymphocytes (%) (Auto) 15.0 % (9.0-44.0) Monocytes (%) (Auto) 8.0 % (0.0-8.0) Eosinophils (%) (Auto) 1.1 % (0.0-4.0) Basophils (%) (Auto) 0.2 % (0.0-2.0) Neutrophils # (Auto) 5.8 TH/MM3 (1.8-7.7) Lymphocytes # (Auto) 1.2 TH/MM3 (1.0-4.8) Monocytes # (Auto) 0.6 TH/MM3 (0-0.9) Eosinophils # (Auto) 0.1 TH/MM3 (0-0.4) Basophils # (Auto) 0.0 TH/MM3 (0-0.2) CBC Comment DIFF FINAL Differential Comment Sodium Level 145 MEQ/L 143 MEQ/L (136-145) (136-145) Potassium Level 4.0 MEQ/L 4.1 MEQ/L (3.5-5.1) (3.5-5.1) Chloride Level 115 MEQ/L 112 MEQ/L (98-107) (98-107) Carbon Dioxide Level 23.6 MEQ/L 21.5 MEQ/L (21.0-32.0) (21.0-32.0) Anion Gap 6 MEQ/L (5-15) 10 MEQ/L (5-15) Blood Urea Nitrogen 39 MG/DL (7-18) 33 MG/DL (7-18) Creatinine 1.63 MG/DL 1.41 MG/DL (0.60-1.30) (0.60-1.30) Estimat Glomerular Filtration 41 ML/MIN (>89) 48 ML/MIN (>89) Rate Random Glucose 95 MG/DL 93 MG/DL (74-106) (74-106) Calcium Level 8.2 MG/DL 8.3 MG/DL (8.5-10.1) (8.5-10.1) Phosphorus Level 1.7 MG/DL 2.5 MG/DL (2.5-4.9) (2.5-4.9) Magnesium Level 2.0 MG/DL 2.0 MG/DL (1.5-2.5) (1.5-2.5) Total Bilirubin 0.4 MG/DL (0.2-1.0) Aspartate Amino Transf 36 U/L (15-37) (AST/SGOT) Alanine Aminotransferase 49 U/L (12-78) (ALT/SGPT) Alkaline Phosphatase 104 U/L (45-117) Total Protein 5.0 GM/DL (6.4-8.2) Albumin 2.3 GM/DL (3.4-5.0) Test 03/31/16 04/01/16 19:00 07:53 Urine Color DARK-RED (YELLW/STRAW) Urine Turbidity CLOUDY (CLEAR) Urine pH 7.5 (5.0-8.5) Urine Specific [place] 1.022 (1.002-1.035) Urine Protein 300 mg/dL (NEG-TRACE) Urine Glucose (UA) 70 mg/dL (NEG) Urine Ketones NEG mg/dL (NEG) Urine Occult Blood LARGE (NEG) Urine Nitrite NEG (NEG) Urine Bilirubin NEG (NEG) Urine Urobilinogen LESS THAN 2.0 MG/DL (LESS THAN 2.0) Urine Leukocyte Esterase LARGE (NEG) Urine RBC /hpf (0-3) Urine WBC /hpf (0-5) Urine Bacteria FEW /hpf (NONE) Microscopic Urinalysis Comment CATH-CULTURE IND White Blood Count 10.9 TH/MM3 (4.0-11.0) Red Blood Count 3.73 MIL/MM3 (4.50-5.90) Hemoglobin 10.7 GM/DL (13.0-17.0) Hematocrit 31.3 % (39.0-51.0) Mean Corpuscular Volume 83.9 FL (80.0-100.0) Mean Corpuscular Hemoglobin 28.7 PG (27.0-34.0) Mean Corpuscular Hemoglobin 34.2 % Concent (32.0-36.0) Red Cell Distribution Width 13.3 % (11.6-17.2) Platelet Count 123 TH/MM3 (150-450) Mean Platelet Volume 8.8 FL (7.0-11.0) Sodium Level 142 MEQ/L (136-145) Potassium Level 3.9 MEQ/L (3.5-5.1) Chloride Level 110 MEQ/L (98-107) Carbon Dioxide Level 25.0 MEQ/L (21.0-32.0) Anion Gap 7 MEQ/L (5-15) Blood Urea Nitrogen 30 MG/DL (7-18) Creatinine 1.39 MG/DL (0.60-1.30) Estimat Glomerular Filtration 49 ML/MIN (>89) Rate Random Glucose 117 MG/DL (74-106) Calcium Level 8.2 MG/DL (8.5-10.1) Phosphorus Level 2.8 MG/DL (2.5-4.9) Magnesium Level 1.9 MG/DL (1.5-2.5) Result Diagram: 04/01/16 0753 04/01/16 0753 Microbiology Microbiology Date/Time Procedure Status Source Growth 03/31/16 19:00 Urine Culture - Preliminary Resulted Urine Catheterized Urine Gram Negative Abhijit Assessment and Plan Disease Oriented Problem List: (1) Dementia with behavioral disturbance (2) CKD (chronic kidney disease), stage III (3) HTN (hypertension) (4) Moderate protein malnutrition Symptom Scale: (1) Debility 0-10 Scale: Unable to quantify Comment: Progressive secondary to severe dementia. (2) Decreased oral intake 0-10 Scale: Unable to quantify Comment: Currently on high calorie count diet. Eating between 50-100% of his meals. Pertinent Non-Medical Issues Psychosocial: , has 3 children. Spiritual: No latter-day affiliation. Legal: No living will completed. Ethical issues impacting care: No ethical issues have been identified. . Important Contacts Paula Fields [phone]. . Prognosis Mr. Fields is an 80 y/o male with a medical history significant for Alzheimer's dementia with behavioral disturbances, HTN, diabetes mellitus type 2 and CKD. Patient presented to the ED on 03/08/16 secondary to aggressive behavior towards his , patient was placed under [facility] and evaluated by psychiatry. Patient at high risk for complications, continued decline and . Patient's overall prognosis is poor and improved quality of life or long-term survival given his age, pre-existing functional status, advanced dementia, and multiple chronic comorbidities. Patient appears hospice appropriate, however, not in line with family's goals of care. . Code Status: No Code Plan * CODE STATUS: NO CODE -DNR/DNI. * Decision-making capacity: Patient incapacitated to make medical decisions secondary to severe Alzheimer's dementia. As per [place] statute, healthcare proxy decision falls to his , Paula Fields. * GOALS OF CARE: NO CODE. As per , continue at medical management with the goal of transfer patient to SNF in [place], [place]. Several attempts today at scheduling meeting with pt's . Palliative care to discuss progression of dementia for goals of care clarification. * SYMPTOMS: == Debility: Progressive over the past 4 years secondary to dementia. Patient is a total care. PPS 30%. == Decrease oral intake/protein malnutrition. On high caloric diet. Daily Megace. Eating 50-100% of his meals. * Palliative care contact information has been provided to patient's . * Palliative care will continue to follow-up for further clarification of goals. . Time Spent Total Floor Time (mins): 30 (Total time to include review of medical records, physical exam and several phone calls to patient's .) Face to Face Time (mins): 25 >50% Counseling/Coord of Care: Yes Attestation To help prompt me to consider important information that might be impacting today's encounter and assessment, information from prior notes written by myself or my colleagues may have been "brought forward" into today's note. My signature on this note, however, is an attestation that I personally performed the exam, history, and/or decision-making noted today, and, unless otherwise indicated, the interactions with patient, family, and staff as well as the review of records all occurred today. I also attest that the listed assessment and stated plan reflect my best clinical judgment today based on the combination of historical information, prior notes, and today's exam/ interactions. When time spent is documented, it refers only to time spent today by the signer, or if indicated, combined time spent today by collaborating physician/nurse practitioner. Angela Ellis Apr 01, 2016 15:07
[2016-04-01 16:00] VITALS: BP 115/89; PULSE 80; RESP 16; TEMP 99; O2SAT 93
--- NOTE | 2016-04-01 18:42 | HHI.PR ---
Subjective Remarks Bp very elevated for most of the day patient mumbles words no reports of diarrhea as per RN report , patient still not eating. Objective Vitals Vital Signs Date Time Temp Pulse Resp B/P Pulse Ox O2 Delivery O2 Flow Rate FiO2 04/01/16 16:00 99.0 80 16 115/89 93 04/01/16 12:00 98.2 74 16 150/91 96 04/01/16 08:00 96 Room Air 04/01/16 08:00 98.7 56 16 163/66 96 04/01/16 06:36 99.8 75 18 158/70 97 04/01/16 01:59 97.5 71 16 155/71 97 03/31/16 21:24 97.9 65 20 169/65 94 03/31/16 20:00 Room Air I/O 03/31/16 03/31/16 03/31/16 04/01/16 04/01/16 04/01/16 07:00 15:00 23:00 07:00 15:00 23:00 Intake Total 2410 ml Balance 2410 ml Intake Oral 80 ml IV Total 2330 ml # Voids 5 1 # Bowel Movements 0 Result Diagram: 04/01/16 0753 04/01/16 0753 Objective Remarks GENERAL: Patient is awake and alert, nad, sitting up in chair, talkative CARDIOVASCULAR: Normal rate and regular rhythm without murmurs, gallops, or rubs. RESPIRATORY: Clear to auscultation bilaterally. GASTROINTESTINAL: Abdomen soft, non-tender, non-distended. Normal active bowel sounds NEURO: Alert to self only, does not interact with me today. PSYCH: Calm, very talkative but confused. Medications and IVs Current Medications Medications (Trade) Dose Ordered Sig/Rose Mary Route Start Time Stop Time Status Last Admin (NS Flush) 2 ml UNSCH PRN FLUSH 03/26/16 11:45 (NS Flush) 2 ml BID FLUSH 03/26/16 21:00 04/01/16 09:25 (Tylenol) 650 mg Q4H PRN PO 03/26/16 11:45 (Zofran Inj) 4 mg Q6H PRN IVP 03/26/16 11:45 (Milk Of Magnesia Liq) 30 ml Q12H PRN PO 03/26/16 11:45 (Tylenol) 650 mg Q6H PRN PO 03/26/16 11:45 03/31/16 12:09 (D50w (Vial) Inj) 25 ml UNSCH PRN IV PUSH 03/26/16 11:45 Glucagon 1 mg 1 mg UNSCH PRN OTHER 03/26/16 11:45 (Lr 1000 ml Inj) 1,000 ml @ 100 mls/hr Q10H IV 03/29/16 15:00 03/31/16 23:15 (Megace Liq) 400 mg DAILY PO 03/29/16 15:30 04/01/16 09:25 (Lovenox Inj) 40 mg Q24H SQ 03/30/16 09:00 03/30/16 09:57 Potassium Phos/ Sodium Phos 250 mg 250 mg Q8HR PO 03/30/16 15:45 04/01/16 14:00 (Rocephin Inj/NS Inj) 100 ml @ 200 mls/hr Q24H IV 04/01/16 18:45 UNV Urinary Catheter: No Vascular Central Line Catheter: No A/P Problem List: (1) Acute renal injury ICD Code: N17.9 Status: Resolved (2) CKD (chronic kidney disease), stage III ICD Code: N18.3 Status: Chronic (3) Dementia with behavioral disturbance ICD Code: F03.91 Status: Acute (4) HTN (hypertension) ICD Code: I10 Status: Chronic (5) DM (diabetes mellitus) ICD Code: E11.9 Status: Chronic (6) Debility ICD Code: R53.81 Status: Acute (7) Moderate protein malnutrition ICD Code: E44.0 Status: Chronic (8) Hypophosphatemia ICD Code: E83.39 Status: Acute (9) Hematuria ICD Code: R31.9 Status: Acute Assessment and Plan (1) Acute renal injury Plan: 80-year-old male with what appears to be end-stage dementia transferred from psychiatric unit for dehydration, acute kidney injury due to poor oral intake. The patient's close taking back to [place]. Apparently transport has been arranged for him to go back on Thursday. JOSE on CKD stage III is likely due to dehydration and poor oral intake in the psychiatric unit. Continue with IV fluids and monitor renal function. 03/31 Creatinine trending down from 1.63-1.41, good urine output. Continue IV normal saline and to monitor BUN and creatinine. . (2) CKD (chronic kidney disease), stage III Plan: As above. (3) Dementia with behavioral disturbance Plan: Patient has long-standing dementia, now not eating or drinking. This is likely end-stage dementia. Seroquel has been discontinued to avoid oversedation. Consults palliative care to help address goals of care. continue Namenda. (4) HTN (hypertension) Plan: BP elevated on 03/30 - dose of amlodipine was increased to 10 mg po daily Bp still uncontrolled - will start patient on cardura 2 mg at bedtime. Continue with clonidine prn. (5) DM (diabetes mellitus) Plan: Continue AzaSite with insulin NovoLog. Blood sugar stable. (6) Debility Plan: Patient has physical deconditioning. Physical therapy consulted. Physical therapy recommends PT at rehabilitation and the use of a wheelchair. (7) Moderate protein malnutrition ICD Code: E44.0 Status: Chronic Plan: Due to poor oral intake. Recommended 1999 ADA diet, which is a PhD and encourage by mouth intake. Continue megestrol acetate, the patient still with poor oral intake. appreciate diet recommendations - Calorie count under way from 03/31 to 04/02 (8) Hypophosphatemia Plan: Likely due to previous poor oral intake. Started the patient on Neutra- Phos on 2016. Hypophosphatemia resolved with phosphorus 2.5. (9) Hematuria Plan: Reported hematuria by RN. Will DC heparin SQ. UA (+) - start the patient on Rocephin and fu urine culture. DVT prophylaxis: SCDs, DC lovenox due to hematuria. Discharge Planning Continue to monitor on the medical floor. DC pending palliative care consultation. Stabilization of blood pressure. Problem Qualifiers (1) HTN (hypertension): Qualified Code: I10 - Essential hypertension (2) DM (diabetes mellitus): Qualified Code: E11.8 - Type 2 diabetes mellitus with complication, without long-term current use of insulin Braxton Ruelas MD Apr 01, 2016 18:42
[2016-04-01 20:00] VITALS: BP 159/62; PULSE 70; RESP 20; TEMP 98.7; O2SAT 95
[2016-04-01] MEDS: DOXAZOSIN MESYLATE 2 MG TAB PO SCH (21:03)
[2016-04-01] MEDS: cefTRIAXone INJ 1,000 MG in SODIUM CHLORIDE 0.9% INJ 100 ML IV SCH (21:04)
[2016-04-01] MEDS: LACTATED RINGER'S 1000 ML INJ 1,000 ML IV SCH (21:32)
[2016-04-02 00:19] VITALS: BP 129/58; PULSE 49; RESP 18; TEMP 98.4; O2SAT 97
[2016-04-02 04:20] VITALS: BP 155/58; PULSE 59; RESP 18; TEMP 98; O2SAT 97
[2016-04-02] MEDS: INSULIN ASPART SUPPLEMENTAL SCALE SQ SCH ×4 (06:00→21:23)
[2016-04-02] MEDS: POTASSIUM PHOSPHATE/SODIUM PHOSPHATE 250 MG TAB PO SCH ×3 (06:00→21:23)
[2016-04-02 08:00] VITALS: BP 101/58; PULSE 67; RESP 18; TEMP 98.6; O2SAT 94
[2016-04-02] MEDS: ENOXAPARIN SODIUM 40 MG/0.4 ML SYRINGE SQ SCH (08:54)
[2016-04-02] MEDS: MEGESTROL ACETATE SUSP 400 MG/10 ML CUP PO SCH (08:54)
[2016-04-02 12:00] VITALS: BP 160/71; PULSE 80; RESP 18; TEMP 98.3; O2SAT 94
[2016-04-02 16:00] VITALS: BP 146/64; PULSE 86; RESP 18; TEMP 98.2; O2SAT 91
[2016-04-02] MEDS: LACTATED RINGER'S 1000 ML INJ 1,000 ML IV SCH (19:00)
--- NOTE | 2016-04-02 19:38 | HHI.PR ---
Subjective Remarks Sitting in nurses station not communicative stable vital signs Objective Vitals Vital Signs Date Time Temp Pulse Resp B/P Pulse Ox O2 Delivery O2 Flow Rate FiO2 04/02/16 16:00 98.2 86 18 146/64 91 04/02/16 12:00 98.3 80 18 160/71 94 04/02/16 08:00 96 Room Air 04/02/16 08:00 98.6 67 18 101/58 94 04/02/16 04:20 98.0 59 18 155/58 97 04/02/16 00:19 98.4 49 18 129/58 97 04/01/16 20:00 98.7 70 20 159/62 95 I/O 04/01/16 04/01/16 04/01/16 04/02/16 04/02/16 04/02/16 07:00 15:00 23:00 07:00 15:00 23:00 Intake Total 800 ml 520 ml 600 ml Balance 800 ml 520 ml 600 ml Intake Oral 520 ml 600 ml IV Total 800 ml # Voids 3 1 # Bowel Movements 2 0 Result Diagram: 04/01/16 0753 04/01/16 0753 Objective Remarks GENERAL: Patient is awake and alert, nad, sitting up in chair, talkative CARDIOVASCULAR: Normal rate and regular rhythm without murmurs, gallops, or rubs. RESPIRATORY: Clear to auscultation bilaterally. GASTROINTESTINAL: Abdomen soft, non-tender, non-distended. Normal active bowel sounds NEURO: Alert to self only, does not interact with me today. PSYCH: Calm, very talkative but confused. Procedures none Medications and IVs Current Medications Medications (Trade) Dose Ordered Sig/Rose Mary Route Start Time Stop Time Status Last Admin (NS Flush) 2 ml UNSCH PRN FLUSH 03/26/16 11:45 (NS Flush) 2 ml BID FLUSH 03/26/16 21:00 04/01/16 21:00 (Tylenol) 650 mg Q4H PRN PO 03/26/16 11:45 (Zofran Inj) 4 mg Q6H PRN IVP 03/26/16 11:45 (Milk Of Magnesia Liq) 30 ml Q12H PRN PO 03/26/16 11:45 (Tylenol) 650 mg Q6H PRN PO 03/26/16 11:45 03/31/16 12:09 (D50w (Vial) Inj) 25 ml UNSCH PRN IV PUSH 03/26/16 11:45 Glucagon 1 mg 1 mg UNSCH PRN OTHER 03/26/16 11:45 (Lr 1000 ml Inj) 1,000 ml @ 100 mls/hr Q10H IV 03/29/16 15:00 03/31/16 23:15 (Megace Liq) 400 mg DAILY PO 03/29/16 15:30 04/02/16 08:54 (Lovenox Inj) 40 mg Q24H SQ 03/30/16 09:00 04/02/16 08:54 Potassium Phos/ Sodium Phos 250 mg 250 mg Q8HR PO 03/30/16 15:45 04/02/16 13:08 (Rocephin Inj/NS Inj) 100 ml @ 200 mls/hr Q24H IV 04/01/16 20:00 04/01/16 21:04 (Cardura) 2 mg HS PO 04/01/16 21:00 04/01/16 21:03 Urinary Catheter: No A/P Problem List: (1) Acute renal injury ICD Code: N17.9 Status: Resolved (2) CKD (chronic kidney disease), stage III ICD Code: N18.3 Status: Chronic (3) Dementia with behavioral disturbance ICD Code: F03.91 Status: Acute (4) HTN (hypertension) ICD Code: I10 Status: Chronic (5) DM (diabetes mellitus) ICD Code: E11.9 Status: Chronic (6) Debility ICD Code: R53.81 Status: Acute (7) Moderate protein malnutrition ICD Code: E44.0 Status: Chronic (8) Hypophosphatemia ICD Code: E83.39 Status: Acute (9) Hematuria ICD Code: R31.9 Status: Acute Assessment and Plan (1) Acute renal injury Plan: 80-year-old male with what appears to be end-stage dementia transferred from psychiatric unit for dehydration, acute kidney injury due to poor oral intake. The patient's close taking back to [place]. Apparently transport has been arranged for him to go back on Thursday. JOSE on CKD stage III is likely due to dehydration and poor oral intake in the psychiatric unit. Continue with IV fluids and monitor renal function. 03/31 Creatinine trending down from 1.63-1.41, good urine output. Continue IV normal saline and to monitor BUN and creatinine. 04/02 Creatinine continues to trend down. . (2) CKD (chronic kidney disease), stage III Plan: As above. (3) Dementia with behavioral disturbance Plan: Patient has long-standing dementia, now not eating or drinking. This is likely end-stage dementia. Seroquel has been discontinued to avoid oversedation. Consults palliative care to help address goals of care. continue Namenda. (4) HTN (hypertension) Plan: BP elevated on 03/30 - dose of amlodipine was increased to 10 mg po daily Bp still uncontrolled - will start patient on cardura 2 mg at bedtime. 04/02 BP much better - continue Cardura as above Continue with clonidine prn. (5) DM (diabetes mellitus) Plan: Continue AzaSite with insulin NovoLog. Blood sugar stable. (6) Debility Plan: Patient has physical deconditioning. Physical therapy consulted. Physical therapy recommends PT at rehabilitation and the use of a wheelchair. (7) Moderate protein malnutrition ICD Code: E44.0 Status: Chronic Plan: Due to poor oral intake. Recommended 1999 ADA diet, which is a PhD and encourage by mouth intake. Continue megestrol acetate, the patient still with poor oral intake. appreciate diet recommendations - Calorie count under way from 03/31 to 04/02 recommendations pending. (8) Hypophosphatemia Plan: Likely due to previous poor oral intake. Started the patient on Neutra- Phos on 2016. Hypophosphatemia resolved with phosphorus 2.5. (9) Hematuria Plan: Reported hematuria by RN. Will DC heparin SQ. UA (+) - start the patient on Rocephin and fu urine culture. Urine culture grew Proteus Mirabilis - Continue rocephin. DVT prophylaxis: SCDs, DC lovenox due to hematuria. Discharge Planning Continue to monitor in the medical floor. Possible dc in am is patient eating enough calories. Problem Qualifiers (1) HTN (hypertension): Qualified Code: I10 - Essential hypertension (2) DM (diabetes mellitus): Qualified Code: E11.8 - Type 2 diabetes mellitus with complication, without long-term current use of insulin Braxton Ruelas MD Apr 02, 2016 19:38
[2016-04-02 20:04] VITALS: BP 107/69; PULSE 87; RESP 22; TEMP 98.3; O2SAT 96
[2016-04-02] MEDS: SODIUM CHLORIDE 0.9% FLUSH 5 ML FLUSH FLUSH SCH (20:55)
[2016-04-02] MEDS: DOXAZOSIN MESYLATE 2 MG TAB PO SCH (21:23)
[2016-04-02] MEDS: cefTRIAXone INJ 1,000 MG in SODIUM CHLORIDE 0.9% INJ 100 ML IV SCH (21:24)
[2016-04-03] VITALS: BP_SYST 112; BP_SYST 135; BP_DIAS 52; BP_DIAS 62; PULSE 67; PULSE 70; RESP 18; RESP 22; TEMP 97.4; TEMP 98.4; O2SAT 94; O2SAT 96
[2016-04-03 04:00] VITALS: BP 110/57; PULSE 63; RESP 20; TEMP 98; O2SAT 95
[2016-04-03] MEDS: LACTATED RINGER'S 1000 ML INJ 1,000 ML IV SCH (05:00)
[2016-04-03] MEDS: POTASSIUM PHOSPHATE/SODIUM PHOSPHATE 250 MG TAB PO SCH ×3 (05:39→21:45)
[2016-04-03] MEDS: INSULIN ASPART SUPPLEMENTAL SCALE SQ SCH ×4 (05:58→21:45)
[2016-04-03 06:35] LABS: POTASSIUM 3.7 MEQ/L (3.5-5.1)
[2016-04-03 08:07] VITALS: BP 153/67; PULSE 68; RESP 20; TEMP 97.8; O2SAT 94
[2016-04-03] MEDS: SODIUM CHLORIDE 0.9% FLUSH 5 ML FLUSH FLUSH SCH ×2 (09:00→21:00)
[2016-04-03] MEDS: MEGESTROL ACETATE SUSP 400 MG/10 ML CUP PO SCH (09:49)
[2016-04-03] MEDS: ENOXAPARIN SODIUM 40 MG/0.4 ML SYRINGE SQ SCH (09:50)
[2016-04-03 12:07] VITALS: BP 148/67; PULSE 75; RESP 18; TEMP 98; O2SAT 95
--- NOTE | 2016-04-03 14:15 | HHI.PR ---
Subjective Remarks Patient is sitting quietly on nurses station as per RN report - patient has no episodes of agitation patient is awake and alert but does not want to answer my question stable vital signs Objective Vitals Vital Signs Date Time Temp Pulse Resp B/P Pulse Ox O2 Delivery O2 Flow Rate FiO2 04/03/16 08:07 97.8 68 20 153/67 94 04/03/16 07:15 Room Air 04/03/16 04:00 98.0 63 20 110/57 95 04/03/16 00:00 98.4 70 22 112/52 94 04/02/16 20:04 98.3 87 22 107/69 96 04/02/16 19:00 Room Air 04/02/16 16:00 98.2 86 18 146/64 91 I/O 04/02/16 04/02/16 04/02/16 04/03/16 04/03/16 04/03/16 07:00 15:00 23:00 07:00 15:00 23:00 Intake Total 520 ml 600 ml 120 ml Balance 520 ml 600 ml 120 ml Intake Oral 520 ml 600 ml 120 ml # Voids 3 1 4 # Bowel Movements 2 0 0 Result Diagram: 04/01/16 0753 04/03/16 0531 Objective Remarks GENERAL: Patient is awake and alert, nad, sitting up in chair, talkative CARDIOVASCULAR: Normal rate and regular rhythm without murmurs, gallops, or rubs. RESPIRATORY: Clear to auscultation bilaterally. GASTROINTESTINAL: Abdomen soft, non-tender, non-distended. Normal active bowel sounds NEURO: Alert to self only, does not interact with me today. PSYCH: Calm. Procedures none Medications and IVs Current Medications Medications (Trade) Dose Ordered Sig/Rose Mary Route Start Time Stop Time Status Last Admin (NS Flush) 2 ml UNSCH PRN FLUSH 03/26/16 11:45 (NS Flush) 2 ml BID FLUSH 03/26/16 21:00 04/01/16 21:00 (Tylenol) 650 mg Q4H PRN PO 03/26/16 11:45 (Zofran Inj) 4 mg Q6H PRN IVP 03/26/16 11:45 (Milk Of Magnesia Liq) 30 ml Q12H PRN PO 03/26/16 11:45 (Tylenol) 650 mg Q6H PRN PO 03/26/16 11:45 03/31/16 12:09 (D50w (Vial) Inj) 25 ml UNSCH PRN IV PUSH 03/26/16 11:45 Glucagon 1 mg 1 mg UNSCH PRN OTHER 03/26/16 11:45 (Lr 1000 ml Inj) 1,000 ml @ 100 mls/hr Q10H IV 03/29/16 15:00 04/03/16 05:00 (Megace Liq) 400 mg DAILY PO 03/29/16 15:30 04/03/16 09:49 (Lovenox Inj) 40 mg Q24H SQ 03/30/16 09:00 04/03/16 09:50 Potassium Phos/ Sodium Phos 250 mg 250 mg Q8HR PO 03/30/16 15:45 04/03/16 12:57 (Rocephin Inj/NS Inj) 100 ml @ 200 mls/hr Q24H IV 04/01/16 20:00 04/02/16 21:24 (Cardura) 2 mg HS PO 04/01/16 21:00 04/02/16 21:23 Urinary Catheter: No Vascular Central Line Catheter: No A/P Problem List: (1) Acute renal injury ICD Code: N17.9 Status: Resolved (2) CKD (chronic kidney disease), stage III ICD Code: N18.3 Status: Chronic (3) Dementia with behavioral disturbance ICD Code: F03.91 Status: Acute (4) HTN (hypertension) ICD Code: I10 Status: Chronic (5) DM (diabetes mellitus) ICD Code: E11.9 Status: Chronic (6) Debility ICD Code: R53.81 Status: Acute (7) Moderate protein malnutrition ICD Code: E44.0 Status: Chronic (8) Hypophosphatemia ICD Code: E83.39 Status: Acute (9) Hematuria ICD Code: R31.9 Status: Acute Assessment and Plan (1) Acute renal injury Plan: 80-year-old male with what appears to be end-stage dementia transferred from psychiatric unit for dehydration, acute kidney injury due to poor oral intake. The patient's close taking back to [place]. Apparently transport has been arranged for him to go back on Thursday. JOSE on CKD stage III is likely due to dehydration and poor oral intake in the psychiatric unit. Continue with IV fluids and monitor renal function. 2/13 Creatinine trending down from 1.63-1.41, good urine output. Continue IV normal saline and to monitor BUN and creatinine. 04/02 Creatinine continues to trend down. 04/03 Creatinine stable. . (2) CKD (chronic kidney disease), stage III Plan: As above. Baseline creatinine 1.3 to 1.4 (3) Dementia with behavioral disturbance Plan: Patient has long-standing dementia, Patient is not eating or drinking Seroquel has been discontinued to avoid oversedation. 04/03 palliative care consulted, the patient is DO NOT RESUSCITATE. Patient has not had any episodes of agitation and is pleasantly demented. (4) HTN (hypertension) Plan: BP elevated on 03/30 - dose of amlodipine was increased to 10 mg po daily Bp still uncontrolled - will start patient on cardura 2 mg at bedtime. Blood pressure stable. Continue the patient on amlodipine 10 mg by mouth daily and Cardura 2 mg by mouth at bedtime. (5) DM (diabetes mellitus) Plan: Continue AzaSite with insulin NovoLog. Blood sugar stable. (6) Debility Plan: Patient has physical deconditioning. Physical therapy consulted. Physical therapy recommends PT at rehabilitation and the use of a wheelchair. (7) Moderate protein malnutrition ICD Code: E44.0 Status: Chronic Plan: Due to poor oral intake. Recommended 1999 ADA diet, which is a PhD and encourage by mouth intake. Continue megestrol acetate, patient's intake is improving. Dietitian was consulted. Currently count was obtained from 03/31 to 04/02. Patient is noted to be eating more. Dietitian recommended glycerin3 times a day. Continue with Megace. Continue with encourage by mouth and supplement intake and assist patient at mealtimes. (8) Hypophosphatemia Plan: Likely due to previous poor oral intake. Started the patient on Neutra- Phos on 2016. Hypophosphatemia resolved with phosphorus 2.5. Result. Continue to monitor phosphorus. (9) Hematuria Plan: Reported hematuria by RN. Will DC heparin SQ. UA (+) - start the patient on Rocephin and fu urine culture. Urine culture grew Proteus Mirabilis - Continue rocephin. Hematuria resolved. DVT prophylaxis: SCDs, continue to hold Lovenox. Discharge Planning Discharge pending placement. Case discussed with case assistant who will assist on this. Problem Qualifiers (1) HTN (hypertension): Qualified Code: I10 - Essential hypertension (2) DM (diabetes mellitus): Qualified Code: E11.8 - Type 2 diabetes mellitus with complication, without long-term current use of insulin Braxton Ruelas MD Apr 03, 2016 14:15
[2016-04-03 16:07] VITALS: BP 143/80; PULSE 66; RESP 18; TEMP 98.3; O2SAT 95
[2016-04-03 20:00] VITALS: BP 144/67; PULSE 64; RESP 22; TEMP 98; O2SAT 96
[2016-04-03] MEDS: cefTRIAXone INJ 1,000 MG in SODIUM CHLORIDE 0.9% INJ 100 ML IV SCH (21:38)
[2016-04-03] MEDS: DOXAZOSIN MESYLATE 2 MG TAB PO SCH (21:43)
[2016-04-04] MEDS: LACTATED RINGER'S 1000 ML INJ 1,000 ML IV SCH ×3 (01:54→21:55)
[2016-04-04 04:00] VITALS: BP 140/65; PULSE 68; RESP 18; TEMP 97.4; O2SAT 96
[2016-04-04] MEDS: POTASSIUM PHOSPHATE/SODIUM PHOSPHATE 250 MG TAB PO SCH ×3 (06:18→21:49)
[2016-04-04] MEDS: INSULIN ASPART SUPPLEMENTAL SCALE SQ SCH ×4 (06:18→21:52)
[2016-04-04 08:07] VITALS: BP 152/71; PULSE 85; RESP 20; TEMP 98.4; O2SAT 97
[2016-04-04] MEDS: SODIUM CHLORIDE 0.9% FLUSH 5 ML FLUSH FLUSH SCH ×2 (09:00→21:52)
[2016-04-04] MEDS: MEGESTROL ACETATE SUSP 400 MG/10 ML CUP PO SCH (09:42)
[2016-04-04] MEDS: ENOXAPARIN SODIUM 40 MG/0.4 ML SYRINGE SQ SCH (09:43)
--- NOTE | 2016-04-04 10:42 | HHI.PR ---
Subjective Remarks no major overnight events Patient answering some questions patient is trying to get out of bed stable vital signs Objective Vitals Vital Signs Date Time Temp Pulse Resp B/P Pulse Ox O2 Delivery O2 Flow Rate FiO2 04/04/16 08:07 98.4 85 20 152/71 97 04/04/16 07:15 Room Air 04/04/16 04:00 97.4 68 18 140/65 96 04/03/16 20:00 98.0 64 22 144/67 96 04/03/16 20:00 Room Air 04/03/16 16:07 98.3 66 18 143/80 95 04/03/16 12:07 98.0 75 18 148/67 95 I/O 04/03/16 04/03/16 04/03/16 04/04/16 04/04/16 04/04/16 06:59 14:59 22:59 06:59 14:59 22:59 Intake Total 240 ml 220 ml 220 ml Balance 240 ml 220 ml 220 ml Intake Oral 240 ml 220 ml 220 ml # Voids 3 2 2 # Bowel Movements 0 0 0 Result Diagram: 04/01/16 0753 04/03/16 0531 Objective Remarks GENERAL: Patient is awake and alert, nad, sitting up in chair, talkative CARDIOVASCULAR: Normal rate and regular rhythm without murmurs, gallops, or rubs. RESPIRATORY: Clear to auscultation bilaterally. GASTROINTESTINAL: Abdomen soft, non-tender, non-distended. Normal active bowel sounds NEURO: Alert to self only, does not interact with me today. PSYCH: Calm. Procedures none Medications and IVs Current Medications Medications (Trade) Dose Ordered Sig/Rose Mary Route Start Time Stop Time Status Last Admin (NS Flush) 2 ml UNSCH PRN FLUSH 03/26/16 11:45 (NS Flush) 2 ml BID FLUSH 03/26/16 21:00 04/01/16 21:00 (Tylenol) 650 mg Q4H PRN PO 03/26/16 11:45 (Zofran Inj) 4 mg Q6H PRN IVP 03/26/16 11:45 (Milk Of Magnesia Liq) 30 ml Q12H PRN PO 03/26/16 11:45 (Tylenol) 650 mg Q6H PRN PO 03/26/16 11:45 03/31/16 12:09 (D50w (Vial) Inj) 25 ml UNSCH PRN IV PUSH 03/26/16 11:45 Glucagon 1 mg 1 mg UNSCH PRN OTHER 03/26/16 11:45 (Lr 1000 ml Inj) 1,000 ml @ 100 mls/hr Q10H IV 03/29/16 15:00 04/04/16 01:54 (Megace Liq) 400 mg DAILY PO 03/29/16 15:30 04/04/16 09:42 (Lovenox Inj) 40 mg Q24H SQ 03/30/16 09:00 04/04/16 09:43 Potassium Phos/ Sodium Phos 250 mg 250 mg Q8HR PO 03/30/16 15:45 04/04/16 06:18 (Rocephin Inj/NS Inj) 100 ml @ 200 mls/hr Q24H IV 04/01/16 20:00 04/03/16 21:38 (Cardura) 2 mg HS PO 04/01/16 21:00 04/03/16 21:43 Urinary Catheter: No Vascular Central Line Catheter: No A/P Problem List: (1) Acute renal injury ICD Code: N17.9 Status: Resolved (2) CKD (chronic kidney disease), stage III ICD Code: N18.3 Status: Chronic (3) Dementia with behavioral disturbance ICD Code: F03.91 Status: Acute (4) HTN (hypertension) ICD Code: I10 Status: Chronic (5) DM (diabetes mellitus) ICD Code: E11.9 Status: Chronic (6) Debility ICD Code: R53.81 Status: Acute (7) Moderate protein malnutrition ICD Code: E44.0 Status: Chronic (8) Hypophosphatemia ICD Code: E83.39 Status: Acute (9) Hematuria ICD Code: R31.9 Status: Acute Assessment and Plan (1) Acute renal injury Plan: 80-year-old male with what appears to be end-stage dementia transferred from psychiatric unit for dehydration, acute kidney injury due to poor oral intake. The patient's close taking back to [place]. Apparently transport has been arranged for him to go back on Thursday. JOSE on CKD stage III is likely due to dehydration and poor oral intake in the psychiatric unit. Continue with IV fluids and monitor renal function. 03/31 Creatinine trending down from 1.63-1.41, good urine output. Continue IV normal saline and to monitor BUN and creatinine. 04/02 Creatinine continues to trend down. 04/03 Creatinine stable. . (2) CKD (chronic kidney disease), stage III Plan: As above. Baseline creatinine 1.3 to 1.4 (3) Dementia with behavioral disturbance Plan: Patient has long-standing dementia, Patient is not eating or drinking Seroquel has been discontinued to avoid oversedation. 04/03 palliative care consulted, the patient is DO NOT RESUSCITATE. Patient has not had any episodes of agitation and is pleasantly demented. (4) HTN (hypertension) Plan: BP elevated on 03/30 - dose of amlodipine was increased to 10 mg po daily Bp still uncontrolled - will start patient on cardura 2 mg at bedtime. Blood pressure stable. Continue the patient on amlodipine 10 mg by mouth daily and Cardura 2 mg by mouth at bedtime. (5) DM (diabetes mellitus) Plan: Continue AzaSite with insulin NovoLog. Blood sugar stable. (6) Debility Plan: Patient has physical deconditioning. Physical therapy consulted. Physical therapy recommends PT at rehabilitation and the use of a wheelchair. (7) Moderate protein malnutrition Plan: Due to poor oral intake. Recommended 1999 ADA diet, which is a PhD and encourage by mouth intake. Continue megestrol acetate, patient's intake is improving. Dietitian was consulted. Currently count was obtained from 03/31 to 04/02. Patient is noted to be eating more. Dietitian recommended glycerin3 times a day. Continue with Megace. Continue with encourage by mouth and supplement intake and assist patient at mealtimes. (8) Hypophosphatemia Plan: Likely due to previous poor oral intake. Started the patient on Neutra- Phos on 2016. Hypophosphatemia resolved with phosphorus 2.5. Result. Continue to monitor phosphorus. (9) Hematuria Plan: Reported hematuria by RN. Will DC heparin SQ. UA (+) - start the patient on Rocephin and fu urine culture. Urine culture grew Proteus Mirabilis - Continue Rocephin. Hematuria resolved. DVT prophylaxis: SCDs, continue to hold Lovenox. Discharge Planning Discharge pending placement. Case discussed with employment case manager who will assist on this. Problem Qualifiers (1) HTN (hypertension): Qualified Code: I10 - Essential hypertension (2) DM (diabetes mellitus): Qualified Code: E11.8 - Type 2 diabetes mellitus with complication, without long-term current use of insulin Braxton Ruelas MD Apr 04, 2016 10:42
[2016-04-04] MEDS ORDERED: MEGE40SU PO (10:48)
[2016-04-04] MEDS ORDERED: CARD2TAB PO (10:48)
--- NOTE | 2016-04-04 10:48 | HHI.DCPOC ---
Discharge Care Plan Diagnosis: (1) Decreased oral intake (2) Acute renal injury (3) Hematuria (4) Hypophosphatemia (5) Moderate protein malnutrition (6) DM (diabetes mellitus) (7) Debility (8) Dementia with behavioral disturbance (9) HTN (hypertension) (10) CKD (chronic kidney disease), stage III (11) Acute kidney injury (12) Dementia Goals to Promote Your Health * To prevent worsening of your condition and complications * To maintain your health at the optimal level Directions to Meet Your Goals Take your medications as prescribed Follow your dietary instruction Follow activity as directed Keep your appointments as scheduled Take your immunizations and boosters as scheduled If your symptoms worsen call your PCP, if no PCP go to Urgent Care Center or Emergency Room Smoking is Dangerous to Your Health. Avoid second hand smoke Call the 24-hour hour crisis hotline for domestic abuse at Braxton Ruelas MD Apr 04, 2016 10:48
[2016-04-04 12:07] VITALS: BP 154/68; PULSE 86; RESP 20; TEMP 98.2; O2SAT 97
[2016-04-04 16:06] VITALS: BP 149/97; PULSE 73; RESP 20; TEMP 98.4; O2SAT 97
[2016-04-04 20:00] VITALS: BP 144/61; PULSE 63; RESP 18; TEMP 98.1; O2SAT 97
[2016-04-04] MEDS ORDERED: diphenhydrAMINE HCL 25 MG CAP PO ONE (20:45)
[2016-04-04] MEDS: CEFUROXIME AXETIL 500 MG TAB PO SCH (21:49)
[2016-04-04] MEDS: DOXAZOSIN MESYLATE 2 MG TAB PO SCH (21:49)
[2016-04-05] VITALS: BP 161/66; PULSE 75; RESP 18; TEMP 97.6; O2SAT 95
[2016-04-05 04:00] VITALS: BP 145/69; PULSE 72; RESP 20; TEMP 97.4; O2SAT 96
[2016-04-05] MEDS: INSULIN ASPART SUPPLEMENTAL SCALE SQ SCH ×4 (05:35→22:28)
[2016-04-05] MEDS: LACTATED RINGER'S 1000 ML INJ 1,000 ML IV SCH (05:37)
[2016-04-05] MEDS: POTASSIUM PHOSPHATE/SODIUM PHOSPHATE 250 MG TAB PO SCH ×3 (05:39→22:28)
[2016-04-05 08:34] VITALS: BP 170/79; PULSE 75; RESP 20; TEMP 97.2; O2SAT 96
[2016-04-05] MEDS: MEGESTROL ACETATE SUSP 400 MG/10 ML CUP PO SCH (08:36)
[2016-04-05] MEDS: CEFUROXIME AXETIL 500 MG TAB PO SCH ×2 (08:36→22:27)
[2016-04-05] MEDS: SODIUM CHLORIDE 0.9% FLUSH 5 ML FLUSH FLUSH SCH ×2 (08:36→22:27)
[2016-04-05] MEDS: ENOXAPARIN SODIUM 40 MG/0.4 ML SYRINGE SQ SCH (08:37)
[2016-04-05 12:11] VITALS: BP 130/68; PULSE 86; RESP 21; TEMP 97.8; O2SAT 96
--- NOTE | 2016-04-05 13:37 | HHI.PR ---
Subjective Remarks Seen earlier in the morning today. Patient in the chair, family at bedside. Patient doesn't appear in acute distress. No n/v/d/c. Has soem LE edema. NO sob or chest pain. Objective Vitals Vital Signs Date Time Temp Pulse Resp B/P Pulse Ox O2 Delivery O2 Flow Rate FiO2 04/05/16 12:11 97.8 86 21 130/68 96 04/05/16 08:42 Room Air 04/05/16 08:34 97.2 75 20 170/79 96 04/05/16 04:00 97.4 72 20 145/69 96 04/05/16 00:00 97.6 75 18 161/66 95 04/04/16 20:00 Room Air 04/04/16 20:00 98.1 63 18 144/61 97 04/04/16 16:06 98.4 73 20 149/97 97 I/O 04/04/16 04/04/16 04/04/16 04/05/16 04/05/16 04/05/16 07:00 15:00 23:00 07:00 15:00 23:00 Intake Total 220 ml 524 ml 480 ml 120 ml Balance 220 ml 524 ml 480 ml 120 ml Intake Oral 220 ml 240 ml 480 ml 120 ml IV Total 284 ml # Voids 2 5 4 2 # Bowel Movements 0 2 1 Result Diagram: 04/01/16 0753 04/03/16 0531 Objective Remarks GENERAL: 80 yo male, appears in nad, alert and oriented by name. SKIN: Warm and dry. HEAD: Atraumatic. Normocephalic. EYES: Pupils equal and round. No scleral icterus. No injection or drainage. ENT: No nasal bleeding or discharge. Mucous membranes pink and moist. NECK: Trachea midline. No JVD. CARDIOVASCULAR: Regular rate and rhythm. RESPIRATORY: No accessory muscle use. Clear to auscultation. Breath sounds equal bilaterally. GASTROINTESTINAL: Abdomen soft, non-tender, nondistended. Hepatic and splenic margins not palpable. MUSCULOSKELETAL: BP 2+ LE edema. Extremities without clubbing, cyanosis. No obvious deformities. NEUROLOGICAL: Awake and alert x name only, at baseline. Muscle strength in the arms and legs grossly normal. Normal speech. Poor judgement. Procedures none A/P Problem List: (1) Acute renal injury ICD Code: N17.9 Status: Resolved (2) CKD (chronic kidney disease), stage III ICD Code: N18.3 Status: Chronic (3) Dementia with behavioral disturbance ICD Code: F03.91 Status: Acute (4) HTN (hypertension) ICD Code: I10 Status: Chronic (5) DM (diabetes mellitus) ICD Code: E11.9 Status: Chronic (6) Debility ICD Code: R53.81 Status: Acute (7) Moderate protein malnutrition ICD Code: E44.0 Status: Chronic (8) Hypophosphatemia ICD Code: E83.39 Status: Acute (9) Hematuria ICD Code: R31.9 Status: Acute Assessment and Plan Acute renal injury 80-year-old male with what appears to be end-stage dementia transferred from psychiatric unit for dehydration, acute kidney injury due to poor oral intake. The patient's close taking back to [place]. Apparently transport has been arranged for him to go back on Thursday. JOSE on CKD stage III is likely due to dehydration and poor oral intake in the psychiatric unit. Continue with IV fluids and monitor renal function. 03/31 Creatinine trending down from 1.63-1.41, good urine output. Continue IV normal saline and to monitor BUN and creatinine. 04/02 Creatinine continues to trend down. 04/03 Creatinine stable. CKD (chronic kidney disease), stage III As above. Baseline creatinine 1.3 to 1.4 DC IVF as noted with LE edema. Dementia with behavioral disturbance Patient has long-standing dementia, Patient is not eating or drinking Seroquel has been discontinued to avoid oversedation. 04/03 palliative care consulted, the patient is DO NOT RESUSCITATE. Patient has not had any episodes of agitation and is pleasantly demented. HTN (hypertension) BP elevated on 03/30 - dose of amlodipine was increased to 10 mg po daily Bp still uncontrolled - will start patient on cardura 2 mg at bedtime. Blood pressure stable. Continue the patient on amlodipine 10 mg by mouth daily and Cardura 2 mg by mouth at bedtime. DM (diabetes mellitus) Continue AzaSite with insulin NovoLog. Blood sugar stable. Debility Patient has physical deconditioning. Physical therapy consulted. Physical therapy recommends PT at rehabilitation and the use of a wheelchair. Moderate protein malnutrition Due to poor oral intake. Recommended 1999 ADA diet, which is a PhD and encourage by mouth intake. Continue megestrol acetate, patient's intake is improving. Dietitian was consulted. Currently count was obtained from 03/31 to 04/02. Patient is noted to be eating more. Dietitian recommended glycerin3 times a day. Continue with Megace. Continue with encourage by mouth and supplement intake and assist patient at mealtimes. Hypophosphatemia Likely due to previous poor oral intake. Started the patient on Neutra-Phos on 2016. Hypophosphatemia resolved with phosphorus 2.5. Result. Continue to monitor phosphorus. Hematuria Reported hematuria by RN. Will DC heparin SQ. UA (+) - start the patient on Rocephin and fu urine culture. Urine culture grew Proteus Mirabilis - DC IV Rocephin and start Ceftin for a total of 7 days Hematuria resolved. DVT prophylaxis: SCDs, continue to hold Lovenox. Discharge Planning Discharge pending placement. Case discussed with case preparer and liner , plan to DC to SNF on Thursday Discussed with the patient, nurse, family at bedside, CM. Problem Qualifiers (1) HTN (hypertension): Qualified Code: I10 - Essential hypertension (2) DM (diabetes mellitus): Qualified Code: E11.8 - Type 2 diabetes mellitus with complication, without long-term current use of insulin Marta Borrego MD Apr 05, 2016 13:37
[2016-04-05 16:34] VITALS: BP 142/65; PULSE 76; RESP 20; TEMP 98.2; O2SAT 96
[2016-04-05 20:00] VITALS: BP 107/49; PULSE 61; RESP 16; TEMP 98.7; O2SAT 98
[2016-04-05] MEDS: DOXAZOSIN MESYLATE 2 MG TAB PO SCH (22:27)
[2016-04-06 00:38] VITALS: BP 106/54; PULSE 60; RESP 18; TEMP 98.6; O2SAT 97
[2016-04-06 04:43] VITALS: BP 112/59; PULSE 67; RESP 18; TEMP 98.2; O2SAT 96
[2016-04-06] MEDS: POTASSIUM PHOSPHATE/SODIUM PHOSPHATE 250 MG TAB PO SCH ×3 (05:18→21:16)
[2016-04-06] MEDS: INSULIN ASPART SUPPLEMENTAL SCALE SQ SCH ×4 (05:31→22:25)
[2016-04-06] MEDS: SODIUM CHLORIDE 0.9% FLUSH 5 ML FLUSH FLUSH SCH ×2 (08:10→21:16)
[2016-04-06] MEDS: CEFUROXIME AXETIL 500 MG TAB PO SCH ×2 (08:11→21:15)
[2016-04-06] MEDS: ENOXAPARIN SODIUM 40 MG/0.4 ML SYRINGE SQ SCH (08:11)
[2016-04-06] MEDS: MEGESTROL ACETATE SUSP 400 MG/10 ML CUP PO SCH (08:11)
[2016-04-06 08:28] VITALS: BP 125/56; PULSE 68; RESP 20; TEMP 97.8; O2SAT 95
--- NOTE | 2016-04-06 09:53 | HHI.PR ---
Subjective Remarks Patient at the nursing station. Appears in nad. No events overnight. No complaints. Objective Vitals Vital Signs Date Time Temp Pulse Resp B/P Pulse Ox O2 Delivery O2 Flow Rate FiO2 04/06/16 08:28 97.8 68 20 125/56 95 04/06/16 04:43 98.2 67 18 112/59 96 04/06/16 00:38 98.6 60 18 106/54 97 04/05/16 20:00 98.7 61 16 107/49 98 04/05/16 20:00 Room Air 04/05/16 16:34 98.2 76 20 142/65 96 04/05/16 12:11 97.8 86 21 130/68 96 I/O 04/05/16 04/05/16 04/05/16 04/06/16 04/06/16 04/06/16 07:00 15:00 23:00 07:00 15:00 23:00 Intake Total 120 ml 1200 ml 1463 ml 750 ml Balance 120 ml 1200 ml 1463 ml 750 ml Intake Oral 120 ml 1200 ml 620 ml 750 ml IV Total 843 ml # Voids 2 3 2 5 # Bowel Movements 1 1 0 0 Result Diagram: 04/03/16 0531 Objective Remarks GENERAL: 80 yo male, appears in nad, alert and oriented by name. SKIN: Warm and dry. HEAD: Atraumatic. Normocephalic. EYES: Pupils equal and round. No scleral icterus. No injection or drainage. ENT: No nasal bleeding or discharge. Mucous membranes pink and moist. NECK: Trachea midline. No JVD. CARDIOVASCULAR: Regular rate and rhythm. RESPIRATORY: No accessory muscle use. Clear to auscultation. Breath sounds equal bilaterally. GASTROINTESTINAL: Abdomen soft, non-tender, nondistended. Hepatic and splenic margins not palpable. MUSCULOSKELETAL: BP 2+ LE edema. Extremities without clubbing, cyanosis. No obvious deformities. NEUROLOGICAL: Awake and alert x name only, at baseline. Muscle strength in the arms and legs grossly normal. Normal speech. Poor judgement. Procedures none A/P Problem List: (1) Acute renal injury ICD Code: N17.9 Status: Resolved (2) CKD (chronic kidney disease), stage III ICD Code: N18.3 Status: Chronic (3) Dementia with behavioral disturbance ICD Code: F03.91 Status: Acute (4) HTN (hypertension) ICD Code: I10 Status: Chronic (5) DM (diabetes mellitus) ICD Code: E11.9 Status: Chronic (6) Debility ICD Code: R53.81 Status: Acute (7) Moderate protein malnutrition ICD Code: E44.0 Status: Chronic (8) Hypophosphatemia ICD Code: E83.39 Status: Acute (9) Hematuria ICD Code: R31.9 Status: Acute Assessment and Plan Acute renal injury 80-year-old male with what appears to be end-stage dementia transferred from psychiatric unit for dehydration, acute kidney injury due to poor oral intake. The patient's close taking back to [place]. Apparently transport has been arranged for him to go back on Thursday. JOSE on CKD stage III is likely due to dehydration and poor oral intake in the psychiatric unit. Continue with IV fluids and monitor renal function. 03/31 Creatinine trending down from 1.63-1.41, good urine output. Continue IV normal saline and to monitor BUN and creatinine. 04/02 Creatinine continues to trend down. 04/03 Creatinine stable. CKD (chronic kidney disease), stage III As above. Baseline creatinine 1.3 to 1.4 DC IVF as noted with LE edema. Dementia with behavioral disturbance Patient has long-standing dementia, Patient is not eating or drinking Seroquel has been discontinued to avoid oversedation. 04/03 palliative care consulted, the patient is DO NOT RESUSCITATE. Patient has not had any episodes of agitation and is pleasantly demented. HTN (hypertension) BP elevated on 03/30 - dose of amlodipine was increased to 10 mg po daily Bp still uncontrolled - will start patient on cardura 2 mg at bedtime. Blood pressure stable. Continue the patient on amlodipine 10 mg by mouth daily and Cardura 2 mg by mouth at bedtime. DM (diabetes mellitus) Continue AzaSite with insulin NovoLog. Blood sugar stable. Debility Patient has physical deconditioning. Physical therapy consulted. Physical therapy recommends PT at rehabilitation and the use of a wheelchair. Moderate protein malnutrition Due to poor oral intake. Recommended 1999 ADA diet, which is a PhD and encourage by mouth intake. Continue megestrol acetate, patient's intake is improving. Dietitian was consulted. Currently count was obtained from 03/31 to 04/02. Patient is noted to be eating more. Dietitian recommended glycerin3 times a day. Continue with Megace. Continue with encourage by mouth and supplement intake and assist patient at mealtimes. Hypophosphatemia Likely due to previous poor oral intake. Started the patient on Neutra-Phos on 2016. Hypophosphatemia resolved with phosphorus 2.5. Result. Continue to monitor phosphorus. Hematuria Reported hematuria by RN. Will DC heparin SQ. UA (+) - start the patient on Rocephin and fu urine culture. Urine culture grew Proteus Mirabilis - DC IV Rocephin and start Ceftin for a total of 7 days Hematuria resolved. DVT prophylaxis: SCDs, continue to hold Lovenox. Discharge Planning Discharge pending placement. Case discussed with case sealer , plan to [place] to SNF ( [place] of state) on Thursday, CM following for DC plan. Discussed with the patient, nurse. Problem Qualifiers (1) HTN (hypertension): Qualified Code: I10 - Essential hypertension (2) DM (diabetes mellitus): Qualified Code: E11.8 - Type 2 diabetes mellitus with complication, without long-term current use of insulin Marta Borrego MD Apr 06, 2016 09:53
[2016-04-06 12:06] VITALS: BP 145/63; PULSE 89; RESP 20; TEMP 97.7; O2SAT 97
[2016-04-06 16:16] VITALS: BP 125/60; PULSE 63; RESP 20; TEMP 97.8; O2SAT 97
[2016-04-06 20:00] VITALS: BP 112/57; PULSE 68; RESP 16; TEMP 97.9; O2SAT 97
[2016-04-06] MEDS: DOXAZOSIN MESYLATE 2 MG TAB PO SCH (21:16)
[2016-04-07] VITALS: BP 115/45; PULSE 59; RESP 16; TEMP 97.8; O2SAT 99
[2016-04-07 04:00] VITALS: BP 150/40; PULSE 73; RESP 16; TEMP 97.8; O2SAT 94
[2016-04-07] MEDS: POTASSIUM PHOSPHATE/SODIUM PHOSPHATE 250 MG TAB PO SCH ×3 (05:40→22:31)
[2016-04-07] MEDS: INSULIN ASPART SUPPLEMENTAL SCALE SQ SCH ×4 (06:09→22:36)
[2016-04-07] MEDS: SODIUM CHLORIDE 0.9% FLUSH 5 ML FLUSH FLUSH SCH ×2 (09:00→22:36)
[2016-04-07] MEDS: MEGESTROL ACETATE SUSP 400 MG/10 ML CUP PO SCH (09:50)
[2016-04-07] MEDS: ENOXAPARIN SODIUM 40 MG/0.4 ML SYRINGE SQ SCH (09:50)
[2016-04-07] MEDS: CEFUROXIME AXETIL 500 MG TAB PO SCH ×2 (11:30→22:30)
--- NOTE | 2016-04-07 13:56 | HHI.DS ---
Discharge Summary Admission Date Mar 30, 2016 at 09:29 Discharge Date: Apr 07, 2016 Admitting Diagnosis (1) Acute renal injury ICD Code: N17.9 Diagnosis: Principal (2) CKD (chronic kidney disease), stage III ICD Code: N18.3 Diagnosis: Secondary (3) Dementia with behavioral disturbance ICD Code: F03.91 Diagnosis: Secondary (4) HTN (hypertension) ICD Code: I10 Diagnosis: Secondary (5) DM (diabetes mellitus) ICD Code: E11.9 Diagnosis: Secondary (6) Debility ICD Code: R53.81 Diagnosis: Secondary (7) Moderate protein malnutrition ICD Code: E44.0 Diagnosis: Secondary (8) Hypophosphatemia ICD Code: E83.39 Diagnosis: Secondary (9) Hematuria ICD Code: R31.9 Diagnosis: Secondary Procedures none Brief History - From Admission 80-year-old white male with a history of dementia, hypertension, diabetes mellitus type 2, chronic kidney disease stage III who was recently admitted to psychiatric unit for dementia with behavior disturbance who was recently transferred to be admitted to the medical surgical floor due to acute kidney injury superimposed on chronic kidney disease stage III due to poor oral intake and dehydration and increased sedation due to Seroquel use. At this time, patient is sitting in the geriatric chair pleasantly confused, he was able to follow simple commands 11 exam and his heart and lungs. He has no questions for me. He tells me he can do whatever I wanted. CBC/BMP: 04/03/16 0531 PE at Discharge GENERAL: 80 yo male, appears in nad, alert and oriented by name. SKIN: Warm and dry. HEAD: Atraumatic. Normocephalic. EYES: Pupils equal and round. No scleral icterus. No injection or drainage. ENT: No nasal bleeding or discharge. Mucous membranes pink and moist. NECK: Trachea midline. No JVD. CARDIOVASCULAR: Regular rate and rhythm. RESPIRATORY: No accessory muscle use. Clear to auscultation. Breath sounds equal bilaterally. GASTROINTESTINAL: Abdomen soft, non-tender, nondistended. Hepatic and splenic margins not palpable. MUSCULOSKELETAL: BP 2+ LE edema. Extremities without clubbing, cyanosis. No obvious deformities. NEUROLOGICAL: Awake and alert x name only, at baseline. Muscle strength in the arms and legs grossly normal. Normal speech. Poor judgement. Hospital Course Acute renal injury 80-year-old male with what appears to be end-stage dementia transferred from psychiatric unit for dehydration, acute kidney injury due to poor oral intake. The patient's close taking back to [place]. Apparently transport has been arranged for him to go back on Thursday. JOSE on CKD stage III is likely due to dehydration and poor oral intake in the psychiatric unit. Continue with IV fluids and monitor renal function. 03/31 Creatinine trending down from 1.63-1.41, good urine output. Continue IV normal saline and to monitor BUN and creatinine. 04/02 Creatinine continues to trend down. 04/03 Creatinine stable. CKD (chronic kidney disease), stage III As above. Baseline creatinine 1.3 to 1.4 DC IVF as noted with LE edema. Dementia with behavioral disturbance Patient has long-standing dementia, Patient is not eating or drinking Seroquel has been discontinued to avoid oversedation. 04/03 palliative care consulted, the patient is DO NOT RESUSCITATE. Patient has not had any episodes of agitation and is pleasantly demented. HTN (hypertension) BP elevated on 03/30 - dose of amlodipine was increased to 10 mg po daily Bp still uncontrolled - will start patient on cardura 2 mg at bedtime. Blood pressure stable. Continue the patient on amlodipine 10 mg by mouth daily and Cardura 2 mg by mouth at bedtime. DM (diabetes mellitus) Continue AzaSite with insulin NovoLog. Blood sugar stable. Debility Patient has physical deconditioning. Physical therapy consulted. Physical therapy recommends PT at rehabilitation and the use of a wheelchair. Moderate protein malnutrition Due to poor oral intake. Recommended 1999 ADA diet, which is a PhD and encourage by mouth intake. Continue megestrol acetate, patient's intake is improving. Dietitian was consulted. Currently count was obtained from 03/31 to 04/02. Patient is noted to be eating more. Dietitian recommended glycerin3 times a day. Continue with Megace. Continue with encourage by mouth and supplement intake and assist patient at mealtimes. Hypophosphatemia Likely due to previous poor oral intake. Started the patient on Neutra-Phos on 2016. Hypophosphatemia resolved with phosphorus 2.5. Result. Continue to monitor phosphorus. Hematuria Reported hematuria by RN. Will DC heparin SQ. UA (+) - start the patient on Rocephin and fu urine culture. Urine culture grew Proteus Mirabilis - DC IV Rocephin and start Ceftin for a total of 7 days Hematuria resolved. DVT prophylaxis: SCDs, continue to hold Lovenox. Discharge Planning Discharge pending placement. Case discussed with casework manager , plan to [place] SNF ( [place] of state) 04/07, discussed with the CM. CM following for DC plan. Patient improved was DC to SNF in [facility] . To follow up as OP with PP and consultants. Pt Condition on Discharge: Fair Discharge Disposition: Discharge to SNF Discharge Time: > 30 minutes Discharge Instructions DIET: Follow Instructions for: Heart Healthy Diet, Diabetic Diet Activities you can perform: Regular-No Restrictions Follow up Referrals: PCP Follow-up - 1 Week New Medications: Doxazosin (Cardura) 2 Mg Tab 2 MG PO HS Blood Pressure Management #30 TAB Megestrol Liq (Megestrol Liq) 40 Mg/Ml Susp 400 MG PO DAILY poor appetite #1 BOTTLE Continued Medications: Amlodipine (Norvasc) 5 Mg Tab 5 MG PO DAILY Blood Pressure Management #30 TAB Donepezil (Donepezil) 5 Mg Tab 5 MG PO HS Dementia #30 Ref 0 TAB Insulin Aspart Inj (Novolog Inj) 1,000 Unit/10 Ml Vial 1-9 UNITS SQ ACHS sugars < 70,0units; sugars 150-199,1 unit sugars 200-249,3 units; sugars 250-299,5 units sugars 300-349,7 units; sugars > 349,9 units Blood Sugar Management #10 Ref 0 ML Memantine (Namenda) 10 Mg Tab 10 MG PO BID Alzheimer Disease #30 Ref 0 TAB Discontinued Medications: Insulin Detemir Inj (Levemir Inj) 1,000 unit/ 10 ML Vial 10 UNITS SQ HS Blood Sugar Management Days 30 INJECTION Marta Borrego MD Apr 07, 2016 13:56
[2016-04-07 16:00] VITALS: BP 146/85; PULSE 68; RESP 20; TEMP 98.4; O2SAT 97
[2016-04-07 19:50] VITALS: BP 114/53; PULSE 64; RESP 16; TEMP 98; O2SAT 97
[2016-04-07] MEDS: DOXAZOSIN MESYLATE 2 MG TAB PO SCH (22:36)
== END 2016-04-07 23:24 | DRG 683 ==
LOC: N04B 21:55 → OBSVTOIN 03-30 09:29
PROVIDERS: ADMIT Hospitalist; ATTEND Hospitalist
DX: N17.9 Acute kidney failure, unspecified (principal); F02.81 Dementia in other diseases classified elsewhere, unspecified severity, with behavioral disturbance; E44.0 Moderate protein-calorie malnutrition; E11.22 Type 2 diabetes mellitus with diabetic chronic kidney disease; G30.9 Alzheimer's disease, unspecified; E86.0 Dehydration; I12.9 Hypertensive chronic kidney disease with stage 1 through stage 4 chronic kidney disease, or unspecified chronic kidney disease; N18.3 Chronic kidney disease, stage 3 (moderate); Z85.038 Personal history of other malignant neoplasm of large intestine; Z51.5 Encounter for palliative care; Z66 Do not resuscitate; E83.39 Other disorders of phosphorus metabolism
CPT/HCPCS: 76937; 80048; 80053; 81001; 82948; 83735; 84100; 85025; 85027; 87077; 87086; 87186; G0378; G8987-GP; G8988-GP; J0696; J1650; J1815; J7030; J7120